=== PATIENT | male | born 1950 | race Caucasian/White ===

== ENCOUNTER → 2021-12-16 08:34 | Outpatient (BNVA) | payer MEDICARE, SELFPAY | PROVIDERS: PCP Internal Medicine; Visit Provider Nurse Practitioner Family | DX: G20 Parkinson's disease (principal); G47.33 Obstructive sleep apnea (adult) (pediatric); G25.81 Restless legs syndrome; F39 Unspecified mood [affective] disorder | CPT/HCPCS: 99212 ==

== ENCOUNTER → 2022-03-20 13:09 | Outpatient (BNVA) | payer MEDICARE, SELFPAY | PROVIDERS: PCP Internal Medicine; Visit Provider Nurse Practitioner Family | DX: G20 Parkinson's disease (principal); G25.81 Restless legs syndrome; G47.33 Obstructive sleep apnea (adult) (pediatric); F39 Unspecified mood [affective] disorder; S62.521A Displaced fracture of distal phalanx of right thumb, initial encounter for closed fracture; S63.104A Unspecified dislocation of right thumb, initial encounter; S06.0X9A Concussion with loss of consciousness of unspecified duration, initial encounter | CPT/HCPCS: 99212 ==

== ENCOUNTER → 2022-06-21 11:22 | Outpatient (BNVA) | payer MEDICARE, SELFPAY | PROVIDERS: PCP Internal Medicine; Visit Provider Nurse Practitioner Family | DX: G20 Parkinson's disease (principal); G25.81 Restless legs syndrome; G47.33 Obstructive sleep apnea (adult) (pediatric); Z79.899 Other long term (current) drug therapy | CPT/HCPCS: 99212 ==

== ENCOUNTER → 2023-01-31 15:42 | Outpatient (BNVA) | payer MEDICARE, SELFPAY | PROVIDERS: PCP Internal Medicine; Visit Provider Nurse Practitioner Family | DX: G20 Parkinson's disease (principal); G25.81 Restless legs syndrome; F39 Unspecified mood [affective] disorder; G47.33 Obstructive sleep apnea (adult) (pediatric); F03.90 Unspecified dementia, unspecified severity, without behavioral disturbance, psychotic disturbance, mood disturbance, and anxiety; G47.52 REM sleep behavior disorder; Z86.73 Personal history of transient ischemic attack (TIA), and cerebral infarction without residual deficits; Z79.899 Other long term (current) drug therapy | CPT/HCPCS: 99212 ==

== ENCOUNTER → 2023-04-27 08:40 | Outpatient (BNVA) | payer MEDICARE, SELFPAY | PROVIDERS: PCP Internal Medicine; Visit Provider Nurse Practitioner Family | DX: G20 Parkinson's disease (principal); M54.50 Low back pain, unspecified; G47.33 Obstructive sleep apnea (adult) (pediatric); I63.81 Other cerebral infarction due to occlusion or stenosis of small artery | CPT/HCPCS: 99212 ==

== ENCOUNTER 2023-08-28 09:28 | Outpatient (AMB) | payer MEDICARE, SELFPAY ==
--- NOTE | 2023-08-28 09:38 | A.OFFVIS_ITS ---
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: No Allergies No Known Allergies Allergy (Verified 08/28/23 09:39) Medication List - Last Reconciled 08/28/23 by ARIN Ghotra aspirin 81 mg PO DAILY 30 days atenolol 50 mg PO DAILY atorvastatin 10 mg PO DAILY baclofen 5 - 10 mg (1 - 2 x 5 mg) PO BEDTIME 30 days bupropion HCl 100 mg PO TID carbidopa-levodopa 25-100 mg 2 tabs bid and 2-3 tabs qhs orally bedtime; 30 days clonazepam 0.5 mg PO BEDTIME 30 days dorzolamide-timolol 22.3-6.8 mg/mL ophthalmic (eye) dulaglutide (Trulicity) 1.5 mg subcut QWEEK furosemide mg PO gabapentin 600 mg PO TID glimepiride 4 mg PO DAILY isosorbide dinitrate 30 mg PO DAILY memantine 10 mg PO BID 30 days metformin ER 1,000 mg PO BID multivitamin (Daily Multi-Vitamin tablet) 1 tab PO DAILY paroxetine HCl 60 mg PO DAILY pramipexole 0.25 mg (2 x 0.125 mg) PO BEDTIME 30 days quetiapine 50 mg PO BEDTIME HPI HPI Comments History of Present Illness Details 73-yr-old male presents for f/u visit. Pt denies any significant interval medical history changes. Pt reports he has been intentionally losing weight using Go-[employer]. His low back pain is a better but he is still sore. He e feels it will get better if he loses some more weight, his back will feel better. Pt's current PD medication regimen: CD-LD 2-3 tabs bid- pt is not 100% sure. Pramipexole 0.25mg qhs. Quetiapine 50mg qhs. Do medication effects last between doses: Unsure ADL's: Overall Ind- slow. Now has a walk-in shower and a shower seat- tries not to take a shower if his is not home. 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 Constipation: Occasionally Freezing: Happens at times- so using his walker. Stiffness: he is often slow and sore. Tremor: Stable. Twice over the summer- he had full body shaking Falls: He feels his balance is worse. He fell twice over the summer. 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 Hallucinations: He is noticing more shadows and people around him. Memory: States STM not good- for instance, he states he will not remember what we've talked about today. His LTM is good. Sleep: He is sleeping better- now about 5 hrs straight a night Exercise: Not much- Other: [] PFS Medical History Diabetes mellitus HTN (hypertension) Hyperlipidemia Open dislocation of right thumb Osteoporosis Status post placement of bone anchored hearing aid (BAHA) Surgical History No pertinent past surgical history Family History (Updated 04/27/23 @ 08:56 by Dedra Cannon CMA) Mother Diabetes Cancer Family/Other Thyroid cancer Social History (Updated 08/28/23 @ 09:41 by Andreina Oakes CMA) Household Members: Spouse Housing: House Alcohol intake: current Alcohol intake frequency: a few times a week Patient Tobacco Use Status: Current everyday Tobacco user Review of Systems Const All systems reviewed & are unremarkable except as noted in HPI and below Physical Exam Vital Signs: Last Vital Signs Pulse 64 08/28/23 09:41 BP 120/76 08/28/23 09:41 Pulse Ox 95 08/28/23 09:41 Oxygen Delivery Method Room Air 08/28/23 09:41 Const General: cooperative and no acute distress Resp Effort & Inspection: normal respiratory effort and able to speak in complete sentences Neuro Other: General: A&O. Responding appropriately. Mild STM lapses- for instance w/ medication timing Chronic left facial asymmetry Mild [place] LUE rest and postural tremor BUE bradkinesia- L > R BLE bradykinesia- L > R LUE tone Slow to stand, stooped, steady gait w/ walker. Assessment & Plan Assessment & Plan (1) Parkinson's disease: Code(s): G20 - Parkinson's disease (2) REM sleep behavior disorder: Code(s): G47.52 - REM sleep behavior disorder (3) Restless leg syndrome: Code(s): G25.81 - Restless legs syndrome (4) Dementia: Code(s): F03.90 - Unspecified dementia, unspecified severity, without behavioral disturbance, psychotic disturbance, mood disturbance, and anxiety Plan For low back pain: Offered PT and pain management referal- pt declines at this time. Continue Baclofen 5-10mg prn. Warm packs x's 20 min prn Consider trying ?Rytary to improve duration of effect and reduce risk for hallucinations- info gievn to pt- he will discuss with and let me know. In the meantime, try Sinemet 25-100mg to 2 tabs tid- maybe use an alarm or times med box. Continue Pramipexole 0.125 mg 2 tabs qhs Continue Memantine 10mg bid Continue Gabapentin up to 1200mg qhs. Clonazepam 0.5mg qhs- prn for REM sleep behaviors. Continue Wellbutrin, Paxil- now managed by PCP.? Increase walking. Previous trials: Neupro patch- d/t skin irritation. f/u in 3-4 months or sooner prn Coding Level of Care Code Est Pt Level 4 (38754) Diagnoses Parkinson's disease G20 REM sleep behavior disorder G47.52 Restless leg syndrome G25.81 Dementia F03.90
[2023-08-28 09:41] VITALS: BP 120/76; PULSE 64; O2SAT 95
== END 2023-08-28 10:16 | disposition home or self-care (01) ==
PROVIDERS: PCP Internal Medicine; Visit Provider Nurse Practitioner Family
DX: G20.A1 Parkinson's disease without dyskinesia, without mention of fluctuations (principal); F02.82 Dementia in other diseases classified elsewhere, unspecified severity, with psychotic disturbance; G47.52 REM sleep behavior disorder; G25.81 Restless legs syndrome
CPT/HCPCS: 99214

== ENCOUNTER → 2023-08-28 09:28 | Outpatient (BNVA) | payer MEDICARE, SELFPAY | PROVIDERS: PCP Internal Medicine; Visit Provider Nurse Practitioner Family | DX: G20.A1 Parkinson's disease without dyskinesia, without mention of fluctuations (principal); G25.81 Restless legs syndrome; G47.52 REM sleep behavior disorder | CPT/HCPCS: 99212 ==

== ENCOUNTER 2023-12-21 09:24 | Outpatient (AMB) | payer MEDICARE, SELFPAY ==
[2023-12-21 09:32] VITALS: BP 138/82; PULSE 63; O2SAT 95; BMI 37.7
--- NOTE | 2023-12-21 09:32 | MHC.OFFVIS ---
Intake Vital Signs 12/21/23 09:32 Height 5 ft 11 in Weight 270 lb BMI 37.7 BP 138/82 Blood Pressure Location Rt brachial Position Sitting Pulse 63 Pulse Source Pulse Oximeter Pulse Oximetry (%) 95 Oxygen Delivery Method Room Air Intake Visit Reasons: 4M follow up-LVM Intake Note: Patient presents for 4 month follow up. Im having balance issues,forgetting things and seeing things. I get dizzy more than I have been. Allergies No Known Allergies Allergy (Verified 12/21/23 09:35) Medication List - Last Reconciled 12/21/23 by ARIN Ghotra aspirin 81 mg PO DAILY 30 days atenolol 50 mg PO DAILY atorvastatin 10 mg PO DAILY baclofen 5 - 10 mg (1 - 2 x 5 mg) PO BEDTIME 90 days bupropion HCl 100 mg PO TID carbidopa-levodopa 25-100 mg 2 tabs bid and 2-3 tabs qhs orally bedtime; 30 days carbidopa-levodopa 48.75-195 mg ER (Rytary) 2 caps PO TID 30 days clonazepam 0.5 mg PO BEDTIME 30 days dorzolamide-timolol 22.3-6.8 mg/mL ophthalmic (eye) dulaglutide (Trulicity) 1.5 mg subcut QWEEK furosemide mg PO gabapentin 600 mg PO TID glimepiride 4 mg PO DAILY isosorbide dinitrate 30 mg PO DAILY memantine 10 mg PO BID 30 days metformin ER 1,000 mg PO BID multivitamin (Daily Multi-Vitamin tablet) 1 tab PO DAILY paroxetine HCl 60 mg PO DAILY pramipexole 0.25 mg (2 x 0.125 mg) PO BEDTIME 30 days quetiapine 50 mg PO BEDTIME HPI HPI Comments History of Present Illness Details 73-yr-old male presents for f/u visit, accompanied by his . Pt had a recent dx of scalp basal cell CA, and is awaiting biopsy results from 2 other crown of head biopsy sites. F/b [facility], and was referred to surgeon at [facility]. Pt's current PD medication regimen: Rytary 48.75-195mg ordered as 2 caps tid but taking 3 caps bid. Do medication effects last between doses: unsure His low back feels better. Still using Baclofen mg qhs. ADL's: Overall Ind- slow. Has a walk-in shower and a shower seat- tries not to take a shower if his is not home. 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 Can be lightheaded when just sitting. thinks that he might not eat enough during the day. Constipation: Occasionally Freezing: The right leg can get stuck/heavy. Stiffness: he is often slow and sore. Tremor: Better since starting Rytary, but still varies. Tremor is worse when he has not slept well. More noticeable on the left. Posture: Leaning more to the right- while sitting or walking. The toes- are prone to posturing, sticking up straight . right foot is turning out more. Falls: None Hallucinations: Yes- sometimes bothersome- yesterday kept seeing a cat or a dog coming out of the hallway. May think his is in the bathroom. May wake up seeing someone staring at him. Mood: Increased stress- son has been ill lately. Memory: STM- difficulties. He may think that he had a conversation with his , but did not. His LTM is good. Sleep: Not sleeping as well- now 4 hrs per night, can be interrupted and gets up and takes a smoke outside w/ his dog. He can still take naps during the day. Exercise: Not much. [facility] Medical History (Updated 12/23/23 @ 20:58 by ARIN Ghotra) Parkinson's disease Status post placement of bone anchored hearing aid (BAHA) Open dislocation of right thumb Diabetes mellitus Osteoporosis Hyperlipidemia HTN (hypertension) Surgical History No pertinent past surgical history Family History Mother Diabetes Cancer Family/Other Thyroid cancer Social History Household Members: Spouse Housing: House Alcohol intake: current Alcohol intake frequency: a few times a week Patient Tobacco Use Status: Current everyday Tobacco user Review of Systems Const All systems reviewed & are unremarkable except as noted in HPI and below Physical Exam Vital Signs: Last Vital Signs Pulse 63 12/21/23 09:32 BP 138/82 12/21/23 09:32 Pulse Ox 95 12/21/23 09:32 Oxygen Delivery Method Room Air 12/21/23 09:32 BMI result Body Mass Index 37.7 Const General: cooperative and no acute distress Resp Effort & Inspection: normal respiratory effort and able to speak in complete sentences Neuro Other: General: A&O. Responding appropriately. Mild STM lapses. Chronic left facial asymmetry Mild [place] LUE rest and postural tremor BUE bradkinesia- L > R BLE bradykinesia- L > R LUE tone Slow to stand, stooped, short steps w/ RLE slight outturn, steady gait w/ walker. Assessment & Plan Assessment & Plan (1) Parkinson's disease without dyskinesia: Code(s): G20.A1 - Parkinson's disease without dyskinesia, without mention of fluctuations (2) Dementia: Code(s): F03.90 - Unspecified dementia, unspecified severity, without behavioral disturbance, psychotic disturbance, mood disturbance, and anxiety (3) Low back pain: Code(s): M54.50 - Low back pain, unspecified Plan For low back pain: Improved Continue Baclofen 5-10mg prn. Rytary has been helpful, however discussed that pt likely would have better benefit/side effect balance, as taking Rytary 3 caps bid may be exacerbating hallucination burden. Thus, try to take Rytary 48.75-195mg 2 caps tid. Continue Pramipexole 0.125 mg 2 tabs qhs Continue Memantine 10mg bid Continue Gabapentin up to 1200mg qhs. Clonazepam 0.5mg qhs- prn for REM sleep behaviors. Continue Wellbutrin, Paxil- now managed by PCP.? Increase walking. Previous trials: Neupro patch- d/t skin irritation. f/u in 3-4 months or sooner prn Coding Level of Care Code Est Pt Level 4 (90349) Diagnoses Parkinson's disease without dyskinesia G20.A1 Dementia F03.90 Low back pain M54.50
== END 2023-12-21 10:30 | disposition home or self-care (01) ==
PROVIDERS: PCP Internal Medicine; Visit Provider Nurse Practitioner Family
DX: G20.A1 Parkinson's disease without dyskinesia, without mention of fluctuations (principal); F03.90 Unspecified dementia, unspecified severity, without behavioral disturbance, psychotic disturbance, mood disturbance, and anxiety; M54.50 Low back pain, unspecified
CPT/HCPCS: 99214

== ENCOUNTER → 2023-12-21 09:24 | Outpatient (BNVA) | payer MEDICARE, SELFPAY | PROVIDERS: PCP Internal Medicine; Visit Provider Nurse Practitioner Family | DX: G20.A1 Parkinson's disease without dyskinesia, without mention of fluctuations (principal); M54.50 Low back pain, unspecified; F03.90 Unspecified dementia, unspecified severity, without behavioral disturbance, psychotic disturbance, mood disturbance, and anxiety | CPT/HCPCS: 99212 ==

== ENCOUNTER 2024-04-14 10:49 | Outpatient (AMB) | payer MEDICARE, SELFPAY ==
--- NOTE | 2024-04-14 10:50 | MHC.OFFVIS ---
Intake Visit Reasons: 4 MONTH F/U-CONF Intake Note: Patient following up 4 month. Allergies No Known Allergies Allergy (Verified 04/14/24 10:51) Medication List - Last Reconciled 04/14/24 by ARIN Ghotra aspirin 81 mg PO DAILY 30 days atenolol 50 mg PO DAILY atorvastatin 10 mg PO DAILY baclofen 5 - 10 mg (1 - 2 x 5 mg) PO BEDTIME 90 days bupropion HCl 100 mg PO TID carbidopa-levodopa 25-100 mg 2 tabs bid and 2-3 tabs qhs orally bedtime; 30 days carbidopa-levodopa 48.75-195 mg ER (Rytary) 2 caps PO TID 30 days clonazepam 0.5 mg PO BEDTIME 30 days dorzolamide-timolol 22.3-6.8 mg/mL ophthalmic (eye) dulaglutide (Trulicity) 1.5 mg subcut QWEEK furosemide mg PO gabapentin 600 mg PO TID glimepiride 4 mg PO DAILY isosorbide dinitrate 30 mg PO DAILY memantine 10 mg PO BID 30 days metformin ER 1,000 mg PO BID multivitamin (Daily Multi-Vitamin tablet) 1 tab PO DAILY paroxetine HCl 60 mg PO DAILY pramipexole 0.25 mg (2 x 0.125 mg) PO BEDTIME 30 days quetiapine 50 mg PO BEDTIME HPI Comments Details: 73-yr-old male presents for f/u televideo visit, accompanied by his . Pt reports he did have an integral fall, he was leaving his ENT office after having an ear wax removal. He states he felt ok, was not dizzy. Was walking with his walker when he was about to go through the exam room doorway when he just fell. He is not sure if the RLE was stuck/frozen. He is noticing that his RLE is freezing more.? His memory is variable- somedays//weeks he is very good and other days and weeks he does not remember well at all. His feels when he is eating better, his memory is better.? His eating pattern does not affect his PD s/s as much. He is prone to not eating much- if not hungry, he will not eat.? He takes fluids in the am,, but less so in the afternoon when he is in bed watching TV. This is a hospital bed- so bed is elevated.? He is still not sleeping well at night. Seeing shadows or ghosts. He may be talking to someone while awake- he states he is not aware of this.? Is talking and fighting in his sleep. Has had a few times of orthostatic lightheadedness. A few days ago, he stood up from bed, and fell backwards onto the bed. He is taking: Rytary 3 caps bid- as he was not good at taking 2 caps tid consistently. Pramipexole- 0.125mg 2 tabs qhs.? [facility] Medical History (Updated 12/23/23 @ 20:58 by ARIN Ghotra) Parkinson's disease Status post placement of bone anchored hearing aid (BAHA) Open dislocation of right thumb Diabetes mellitus Osteoporosis Hyperlipidemia HTN (hypertension) Surgical History No pertinent past surgical history Family History Mother Diabetes Cancer Family/Other Thyroid cancer Social History Household Members: Spouse Housing: House Alcohol intake: current Alcohol intake frequency: a few times a week Patient Tobacco Use Status: Current everyday Tobacco user Physical Exam Neuro Other: A&O. Responding appropriately. Mild STM lapses. Chronic left facial asymmetry Mild [place] Telehealth Telehealth Telehealth Platform: [facility] Location of provider rendering services: practice address Location of patient: address on file Patient Identification confirmed using: Name, : Yes Telehealth method: voice only Patient verbally consented to treatment: Yes Patient verbally consented to billing insurance company: Yes Patient informed of any privacy concerns related to visit: Yes Minutes spent on Phone/Video with Pt.: 25 Assessment & Plan Assessment & Plan (1) Parkinson's disease without dyskinesia: Code(s): G20.A1 - Parkinson's disease without dyskinesia, without mention of fluctuations Category: Medical (2) REM sleep behavior disorder: Code(s): G47.52 - REM sleep behavior disorder Category: Medical (3) Restless leg syndrome: Code(s): G25.81 - Restless legs syndrome Category: Medical (4) Dementia: Code(s): F03.90 - Unspecified dementia, unspecified severity, without behavioral disturbance, psychotic disturbance, mood disturbance, and anxiety Category: Medical Plan Discussed that I am concerned that taking Rytary 3 caps bid- is likely resulting in noticeable off and on times- thus periods of increased freezing and other periods of hallucinations. It is possible that the fall at the ENT office was d/t an off/freezing episode as it occurred as ppt was trying to cross the threshhold of a doorway. Thus, reduce Rytary 48.75-196mg from 3 caps bid to 2 caps bid. And add Pramipexole ER 0.375mg qhs- in hopes this improves on time- and thus reduces freezing episodes. May hold Pramipexole 0.125mg 2 tabs qhs, while trying above. Monitor for tremor, freezing epsiodes, hallucinations. Continue Memantine 10mg bid Continue Gabapentin up to 1200mg qhs- for RLS/PLMS. Continue Baclofen 5-10mg prn- for low back pain. Clonazepam 0.5mg qhs- prn for REM sleep behaviors. Continue Wellbutrin, Paxil- now managed by PCP.? Increase walking. Discussed tips to improve dietary intake- small amounts of calorie, nutrient dense foods. Previous trials: Neupro patch- d/t skin irritation. ? f/u in 6 months or sooner prn. Medications: New pramipexole ER 0.375 mg PO BEDTIME 30 days 30 tabs 6RF Changed From carbidopa-levodopa 48.75-195 mg ER (Rytary) divide evenly over waking hours 2 caps PO TID 30 days 180 caps 6RF To carbidopa-levodopa 48.75-195 mg ER (Rytary) 2 caps orally BID; divide evenly over waking hours 30 days 120 caps 6RF Discontinued carbidopa-levodopa 25-100 mg Discontinued Reason: Patient no longer taking 2 tabs bid and 2-3 tabs qhs orally bedtime; 30 days 210 tabs 6RF Coding Level of Care Code Tele Est Pt Level 4 (51501) Diagnoses Parkinson's disease without dyskinesia G20.A1 REM sleep behavior disorder G47.52 Restless leg syndrome G25.81 Dementia F03.90
== END 2024-04-14 13:19 | disposition home or self-care (01) ==
LOC: HO.HSMS 10:49
PROVIDERS: PCP Internal Medicine; Visit Provider Nurse Practitioner Family
DX: G20.A2 Parkinson's disease without dyskinesia, with fluctuations (principal); F02.82 Dementia in other diseases classified elsewhere, unspecified severity, with psychotic disturbance; G47.52 REM sleep behavior disorder; G25.81 Restless legs syndrome
CPT/HCPCS: 99443

== ENCOUNTER → 2024-04-14 10:49 | Outpatient (BNVA) | payer MEDICARE, SELFPAY | PROVIDERS: PCP Internal Medicine; Visit Provider Nurse Practitioner Family ==

== ENCOUNTER 2024-10-31 13:27 | Outpatient (AMB) | payer MEDICARE, SELFPAY ==
--- OUTSIDE RECORDS SUMMARY | 2024-10-31 13:30 | XMS_ITS ---
Author Organization [facility] Address [address] [place] [address] Care Team Providers Care [employer] Name Role Phone Imelda SELLERS, Marcin Primary Care Provider UnavailJeremy Fraser Unavailable [phone] Allergies No Known Allergies REASON FOR VISIT pcp 07/2024, Skin problem(s), Painful nail(s) aggravated by shoes causing difficulty standing/walking Medications Medication SIG (Take, Route, Frequency, Duration) Notes Start Date End Date Status Atorvastatin Calcium 10 MG TAKE 1 TABLET BY MOUTH EVERY DAY Oral for 90 Days Active buPROPion HCl ER (SR) 200 MG TAKE 1 TABLET BY MOUTH EVERY DAY WITH BREAKFAST Oral for 90 Days Active buPROPion HCl ER (SR) 200 MG Oral for 90 Days Active metFORMIN HCl ER 500 MG TAKE 2 TABLETS B Y MOUTH TWICE A DAY WITH MEALS Oral for 90 Days Active metFORMIN HCl ER 500 MG Oral for 90 Days Active Baclofen 5 MG Oral for 30 Days Active Gabapentin 600 MG Oral for 90 Days Active Gabapentin 600 MG TAKE 1 TABLET BY SHONA TH THREE TIMES A DAY Oral for 90 Days Active Latanoprost 0.005 % INSTILL 1 DROP INTO BOTH EYES EVERY NIGHT DIRECTED Ophthalmic for 90 Days Active Baclofen 5 MG TAKE 1-2 TABS ORALLY BEDTIME FOR 30 DAYS Oral for 30 Days Active Ammonium Lactate 12 % 1 application Externally to affected areas of dry skin to feet except for between the toes Twice a day for 30 days Active Tobramycin-dexAMETHasone 0.3-0.1 % Ophthalmic for 14 Days Activ e Latanoprost 0.005 % Ophthalmic for 90 Days Active Dorzolamide HCl-Timolol Mal 2-0.5 % INSTILL 1 DROP INTO BOTH EYES TWICE A DAY DIRECTED Ophthalmic for 50 Days Active Tobramycin-dexAMETHasone 0.3-0.1 % APPLY 4 DROPS INTO THE AFFECTED EAR TWICE A DAY X 14 DAYS Ophthalmic for 14 Days Active Rytary 48.75-195 MG TAKE 2 CAPS ORALLY TWICE A DAY DIVIDE EVENLY OVER WAKING HOURS Oral for 30 Days Active PARoxetine HCl 30 MG Oral for 90 Days Active Rytary 48.75-195 MG Oral for 30 Days Active PARoxetine HCl 30 MG TAKE 2 TABLETS BY M OUTH EVERY MORNING FOR 180 DAYS. Oral for 90 Days Active Dorzolamide HCl-Timolol Mal 2-0.5 % Ophthalmic for 50 Days Activ e Furosemide 20 MG Oral for 90 Days Active Memantine HCl 10 MG TAKE 1 TABLET BY SHONA TH TWICE A DAY Oral for 90 Days Active Ketoconazole 2 % External for 30 Days Not-Taking Furosemide 20 MG TAKE 1 TABLET BY SHONA TH EVERY OTHER DAY Oral for 90 Days Active Memantine HCl 10 MG Oral for 90 Days Active Isosorbide Mononitrate ER 30 MG Oral for 90 Days Active Aspirin Low Dose 81 MG TAKE 1 TABLET BY MOUTH EVERY DAY Oral for 90 Days Active Isosorbide Mononitrate ER 30 MG TAKE 1 TABLET BY MOUTH EVERY DAY Oral for 90 Days Active Atenolol 50 MG Oral for 90 Days Active Atenolol 50 MG TAKE 1 TABLET BY SHONA TH EVERY DAY Oral for 90 Days Active Atorvastatin Calcium 10 MG Oral for 90 Days Active Social History Tobacco Use: Social History Observation Description Date Details (start date - stop date) Current Smoker NA - NA Tobacco Control (Standard) Question Answer Notes Tobacco use: Current every day smoker Additional Findings: Tobacco user Moderate cigar ette smoker (10-19 cigs/day) AUDIT-C (Standard) Question Answer Notes Did you have a drink contain ing alcohol in the past year? Yes How often did you have six o r more drinks on one occasion in the past year? Never (0 point) How many drinks did you have on a typical day when you were drinking in the past year? 5 or 6 drinks (2 points) How often did you have a dri nk containing alcohol in the past year? Daily or almost daily (4 points) Points 6 Interpretation Positive Vital Signs Height 6ft in 10/28/2024 Weight 270 lbs 10/28/2024 BMI 36.61 kg/m2 10/28/2024 Blood pressure systolic 134 mm Hg 10/28/20 24 Blood pressure diastolic 80 mm Hg 024 Procedures Procedure Date Ordered Date Performed Result Body Sit e 73417-LVYULRZ NAIL, 6 OR MORE 10/28/2024 N/A Encounters Encounter Location Date Provider Diagnosis [facility] [address] [address] 10/28/2024 Jeremy Perales Xerosis of skin L85. 3 ; Pain in right toe(s) M79.674 ; Onychomycosis B35.1 and Pain in left toe(s) M79.675 Assessments Encounter Date Diagnosis (ICD Code) Assessment Notes Treatment Notes Treatment Clinical Notes Section Notes 10/28/2024 Xerosis of skin (ICD-10 - L85.3) 10/28/2024 Pain in right toe(s) (ICD-10 - M79.674) 10/28/2024 Onychomycosis (ICD-10 - B35.1) 10/28/2024 Pain in left toe(s) (ICD-10 - M79.675) Plan Of Treatment Medication Medication Name Sig Start Date Stop Date Notes Ammonium Lactate 12 % 1 application Exte rnally to affected areas of dry skin to feet except for between the toes Twice a day for 30 days Pending Test Test Name Order Date [id number] NAIL, 6 OR MORE 10/28/2024 Next Appt Details Follow Up: 60, Reason: Provider Name:Jeremy Perales, 01/13/2025 10:15:00 AM, [address] [facility], [place], [address], Procedure Notes * Category Sub-Category Detail Notes Debride Nail 6-10 Nail debridement Due to the cl inical pathology outlined in the exam findings, performance of this nail treatment is medically necessary as its management by an unskilled/untrained nonprofessional would put this patients foot and overall health at risk. Therefore, debridement to affected nail(s), as described in exam 1-5 digits B/L was performed exclusively by the physician of record to reduce/remove overall nail length, girth, thickness, subungual debris, and necrotic tissue, by manual and/or electrical means through the use of a nail nipper and/or dremel-type broach grinder, to a more viable healthy nail plate or bed tissue 6-10 nails in total. Silver nitrate was used for any petechial bleeding as necessary. Definitive antifungal treatment options, both pharmaceutical and surgical, have been reviewed and discussed with the patient. The patient solely prefers the use of intermittent/as needed professional debridement services for their nail condition and understands the need for additional periodic treatments to maintain effectiveness in symptomatic relief - 90082 Progress Notes * Ahmet ASHLEYOB:1950 (74 yo M)Acc No.[id number]:10/28/2024 Progress Notes Patient:?Jose ASHLEY Provider:?Jeremy Perales D.P.M. :1950???Age:74 Y???Sex:Male Rufino e:10/28/2024 Address:[address] [place], [place] [address] Pcp:Marcin Segura MD Subjective: * Chief Complaints: * ???Pcp 07/2024Skin problem(s )Painful nail(s) aggravated by shoes causing difficulty standing/walking * HPI: ???Skin problems:?Nature:?dryness , scaling.?Location:?Top, Bottom, Inside, Outside, Back, B/L.?Duration:?several months.?Onset/Cause:?unknown.?Course:?worse.? * ROS:?General/Constitutional:?Nausea?denies.?Vomiting?denies.?Hunger Thirst?denies.?Loss appetite?denies.?Chills?denies.?Fatigue?denies.?Fever?denies.?Night Sweats?denies.?Unexplained weight loss?denies.?Unexplained weight gain?denies.?HEENTM:?Dentures?denies.?Dizziness?denies.?Glasses/contacts?admits.?Retinopathy?den ies.?Blurred/double vision?denies.?TMJ?denies.?Discharge/drainage?denies.?Implants?denies.?Sore throat?denies.?Dental implants?denies.?Hard of hearing ?admits.?Difficulty chewing/swallowing/speaking?denies.?Nose bleeds?denies.?Sore mouth?denies.?Respiratory:?On O xygen?denies.?Pneumonia/pleurisy?denies.?Bronchitis?denies.?Emphysema?denies.?Co ughing?admits.?Cough blood?denies.?Shortness of breath?admits.?Wheezing?admits.?Cardiovascular:?Pacemaker?denies.?MVP?denies.?WPW?denies.?CHF?denies.?Heart attack?denies.?Septal defect?denies.?Rapid beat?denies.?Chest pain ?admits.?Atrial Fib.?denies.?Murmur/Palpitations?denies.?Gastrointestinal:?Hemorrhoids?denies.?Stomach/Abdominal pain?denies.?Dark blood stool?denies.?Irritable bowel ?denies.?Constipation?admits.?Diarrhea?denies.?Hematology:?Swelling?admits.?Clots?denies.?Varicose Veins?denies.?Bruising?denies.?Bleeding problem?denies.?Genitourinary:?Blood urine?denies.?Frequent/Painfu/urination/bladder control?denies.?Kidney stones?denies.?Infection (UTI)?denies.?Nephropathy?denies.?sex trans dis (STD)?denies.?Prostate?denies.?Musculoskeletal:?Hammertoes?denies.?Bunions?denies.?Back Pain?admits.?Muscle Cramps/ Resting?admits.?Muscle cramps / walking?denies.?Generalized aches and pains?admits.?Weakness?denies.?Integ.:?Sorto?denies.?Scars?denies.?Corns/calluses?denies.?Ingrown nails?denies.?Painful nails?admits.?Open Sores?denies.?Rashes?denies.?Neurologic:?Difficulty sleeping?admits.?Brain disorder?denies.?Numbness?admits.?Balance t rouble?admits.?Confusion?admits.?Fainting/blackouts?denies.?Tingling?admits.?Cade mors?admits.? * Medical History:? * Surgical History:?cochlear i mplant 2012Carpel Tunnel Revision 2012knee, meniscus 2009left knee replacement 2019varicose vein stripping 2017mastoidectomy 1977 * Hospitalization/Major Diagno stic Procedure:?Denies Past Hospitalization * Family History:?Mother: dece ased, type II diabetes, cancer.?Father: , stroke.? * Social History:?Tobacco Use:?Tobacco Control (Standard)?Tobacco use:?Current every day smoker ?Additional Findings: Tobacco user?Moderate cigarette smoker (10-19 cigs/day) ???Drugs/Alcohol:?Drugs?Have you used drugs other than those for medical reasons in the past 12 months??No ???Miscellaneous:?Caffeine: yes, frequency:, 2-3 cups per day. ?Children: yes, 4. ?Exercise: no. ?Marital status: . ?Occupation: weeks/months/years, Retired. ???Drug/Alcohol:?AUDIT-C (Standard)?Did you have a drink containing alcohol in the past year??Yes ?How often did you have six or more drinks on one occasion in the past year??Never (0 point) ?How many drinks did you have on a typical day when you were drinking in the past year??5 or 6 drinks (2 points) ?How often did you have a drink containing alcohol in the past year??Daily or almost daily (4 points) ?Points?6 ?Interpretation?Positive * Medications:?TakingFurosemid e 20 MG Tablet Oral Rytary 48.75-195 MG Capsule Extended Release Oral Rytary 48.75-195 MG Capsule Extended Release TAKE 2 CAPS ORALLY TWICE A DAY DIVIDE EVENLY OVER WAKING HOURS Oral PARoxetine HCl 30 MG Tablet Oral PARoxetine HCl 30 MG Tablet TAKE 2 TABLETS BY MOUTH EVERY MORNING FOR 180 DAYS. Oral Dorzolamide HCl-Timolol Mal 2-0.5 % Solution Ophthalmic Dorzolamide HCl-Timolol Mal 2-0.5 % Solution INSTILL 1 DROP INTO BOTH EYES TWICE A DAY DIRECTED Ophthalmic Tobramycin-dexAMETHasone 0.3-0.1 % Suspension APPLY 4 DROPS INTO THE AFFECTED EAR TWICE A DAY X 14 DAYS Ophthalmic Tobramycin-dexAMETHasone 0.3-0.1 % Suspension Ophthalmic Latanoprost 0.005 % Solution Ophthalmic Latanoprost 0.005 % Solution INSTILL 1 DROP INTO BOTH EYES EVERY NIGHT DIRECTED Ophthalmic Baclofen 5 MG Tablet TAKE 1-2 TABS ORALLY BEDTIME FOR 30 DAYS Oral Gabapentin 600 MG Tablet Oral Gabapentin 600 MG Tablet TAKE 1 TABLET BY MOUTH THREE TIMES A DAY Oral Baclofen 5 MG Tablet Oral metFORMIN HCl ER 500 MG Tablet Extended Release 24 Hour TAKE 2 TABLETS BY MOUTH TWICE A DAY WITH MEALS Oral metFORMIN HCl ER 500 MG Tablet Extended Release 24 Hour Oral buPROPion HCl ER (SR) 200 MG Tablet Extended Release 12 Hour TAKE 1 TABLET BY MOUTH EVERY DAY WITH BREAKFAST Oral buPROPion HCl ER (SR) 200 MG Tablet Extended Release 12 Hour Oral Atorvastatin Calcium 10 MG Tablet TAKE 1 TABLET BY MOUTH EVERY DAY Oral Atorvastatin Calcium 10 MG Tablet Oral Atenolol 50 MG Tablet Oral Atenolol 50 MG Tablet TAKE 1 TABLET BY MOUTH EVERY DAY Oral Isosorbide Mononitrate ER 30 MG Tablet Extended Release 24 Hour TAKE 1 TABLET BY MOUTH EVERY DAY Oral Isosorbide Mononitrate ER 30 MG Tablet Extended Release 24 Hour Oral Aspirin Low Dose 81 MG Tablet Delayed Release TAKE 1 TABLET BY MOUTH EVERY DAY Oral Furosemide 20 MG Tablet TAKE 1 TABLET BY MOUTH EVERY OTHER DAY Oral Memantine HCl 10 MG Tablet Oral Memantine HCl 10 MG Tablet TAKE 1 TABLET BY MOUTH TWICE A DAY Oral Taking Furosemide 20 MG Tablet Oral Taking Rytary 48.75-195 MG Capsule Extended Release Oral Taking Rytary 48.75-195 MG Capsule Extended Release TAKE 2 CAPS ORALLY TWICE A DAY DIVIDE EVENLY OVER WAKING HOURS Oral Taking PARoxetine HCl 30 MG Tablet Oral Taking PARoxetine HCl 30 MG Tablet TAKE 2 TABLETS BY MOUTH EVERY MORNING FOR 180 DAYS. Oral Taking Dorzolamide HCl-Timolol Mal 2-0.5 % Solution Ophthalmic Taking Dorzolamide HCl-Timolol Mal 2-0.5 % Solution INSTILL 1 DROP INTO BOTH EYES TWICE A DAY DIRECTED Ophthalmic Taking Tobramycin-dexAMETHasone 0.3-0.1 % Suspension APPLY 4 DROPS INTO THE AFFECTED EAR TWICE A DAY X 14 DAYS Ophthalmic Taking Tobramycin-dexAMETHasone 0.3-0.1 % Suspension Ophthalmic Taking Latanoprost 0.005 % Solution Ophthalmic Taking Latanoprost 0.005 % Solution INSTILL 1 DROP INTO BOTH EYES EVERY NIGHT DIRECTED Ophthalmic Taking Baclofen 5 MG Tablet TAKE 1-2 TABS ORALLY BEDTIME FOR 30 DAYS Oral Taking Gabapentin 600 MG Tablet Oral Taking Gabapentin 600 MG Tablet TAKE 1 TABLET BY MOUTH THREE TIMES A DAY Oral Taking Baclofen 5 MG Tablet Oral Taking metFORMIN HCl ER 500 MG Tablet Extended Release 24 Hour TAKE 2 TABLETS BY MOUTH TWICE A DAY WITH MEALS Oral Taking metFORMIN HCl ER 500 MG Tablet Extended Release 24 Hour Oral Taking buPROPion HCl ER (SR) 200 MG Tablet Extended Release 12 Hour TAKE 1 TABLET BY MOUTH EVERY DAY WITH BREAKFAST Oral Taking buPROPion HCl ER (SR) 200 MG Tablet Extended Release 12 Hour Oral Taking Atorvastatin Calcium 10 MG Tablet TAKE 1 TABLET BY MOUTH EVERY DAY Oral Taking Atorvastatin Calcium 10 MG Tablet Oral Taking Atenolol 50 MG Tablet Oral Taking Atenolol 50 MG Tablet TAKE 1 TABLET BY MOUTH EVERY DAY Oral Taking Isosorbide Mononitrate ER 30 MG Tablet Extended Release 24 Hour TAKE 1 TABLET BY MOUTH EVERY DAY Oral Taking Isosorbide Mononitrate ER 30 MG Tablet Extended Release 24 Hour Oral Taking Aspirin Low Dose 81 MG Tablet Delayed Release TAKE 1 TABLET BY MOUTH EVERY DAY Oral Taking Furosemide 20 MG Tablet TAKE 1 TABLET BY MOUTH EVERY OTHER DAY Oral Taking Memantine HCl 10 MG Tablet Oral Taking Memantine HCl 10 MG Tablet TAKE 1 TABLET BY MOUTH TWICE A DAY Oral Not-Taking/PRNKetoconazole 2 % Cream External Medication List reviewed and reconciled with the patientNot-Taking/PRN Ketoconazole 2 % Cream External Medication List reviewed and reconciled with the patient * Allergies:?N.K.D.A.yes[Aller gies Verified] Objective: * Vitals:?Ht: 6ft, Wt:270, BMI :36.61, Shoe size: 11.5 W, BP:134/80mm Hg, BS: 120, Ht-cm: 182.88 cm, Wt-k.47 kg. * ???Past Orders: ???Lab:HEMOGLOBIN A1C (GLYCO HEMOGLOBIN) (Order Date - 07/30/2024) (Collection Date & Time - 07/30/2024 10:43 AM) ? Value Reference Range ?TOTAL HEMOGLOBIN (HGBA1C) 6.5 * Examination: ???Ophthalmology Referral: ?DIABETES EYE EXAM?General Examination: ?GENERAL APPEARANCE:?Reveals a pleasant, alert, well-nourished, well- developed, well hydrated individual, who demonstrates proper attention to hygiene/body habitus, and is in no acute distress, Pt serves as own?historian for office visit today.?ORIENTED:?person, place, and time.?Neurological: ?SENSORY:?Neurological exam reveals intact sensorium, pain sensation normal, vibration sensation intact, pinprick sensation is normal in the lower extremities, Pt denies, anesthesia, burning, paresthesia, tingling, B/L.?DEEP TENDON REFLEXES:?Achilles, 2/4, B/L.?Vascular: ?DP PULSES(B):?2/4, B/L.?PT PULSES(B):?2/4, B/L.?CAPILLARY FILL TIME:?immediate, all digits, B/L.?TROPHIC CONDITION-TEXTURE/ELASTICITY/TURGOR/HAIR GROWTH(B):?normal, B/L.?TEMPERTURE GRADIENT(C):?warm to cool, proximal to distal, B/L.?PIGMENTATION:?normal, B/L.?EDEMA(C):?absent, B/L.?Dermatologic: ?SKIN FINDINGS:?Skin exam reveals normal texture, elasticity, and turgor. There are no masses. The interspaces are clear , Skin shows sign(s) of, dryness, scaling, in a stocking fashion, no fissure(s) present, B/L.?Orthopedic: ?MUSCLE STRENGTH:?5/5 all groups in a symmetrical fashion , B/L.?Nails: ?NAILS are:?Elongated, overgrown, dystrophic, lytic, greater than 3mm thick, discolored and friable with crumbly malodorous subungual debris, with pain on palpation 1-5 digits B/L.? Assessment: * Assessment: 1.?Xerosis of skin - L85.3?? ?Specify :Acute problem, Uncomplicated (3),Rx Management (4)???2.?Pain in right toe(s) - M79.674???3.?Onychomycosis - B35.1 (Primary)???4.?Pain in left toe(s) - M79.675??? Plan: * Treatment: 2.?Xerosis of skin? Start Ammonium Lactate Cream, 12 %, 1 application, Externally to affected areas of dry skin to feet except for between the toes, Twice a day, 30 days, 140, Refills 2.?? * Procedures:?Debride Nail 6-10:?Nail debridement?Due to the clinical pathology outlined in the exam findings, performance of this nail treatment is medically necessary as its management by an unskilled/untrained nonprofessional would put this patients foot and overall health at risk. Therefore, debridement to affected nail(s), as described in exam 1-5 digits B/L was performed exclusively by the physician of record to reduce/remove overall nail length, girth, thickness, subungual debris, and necrotic tissue, by manual and/or electrical means through the use of a nail nipper and/or dremel-type broach grinder, to a more viable healthy nail plate or bed tissue 6-10 nails in total. Silver nitrate was used for any petechial bleeding as necessary. Definitive antifungal treatment options, both pharmaceutical and surgical, have been reviewed and discussed with the patient. The patient solely prefers the use of intermittent/as needed professional debridement services for their nail condition and understands the need for additional periodic treatments to maintain effectiveness in symptomatic relief - 48913.? * Procedure Codes:?51969 DEBRI DE NAIL, 6 OR MORE * Preventive Medicine:? ??Counseling:?Discussion:?-13: Office or other outpatient visit for the evaluation and management of an established patient, which required a medically appropriate history and/or examination and LOW level of DECISION MAKING for: 1 STABLE ACUTE UNCOMPLICATED PROBLEM, 2 OR MORE MINOR PROBLEMS, OR 1 STABLE CHRONIC PROBLEM, THAT POSE(S) A LOW RISK FOR MORBIDITY/MORTALITY. The visit on the day of the encounter encompassed interpreting the data and educating the patient as to the nature of their condition, treatment options available according to their individual PMH, meds, allergies, and overall health/living conditions, as well as any potential risks or complications that may occur from a failure to adhere to, and participate in, the recommended course of therapy. The discussion included a complete verbal, and/or written explanation of the examination results, any x-rays taken, the proposed diagnosis, and outline of the treatment plan. A schedule for future care needs was also explained. The patient verbalized an understanding of the instructions at this time and agreed to be an active participant in their treatment. If the patient should think of any questions or concerns after the visit, I have encouraged the patient to call the office.?Xerosis:?The patient was counseled on the diagnosis, potential etiologies, and treatment options for their skin condition. We discussed the risks and benefits of each option from performing no treatment, to utilizing OTC topical skin creams/ointments, to utilizing prescription topical creams/ointments, to utilizing customized compounded topical medications and use of nocturnal occlusion with any/all previously detailed therapies. We discussed the advantages and disadvantages of each possible treatment and importance for adherence to all the recommended therapies for optimum success and avoid potential complications such as open sore/infection/possible hospitalization. We discussed the potential effectiveness of each topical preparation as well as each ones possible side effects and/or patient medication interactions. Patient questions re: use, dosage, successful outcomes, and application consistency were reviewed and the patient verbalized that all answers were clearly understood. The patient has decided to apply Rx skin creams to their feet save the interspaces while paying special attention to the heels. Such was sent to their pharmacy at the time of visit.? * Follow Up:?60 * Images: * Sign off status: Completed true * Provider:?Jeremy Perales D.P.M. Date:?10/12 Generated for Moira brian/Too/eTransmitting on:?10/31/2024 01:29 PM EST History and Physical Notes * HPI (History of Present Illness) Category Sub-Category Detail Notes Category Not es Skin problems Nature: dryness , scaling Location: Top, Bottom, Inside, Outside, Back, B/L Duration: several months Onset/Cause: unknown Course: worse Aggravated by: Examination Category Sub-Category Detail Notes Category Not es Neurological SENSORY: Neurological exa m reveals intact sensorium, pain sensation normal, vibration sensation intact, pinprick sensation is normal in the lower extremities, Pt denies, anesthesia, burning, paresthesia, tingling, B/L DEEP TENDON REFLEXES: Achilles, 2/4, B/L Dermatologic SKIN FINDINGS: Skin exam reveal s normal texture, elasticity, and turgor. There are no masses. The interspaces are clear , Skin shows sign(s) of, dryness, scaling, in a stocking fashion, no fissure(s) present, B/L Orthopedic MUSCLE STRENGTH: 5/5 all groups in a symm etrical fashion , B/L General Examination GENERAL APPEARANCE: Reveals a pleasant, alert, well- nourished, well-developed, well hydrated individual, who demonstrates proper attention to hygiene/body habitus, and is in no acute distress, Pt serves as own historian for office visit today ORIENTED: person, place, and t kelsey Ophthalmology Referral DIABETES EYE EXAM Procedure Perform ed:: Yes ?Date of Exam Performed: 07/30/2024 Diabetic Retinopathy Screening:: Yes Findings of Diabetic Eye Exam:: no retin opathy Vascular DP PULSES (B): 2/4, B/L PT PULSES (B): 2/4, B/L CAPILLARY FILL TIME: immediate, all digi ts, B/L TEMPERTURE GRADIENT (C): warm to cool, p roximal to distal, B/L TROPHIC CONDITION-TEXTURE/ELASTICITY/TURGOR/HAIR GROWTH (B): normal, B/L EDEMA (C): absent, B/L PIGMENTATION: normal, B/L Nails NAILS are: Elongated, overg rown, dystrophic, lytic, greater than 3mm thick, discolored and friable with crumbly malodorous subungual debris, with pain on palpation 1-5 digits B/L
--- OUTSIDE RECORDS SUMMARY | 2024-10-31 13:30 | XMS_ITS ---
Author Name [facility] Organization Unknown Results Test Name/Text Value Interpretation Date Range Source Potassium SerPl-sCnc 4.2mmol/L Normal [id number] 3.4 - 5.3 [facility] pH Ur Strip 6 Normal [id number] 5 - 8 [facility] Ketones Ur Strip-mCnc Normal [id number] - [facility] Sp Gr Ur Strip 1.004 Normal [id number] 1.003 - 1.03 [facility] Nitrite Ur Ql Strip Normal [id number] - [facility] Prot Ur Strip-mCnc Normal [id number] - [facility] Leukocyte esterase Ur Ql Strip Normal [id number] - [facility] Glucose Ur Strip-mCnc Normal [id number] - [facility] Hgb Ur Ql Strip Normal [id number] - [facility] Bilirub Ur Strip-mCnc Normal [id number] - [facility] Color Ur Normal [id number] [facility] Clarity Ur Normal [id number] [facility] Neutrophils num Bld Auto 6.36Thou/uL Normal [id number] 2 - 7.5 [facility] Monocytes num Bld Auto 0.68Thou/uL Normal [id number] 0. 2 - 1.5 [facility] Eosinophil num Bld Auto 0.11Thou/uL Normal [id number] 0 - 0.7 [facility] WBC num Bld Auto 9.6Thou/uL Normal [id number] 4 - 11 [facility] MCHC RBC Auto-mCnc 33.4g/dL Normal [id number] 30 - 36 [facility] Monocytes/leuk NFr Bld Auto 7.1% Normal [id number] [facility] Hct VFr Bld Auto 39.5% Normal [id number] 39 - 54 [facility] RBC num Bld Auto 4.09Mil/uL Below low normal [id number] 4. 5 - 6.2 [facility] RDW RBC Auto-Rto 14.3% Normal [id number] 11.5 - 14. 5 [facility] PMV Bld Auto 9.5fL Normal [id number] 7.5 - 12.[address] Eosinophil/leuk NFr Bld Auto 1.1% Normal [id number] [facility] MCH RBC Qn Auto 32.3pg Above high normal [id number] 27 - 31 [facility] Basophils/leuk NFr Bld Auto 0.5% Normal [id number] [facility] Basophils num Bld Auto 0.05Thou/uL Normal [id number] 0 - 0.2 [facility] Platelet num Bld Auto Normal [id number] 150 - 450 [facility] Neutrophils/leuk NFr Bld Auto 66.6% Normal [id number] [facility] Immature Platelet Fraction 4% Normal [id number] 1.2 - 8.6 [facility] MCV RBC Auto 97fL Normal [id number] 80 - 100 [facility] T Lymphocytes/leuk NFr Bld Auto 24.2% Normal [id number] [facility] Lymphocytes num Bld Auto 2.32Thou/uL Normal [id number] 1.5 - 4.5 [facility] Imm Granulocytes/leuk NFr Bld Auto 0.5% Normal [id number] [facility] Hgb Bld-mCnc 13.2g/dL Normal [id number] 13 - 17.7 [facility] T Imm Granulocytes num Bld Auto 0.05Thou/uL Normal [id number] 0 - 0.1 [facility] CK SerPl-cCnc 170U/L Normal [id number] 24 - [address] Lipase SerPl-cCnc 77U/L Above high normal [id number] 1 3 - 60 [facility] Magnesium SerPl-mCnc 1.7mg/dL Normal [id number] 1.6 - 2.7 [facility] AST SerPl-cCnc Normal [id number] 10 - 55 [facility] ALT SerPl-cCnc Normal [id number] 10 - 55 [facility] Creat SerPl-mCnc 0.9mg/dL Normal [id number] 0.5 - 1.3 [facility] Globulin Ser Calc-mCnc 3.3g/dL Normal [id number] 1.5 - 3.9 [facility] CO2 SerPl-sCnc 18mmol/L Below low normal [id number] 22 - 33 [facility] Albumin/Glob SerPl 1.3Ratio Normal [id number] [facility] Anion Gap Bld-sCnc 16 Normal [id number] 7 - 17 [facility] Potassium SerPl-sCnc Normal [id number] 3.4 - 5.3 [facility] Bilirub SerPl-mCnc 0.3mg/dL Normal [id number] 0.2 - 1 [facility] Calcium SerPl-mCnc 9.1mg/dL Normal [id number] 8.7 - 10 .5 [facility] BUN SerPl-mCnc 14mg/dL Normal [id number] 8 - 21 [facility] CCT ALP SerPl-cCnc 100U/L Normal [id number] 45 - 128 [facility] GFR/BSA.pred SerPlBld GWN-OTG-NaVIvh 90 Normal [id number] 59 - [facility] Chloride SerPl-sCnc 97mmol/L Below low normal [id number] 98 - 107 [facility] BUN/Creat SerPl 16Ratio Normal [id number] 10 - 25 [facility] Albumin SerPl-mCnc 4.2g/dL Normal [id number] 3.4 - 4. 8 [facility] Prot SerPl-mCnc 7.5g/dL Normal [id number] 6.3 - 8.3 [facility] Glucose SerPl-mCnc 86mg/dL Normal [id number] 65 - 99 [facility] Sodium SerPl-sCnc 131mmol/L Below low normal [id number] 13 6 - 145 [facility]
--- OUTSIDE RECORDS SUMMARY | 2024-10-31 13:30 | XMS_ITS | Patient Health Record ---
[facility] Organization [facility] Address [address] [place] [address] Care Team Providers Care Pier Hand Helper Name Role Phone Imelda SELLERS, Marcin Primary Care Provider UnavailJeremy Fraser Unavailable [phone] Allergies No Known Allergies Results Component Value Reference Range Notes HEMOGLOBIN A1C (GLYCOHEMOGLO BIN) Reviewed date:10/28/2024 10:44:32 AM Interpretation: Performing Lab: Notes/Report: TOTAL HEMOGLOBIN (HGBA1C) 6.5 Reason For Referral No Information Medications Medication SIG (Take, Route, Frequency, Duration) Notes Start Date End Date Status Isosorbide Mononitrate ER 30 MG TAKE 1 TABLET BY MOUTH EVERY DAY Oral for 90 Days Active Ammonium Lactate 12 % 1 application Externally to affected areas of dry skin to feet except for between the toes Twice a day for 30 days Active Atenolol 50 MG Oral for 90 Days Active Atenolol 50 MG TAKE 1 TABLET BY SHONA TH EVERY DAY Oral for 90 Days Active Atorvastatin Calcium 10 MG TAKE 1 TABLET BY MOUTH EVERY DAY Oral for 90 Days Active Atorvastatin Calcium 10 MG Oral for 90 Days Active buPROPion HCl [...] 500 MG Oral for 90 Days Active Isosorbide Mononitrate ER 30 MG Oral for 90 Days Active Aspirin Low Dose 81 MG TAKE 1 TABLET BY MOUTH EVERY DAY Oral for 90 Days Active Gabapentin 600 MG Oral for 90 Days Active Gabapentin 600 MG TAKE 1 TABLET BY SHONA TH THREE TIMES A DAY Oral for 90 Days Active Latanoprost 0.005 % INSTILL 1 DROP INTO BOTH EYES EVERY NIGHT DIRECTED Ophthalmic for 90 Days Active Baclofen 5 MG TAKE 1-2 TABS ORALLY BEDTIME FOR 30 DAYS Oral for 30 Days Active Tobramycin-dexAMETHasone 0.3-0.1 % Ophthalmic for 14 Days Activ e Latanoprost 0.005 % Ophthalmic for 90 Days Active Dorzolamide HCl-Timolol Mal 2-0.5 % INSTILL 1 DROP INTO BOTH EYES TWICE A DAY DIRECTED Ophthalmic for 50 Days Active Memantine HCl 10 MG TAKE 1 TABLET BY SHONA TH TWICE A DAY Oral for 90 Days Active Tobramycin-dexAMETHasone 0.3-0.1 % APPLY 4 DROPS INTO THE AFFECTED EAR TWICE A DAY X 14 DAYS Ophthalmic for 14 Days Active Ketoconazole 2 % External for 30 Days Not-Taking PARoxetine HCl 30 MG TAKE 2 TABLETS BY M OUTH EVERY MORNING FOR 180 DAYS. Oral for 90 Days Active Furosemide 20 MG TAKE 1 TABLET BY SHONA TH EVERY OTHER DAY Oral for 90 Days Active Dorzolamide HCl-Timolol Mal 2-0.5 % Ophthalmic for 50 Days Activ e Memantine HCl 10 MG Oral for 90 Days Active Rytary 48.75-195 MG TAKE 2 CAPS ORALLY TWICE A DAY DIVIDE EVENLY OVER WAKING HOURS Oral for 30 Days Active PARoxetine HCl 30 MG Oral for 90 Days Active Baclofen 5 MG Oral for 30 Days Active Furosemide 20 MG Oral for 90 Days Active Rytary 48.75-195 MG Oral for 30 Days Active Social History Tobacco Use: Social [...] points) Points 6 Interpretation Positive Vital Signs Blood pressure diastolic 80 mm Hg 10/28/2024 Height 6ft in 10/28/2024 Blood pressure systolic 134 mm Hg 10/28/2024 Weight 270 lbs 10/28/2024 BMI 36.61 kg/m2 10/28/2024 Procedures Procedure Date Ordered Date Performed Result Body Sit e 29285-[id number] NAIL, 6 OR MORE 10/28/2024 N/A Encounters Encounter Location Date Provider Diagnosis [facility] [address] [place] [address] 10/28/2024 Jeremy Perales Xerosis of skin L85. [...] toe(s) (ICD-10 - M79.675) Plan Of Treatment Pending Test Test Name Order Date [id number] NAIL, 6 OR MORE 10/28/2024 Next Appt Details Provider Name:Jeremy Borden Diaz, 01/13/2025 10:15:00 AM, [address], [place], [address], Insurance Providers Payer Name Payer Address Payer Phone Subscriber Number Group Number Insured Name Patient Relationship to Insured Coverage Start Date Coverage End Date [facility] [address] [place] [address] [id number] Jose Aguilar Self - patient is the insured Medical (General) History Medical History History ICD Code Alzheimers disease Angina Anxiety Arthritis Back,Hip,and Knee pain Broken bones CAD (Cholesterol) skin cancer covid-19 Dementia Depression type II diabetes Gout Headaches/Migraines Heart disease Hiatal hernia High Blood Pressure Parkinsons disease Poor circulation Warts Stroke Measles Mumps Chicken pox Joint implants/screws Surgical History Surgery Date(Month/Year) cochlear implant 2012 Carpel Tunnel Revision 2012 knee, meniscus 2009 left knee replacement 2019 varicose vein stripping 2017 mastoidectomy 1978
[2024-10-31 13:40] VITALS: BMI 37.7
--- NOTE | 2024-10-31 13:40 | A.OFFVIS_ITS ---
Vital Signs 10/31/24 13:40 Height 5 ft 11 in Weight 270 lb BMI 37.7 Intake Visit Reasons: 6 month F/U Intake Note: Patient presents for 6 month follow up Allergies No Known Allergies Allergy (Verified 10/31/24 13:46) Medication List - Last Reconciled 10/31/24 by ARIN Ghotra aspirin 81 mg PO DAILY 30 days atenolol 50 mg PO DAILY atorvastatin 10 mg PO DAILY baclofen 5 - 10 mg (1 - 2 x 5 mg) PO BEDTIME 90 days bupropion HCl 100 mg PO TID carbidopa-levodopa 48.75-195 mg ER (Rytary) 2 caps orally BID; divide evenly over waking hours 30 days clonazepam 0.5 mg PO BEDTIME 30 days dorzolamide-timolol 22.3-6.8 mg/mL ophthalmic (eye) dulaglutide (Trulicity) 1.5 mg subcut QWEEK furosemide mg PO gabapentin 600 mg PO TID glimepiride 4 mg PO DAILY isosorbide dinitrate 30 mg PO DAILY memantine 10 mg PO BID 30 days metformin ER 1,000 mg PO BID multivitamin (Daily Multi-Vitamin tablet) 1 tab PO DAILY paroxetine HCl 60 mg PO DAILY pramipexole ER 0.375 mg PO BEDTIME 30 days quetiapine 50 mg PO BEDTIME HPI Comments Details: 74-yr-old male presents for f/u visit for Parkinson's. Patient's was unable to make it to today's appointment, however she did send a list of questions and concerns, including concerns regarding mood liability, cognitive functioning, gait difficulties. Pt reports he is feeling ok. ADL's: Needing help with getting dressed Swallowing: No issues Cough: Denies Drooling: Denies Orthostatic lightheadedness: Only if he stands up too quickly- but he is trying to get up slower. Or can feel spinning dizzines/off-balance if he turns quickly. Constipation: At times, self-resolves Urinary symptoms: Denies Tremor: His states he is shaking more Dyskinesia: Denies Stiffness: Generally stiff. Has lower back pain. Gait changes: Sometimes the foot drags, then he jsut stops until it passes- usually < 1 min. Freezing: The dragging foot Falls: He had a fall over the [place]- fell in the bathroom- between the wall and toilet and needed 3 people to help him out. Mood: Mood can be variable- can quickly go from being in a good mood to a bad mood. Hallucinations: Yes- more prominent. Sometimes he thinks he sees people in the house, or sees his dog who in April. Memory: Today it is not to bad. Other times, he forgets conversations. notes, he is spacing out. Sleep: Not sleeping as well. Sleeping 2-3 hrs at night. Takes a 1-2 hr nap at times, or may sleep the entire afternoon away. Not using his CPAP. Exercise: Not much He is taking: Rytary 3 caps bid- as he was not good at taking 2 caps tid consistently. Pramipexole- 0.125mg 2 tabs qhs.? PFSH Medical History Parkinson's disease Status post placement of bone anchored hearing aid (BAHA) Open dislocation of right thumb Diabetes mellitus Osteoporosis Hyperlipidemia HTN (hypertension) Surgical History No pertinent past surgical history Family History Mother Diabetes Cancer Family/Other Thyroid cancer Social History Household Members: Spouse Housing: House Alcohol intake: current Alcohol intake frequency: a few times a week Patient Tobacco Use Status: Current everyday Tobacco user Physical Exam Vital Signs: BMI result Body Mass Index 37.7 Const General: cooperative and no acute distress Resp Effort & Inspection: normal respiratory effort and able to speak in complete sentences Neuro Other: General: A&O. Responding appropriately. Mild STM lapses- more so with medications, healthcare specific information. Chronic left facial asymmetry Mild [place] LUE rest and postural tremor BUE bradkinesia- L > R BLE bradykinesia- L > R LUE tone Slow to stand, stooped, short steps w/ RLE slight outturn, steady gait w/ walker. Assessment & Plan Assessment & Plan (1) Parkinson's disease without dyskinesia: Code(s): G20.A1 - Parkinson's disease without dyskinesia, without mention of fluctuations Category: Medical (2) REM sleep behavior disorder: Code(s): G47.52 - REM sleep behavior disorder Category: Medical (3) Restless leg syndrome: Code(s): G25.81 - Restless legs syndrome Category: Medical (4) Dementia: Code(s): F03.90 - Unspecified dementia, unspecified severity, without behavioral disturbance, psychotic disturbance, mood disturbance, and anxiety Category: Medical Plan Try to increase Rytary 48.75-196mg from 2 caps bid to 2 caps t.i.d.. Continue Pramipexole ER 0.375mg qhs- in hopes this improves on time- and thus reduces freezing episodes. Monitor for tremor, freezing epsiodes, hallucinations. Continue Memantine 10mg bid Continue Gabapentin up to 1200mg qhs- for RLS/PLMS. Continue Baclofen 5-10mg prn- for low back pain. Resume Clonazepam 0.5mg qhs- prn for REM sleep behaviors. Continue Wellbutrin, Paxil- now managed by PCP.? Increase physical activity Will request psychiatry consult to help optimize mood and sleep symptoms. Patient is not interested in resuming CPAP therapy. Previous trials: Pramipexole IR, not fully effective. Future considerations: VYALEV (foscarbidopa/foslevodopa)- once it is available more widely, as this would provide 247 administration of levodopa which has historically been challenging for this patient to consistently take levodopa throughout the day. Previous trials: Neupro patch- d/t skin irritation. ? f/u in 6 months or sooner prn. Orders: Referrals Psychiatry Outpatient Consultation Service F03.90 - Unspecified dementia, unspecified severity, without behavioral disturbance, psychotic disturbance, mood disturbance, and anxiety, F39 - Unspecified mood [affective] disorder, G20.A1 - Parkinson's disease without dyskinesia, without mention of fluctuations Medications: Changed From carbidopa-levodopa 48.75-195 mg ER (Rytary) 2 caps orally BID; divide evenly over waking hours 30 days 120 caps 6RF To carbidopa-levodopa 48.75-195 mg ER (Rytary) 2 caps PO TID 30 days 180 caps 6RF Refilled baclofen 5 - 10 mg (1 - 2 x 5 mg) PO BEDTIME 90 days 180 tabs 1RF memantine 10 mg PO BID 30 days 60 tabs 6RF carbidopa-levodopa 48.75-195 mg ER (Rytary) 2 caps orally BID; divide evenly over waking hours 30 days 120 caps 6RF clonazepam administer 30 minutes before bedtime 0.5 mg PO BEDTIME 30 days 30 tabs 1RF pramipexole ER 0.375 mg PO BEDTIME 30 days 30 tabs 6RF Coding Level of Care Code Est Pt Level 4 (78755) Complex EM visit Add On G2211 Diagnoses Parkinson's disease without dyskinesia G20.A1 REM sleep behavior disorder G47.52 Restless leg syndrome G25.81 Dementia F03.90
== END 2024-10-31 14:43 | disposition home or self-care (01) ==
PROVIDERS: PCP Internal Medicine; Visit Provider Nurse Practitioner Family
DX: G20.A1 Parkinson's disease without dyskinesia, without mention of fluctuations (principal); G47.52 REM sleep behavior disorder; G25.81 Restless legs syndrome; F03.90 Unspecified dementia, unspecified severity, without behavioral disturbance, psychotic disturbance, mood disturbance, and anxiety
CPT/HCPCS: 99214; G2211

== ENCOUNTER → 2024-10-31 13:27 | Outpatient (BNVA) | payer MEDICARE, SELFPAY | PROVIDERS: PCP Internal Medicine; Visit Provider Nurse Practitioner Family | DX: G20.A1 Parkinson's disease without dyskinesia, without mention of fluctuations (principal); G47.52 REM sleep behavior disorder; G25.81 Restless legs syndrome; F03.90 Unspecified dementia, unspecified severity, without behavioral disturbance, psychotic disturbance, mood disturbance, and anxiety; F39 Unspecified mood [affective] disorder | CPT/HCPCS: 99212 ==

== ENCOUNTER 2025-05-04 10:51 | Outpatient (AMB) | payer MEDICARE, SELFPAY ==
[2025-05-04 11:06] VITALS: BP 138/74; PULSE 88; O2SAT 95; BMI 38.5
--- NOTE | 2025-05-04 11:06 | A.OFFVIS_ITS ---
Vital Signs 05/04/25 11:06 Height 5 ft 11 in Weight 276 lb BMI 38.5 BP 138/74 Blood Pressure Location Lt brachial Position Sitting Pulse 88 Pulse Source Pulse Oximeter Pulse Oximetry (%) 95 Oxygen Delivery Method Room Air Intake Visit Reasons: 6 month F/U Systems Technician Required: No Accompanied by: Self / Same As Patient Allergies No Known Allergies Allergy (Verified 05/04/25 11:07) Medication List - Last Reconciled 05/04/25 by ARIN Ghotra aspirin 81 mg PO DAILY 30 days atenolol 50 mg PO DAILY atorvastatin 10 mg PO DAILY baclofen 5 - 10 mg (1 - 2 x 5 mg) PO BEDTIME 90 days bupropion HCl 100 mg PO TID carbidopa-levodopa 48.75-195 mg ER (Rytary) 2 caps PO TID 30 days clonazepam 0.5 mg PO BEDTIME 30 days dorzolamide-timolol 22.3-6.8 mg/mL ophthalmic (eye) dulaglutide (Trulicity) 1.5 mg subcut QWEEK furosemide mg PO gabapentin 600 mg PO TID glimepiride 4 mg PO DAILY isosorbide dinitrate 30 mg PO DAILY memantine 10 mg PO BID 30 days metformin ER 1,000 mg PO BID multivitamin (Daily Multi-Vitamin tablet) 1 tab PO DAILY paroxetine HCl 60 mg PO DAILY pramipexole ER 0.375 mg PO BEDTIME 30 days quetiapine 50 mg PO BEDTIME HPI Comments Details: History of Present Illness The patient is a 75-year-old male presenting with Parkinson's disease, REM sleep behavior disorder, restless legs syndrome, and dementia. Patient presents by himself, as his was recently released from the hospital due to a severe GI illness. Parkinson's disease has been a longstanding condition, with symptoms including balance issues and foot dragging, now affecting both feet and occurring once or twice a day. The patient reports a slow progression of symptoms over time, with occasional exacerbations. Patient is not able to clearly recount his current medication regimen, however he states he did not adjust the Rytary from twice a day to 3 times a day-he states he believes his is giving him the total dose just broken up over a twice a day frequency. For REM sleep behavior disorder, the patient is on clonazepam 0.5 mg at bedtime, which has been effective in managing symptoms. The patient denies any recent sleep talking or walking episodes. Restless legs syndrome is managed with pramipexole ER 0.37 mg daily at bedtime. Dementia symptoms include memory issues, with the patient sometimes forgetting recent conversations or events. The patient is currently taking memantine 10 mg twice a day to manage cognitive symptoms. The patient experiences low back pain, which can be severe at times, almost leading to an emergency room visit. The pain is managed with gabapentin and baclofen 5 to 10 mg as needed. The patient reports constipation, likely due to the extensive medication regimen, but does not currently take any specific treatment for it. Hallucinations are present, with the patient seeing animals and people, but these are not distressing. Medications - Rytari (extended-release carbidopa-levodopa): For Parkinson's disease - Pramipexole ER 0.37 mg daily at bedtime: For restless legs syndrome - Memantine 10 mg twice a day: For dementia - Gabapentin: For low back pain - Baclofen 5 to 10 mg as needed: For low back pain - Clonazepam 0.5 mg daily at bedtime: For REM sleep behavior disorder Activities of daily living (ADL's): Independent Instrumental activities of daily living (IADL's): manage his medications. Patient no longer drives Swallowing difficulty: Denies Cough: Denies Drooling: Denies Orthostatic lightheadedness: Reports slight lightheadedness when standing up Constipation: Reports occasional constipation Urinary symptoms: Denies Tremor: Mild, not too bad today Dyskinesia: None Stiffness: Denies significant stiffness, reports age-related stiffness. Recently his low back was so sore, he could barely walk. He treated this with half of a ?got me?, which was very effective Musculoskeletal symptoms: Reports low back pain Gait difficulties or changes: Reports balance issues and foot dragging once or twice a day Freezing episodes of gait: Likely the foot dragging symptoms are bouts or freezing Falls: Denies Mood difficulties or changes: Denies Hallucinations: Reports seeing animals and people, not scary, better when camping Memory difficulties or changes: Reports increased forgetfulness Sleep difficulties: Reports broken sleep, averaging 6 hours. He is not interested in retrying CPAP Exercise routine: Limited, more active during summer at [employer] Socialization and cognitive activities: [place] good social support, increased socialization what camp during the summer. Social History - Family Status: The patient is supported by his family, including his and children, who assist with transportation and care. - Exercise: The patient reports limited exercise during the winter but engages in more physical activity during the summer at the [facility]. - Weight Management: The patient has lost almost 30 pounds, attributed to taking a non-prescription weight management pill called Golo. Review of Systems - Neurological: Reports balance issues and foot dragging; denies sleep talking or walking; reports hallucinations of animals and people; reports memory issues. - Musculoskeletal: Reports severe low back pain; denies stiffness except age- related stiffness. - Gastrointestinal: Reports constipation, likely due to medication regimen. - General: Reports weight loss of almost 30 pounds. [facility] Medical History Parkinson's disease Status post placement of bone anchored hearing aid (BAHA) Open dislocation of right thumb Diabetes mellitus Osteoporosis Hyperlipidemia HTN (hypertension) Surgical History No pertinent past surgical history Family History Mother Diabetes Cancer Family/Other Thyroid cancer Social History Household Members: Spouse Housing: House Alcohol intake: current Alcohol intake frequency: a few times a week Patient Tobacco Use Status: Current everyday Tobacco user Physical Exam Vital Signs: Last Vital Signs Pulse 88 05/04/25 11:06 BP 138/74 05/04/25 11:06 Pulse Ox 95 05/04/25 11:06 Oxygen Delivery Method Room Air 05/04/25 11:06 BMI result Body Mass Index 38.5 Const General: cooperative and no acute distress Resp Effort & Inspection: normal respiratory effort and able to speak in complete sentences Neuro Other: General: A&O. Responding appropriately. Mild STM lapses- more so with medications, healthcare specific information. Chronic left facial asymmetry Mild [place] LUE rest and postural tremor BUE bradkinesia- L > R BLE bradykinesia- L > R- no more difficulty lifting right leg compared to left LUE tone Slow to stand, stooped, short steps w/ RLE slight outturn, steady gait w/ walker. Deep tendon reflexes (DTR's): Right patellar reflex intensity grade: 1+ and Left patellar reflex intensity grade: 1+ Assessment & Plan Assessment & Plan (1) Parkinson's disease without dyskinesia: Code(s): G20.A1 - Parkinson's disease without dyskinesia, without mention of fluctuations Category: Medical (2) REM sleep behavior disorder: Code(s): G47.52 - REM sleep behavior disorder Category: Medical (3) Restless leg syndrome: Code(s): G25.81 - Restless legs syndrome Category: Medical (4) Dementia: Code(s): F03.90 - Unspecified dementia, unspecified severity, without behavioral disturba nce, psychotic disturbance, mood disturbance, and anxiety Category: Medical Qualifiers: Dementia type: unspecified type Plan Discussion Notes During the visit, we discussed the management of Parkinson's disease, including the potential use of new medications such as Vyalev and Onopago, which are infusion treatments that could provide a more consistent delivery of carbidopa- levodopa. He is open to reviewing and discussing Vyalev and Onopago was his family, information packet given to patient-he will update us if you would like to proceed with either these. We also talked about the importance of maintaining a regular medication schedule to manage symptoms effectively and the potential benefits of physical therapy or pain management for low back pain. The patient was advised to consider family support for medication management and to explore options for improving sleep quality, such as using a CPAP or considering surgical options like Inspire for sleep apnea. In regards to his memory, dsiscussed potential for Alzheimer's prevention medications in future visits, pending further testing and evaluation.However, patient would like to hold on any new referrals, as his is currently recovering from the GI illness. Patient was informed and verbally consented to the use of an ambient scribe for clinic note documentation during this visit. Continue Rytary 48.75-195mg- with goal of taking 2 caps t.i.d.. Continue Pramipexole ER 0.375mg daily at bedtime Monitor for tremor, freezing epsiodes, hallucinations. Continue Memantine 10mg bid Continue Gabapentin- for RLS/PLMS. Continue Baclofen 5-10mg prn- for low back pain. Continue Clonazepam 0.5mg qhs- prn for REM sleep behaviors. Continue Wellbutrin, Paxil- now managed by PCP.? Encouraged to increase physical activity Previously requested psychiatry consult to help optimize mood and sleep symptoms. Patient is not interested in resuming CPAP therapy. Previous trials: Pramipexole IR, not fully effective. Neupro patch- d/t skin irritation. Donepezil cause agitation. Future considerations: Discuss potential for Alzheimer's prevention medications in future visits, pending further testing and evaluation. ? f/u in 6 months or sooner prn. Medications: Changed From carbidopa-levodopa 48.75-195 mg ER (Rytary) 2 caps PO TID 30 days 180 caps 6RF To carbidopa-levodopa 48.75-195 mg ER (Rytary) 2 caps PO TID 540 caps 6RF 90 days From memantine 10 mg PO BID 30 days 60 tabs 6RF To memantine 10 mg PO BID 180 tabs 3RF 90 days From pramipexole ER 0.375 mg PO BEDTIME 30 days 30 tabs 6RF To pramipexole ER 0.375 mg PO BEDTIME 90 tabs 1RF 90 days Refilled clonazepam administer 30 minutes before bedtime 0.5 mg PO BEDTIME 30 tabs 3RF 30 days Coding Level of Care Code Est Pt Level 4 (37930) Complex EM visit Add On G2211 Diagnoses Parkinson's disease without dyskinesia G20.A1 REM sleep behavior disorder G47.52 Restless leg syndrome G25.81 Dementia F03.90 Dementia type: unspecified type
--- OUTSIDE RECORDS SUMMARY | 2025-05-04 12:17 | XMS_ITS | Clinical Summary ---
Author Organization [facility] [address] [facility] Address [address] [place] [address] Phone Care Team Providers Care Building Energy Consultant Name Role Phone Marcin Segura MD Primary Care Provider [phone] Allergies No known active allergies Medications FREESTYLE LANCETS MISC Upto three times a day 12/11/19 23 Active blood sugar diagnostic (FreeStyle Lite Strips) test strip USE 1 STRIP BY IN VITRO ROUTE 4 TIMES A DAY 07/02/20 23 Active blood-glucose meter kit Check up to three times a day 12/11/19 23 Active multivit-min/fe rrous fumarate (MULTI VITAMIN ORAL) one tablet daily Active aspirin 81 mg chewable tablet 1 TABLET DAILY Active atorvastatin (LIPITOR) 10 mg tablet Take 1 tablet (10 mg total) by mouth 1 (one) time each day. 04/23/20 24 Active latanoprost (XALATAN) 0.005 % ophthalmic solution 1 Drop at bedtime. Active memantine (NAMENDA XR) 28 mg extended release capsule Take by mouth daily (with breakfast). Active nystatin (MYCOSTATIN) cream Apply to area twice a day 02/18/20 22 Active pramipexole (MIRAPEX) 0.125 mg tablet Take 2 Tabs by mouth at bedtime. Active timolol (TIMOPTIC) 0.5 % ophthalmic solution 1 Drop every morning. Active tobramycin-dexA METHasone (TOBRADEX) ophthalmic suspension 4 Drops 2 times daily. 08/30/20 20 Active gabapentin (NEURONTIN) 600 mg tablet TAKE 1 TABLET BY MOUTH THREE TIMES A DAY 270 tablet 1 03/03/20 25 Active fluticasone propionate (FLONASE) 50 mcg/actuation nasal spray Administer 2 sprays into each nostril 1 (one) time each day. Shake gently. Before first use, prime pump. After use, clean tip and replace cap. 16 g 5 03/03/20 25 026 Active PARoxetine (PAXIL) 30 mg tabletIndicatio ns:Type 2 diabetes mellitus with other diabetic neurological complication (CMS/HCC V24, CMS/HCC V28) TAKE 2 TABLETS BY MOUTH EVERY MORNING FOR 180 DAYS. 180 tablet 1 03/20/20 25 Active buPROPion SR (WELLBUTRIN SR) 200 mg 12 hr tabletIndicatio ns:Adjustment disorder with mixed anxiety and depressed mood TAKE 1 TABLET BY MOUTH EVERY DAY WITH BREAKFAST 90 tablet 1 04/09/20 25 Active isosorbide mononitrate (IMDUR) 30 mg 24 hr tabletIndicatio ns:Essential (primary) hypertension,Hy perlipidemia, unspecified TAKE 1 TABLET BY MOUTH EVERY DAY 90 tablet 1 04/09/20 25 Active atenoloL (TENORMIN) 50 mg tablet TAKE 1 TABLET BY MOUTH EVERY DAY 90 tablet 1 04/09/20 25 Active furosemide (LASIX) 20 mg tablet TAKE 1 TABLET BY MOUTH EVERY OTHER DAY 45 tablet 1 04/20/20 25 Active metFORMIN XR (GLUCOPHAGE-XR) 500 mg 24 hr tablet Take 2 tablets (1,000 mg total) by mouth 2 (two) times a day with meals. 360 tablet 1 04/20/20 25 Active isosorbide mononitrate (IMDUR) 30 mg 24 hr tabletIndicatio ns:Essential (primary) hypertension,Hy perlipidemia, unspecified TAKE 1 TABLET BY MOUTH EVERY DAY 90 tablet 01/13/20 25 025 Discontinued buPROPion SR (WELLBUTRIN SR) 200 mg 12 hr tabletIndicatio ns:Adjustment disorder with mixed anxiety and depressed mood TAKE 1 TABLET BY MOUTH EVERY DAY WITH BREAKFAST 90 tablet 01/13/20 25 025 Discontinued atenoloL (TENORMIN) 50 mg tablet TAKE 1 TABLET BY MOUTH 1 TIME EACH DAY. 90 tablet 01/13/20 25 025 Discontinued furosemide (LASIX) 20 mg tablet TAKE 1 TABLET BY MOUTH EVERY OTHER DAY 45 tablet 01/17/20 25 025 Discontinued metFORMIN XR (GLUCOPHAGE-XR) 500 mg 24 hr tablet TAKE 2 TABLETS BY MOUTH TWICE A DAY WITH MEALS 360 tablet 01/20/20 025 Discontinued(R eorder) Active Problems Problem Noted Date Diagnosed Date Alzheimer's dementia ([facility] V24, [facility] V28) 10/14/2024 Overview (10/14/2024): Dr. Morotn, evaluation January 27 Parkinson's disease ([facility] V24, [facility] V28) 1 12/15/2023 Overview (10/14/2024): Dr. Morton, evaluation January 27 Lab test negative for COVID-19 virus 04/29/2021 Episode of recurrent major d epressive disorder ([facility] V24) 09/02/2019 Severe obesity (BMI 35.0-39. 9) with comorbidity ([facility] V24, [facility] V28) 07/29/2019 Osteoarthritis of left knee 08/21/2018 Primary osteoarthritis of right knee 08/21/2018 Adjustment disorder with mixed anxiety and depre ssed mood 07/10/2017 Parotid gland enlargement 08/10/2016 Vitamin B12 deficiency 10/05/2015 DM (diabetes mellitus), type 2 with peripheral vascular complications ([facility] V24, [facility] V28) 06/29/2015 Overview (10/14/2024): Erectile dysfunction 09/27/09 notes Cataract 06/29/2015 Overview (10/14/2024): Bilaterally, 05/06/2018 [facility] Type 2 diabetes mellitus wit h cataract ([facility] V24, [facility] V28) 06/29/2015 Diabetes mellitus type 2 wit h neurological manifestations ([facility] V24, [facility] V28) 02/03/2014 Cord compression ([facility] V24, [facility] V28) 07/2011 Spinal stenosis in cervical region 12/16/2010 Overview (10/14/2024): Cervical radiculitis Carpal tunnel syndrome 12/02/2010 Fatty liver 11/28/2010 ED (erectile dysfunction) 09/27/2009 Alcohol abuse 09/08/2009 Obesity 09/08/2009 Dyspnea 07/28/2009 KENDALL (obstructive sleep apnea) 05/20/2009 Known medical problems 05/28/2006 Overview (10/14/2024): stable as of 01/16; rpt CT 1 year Tobacco use disorder 05/28/2006 Hypertension 02/16/2006 Hyperlipidemia 02/16/2006 Encounters Date Type Department Care Team Description 03/03/2025 11:00 AM EDT Office Visit Internal Medicine - [address] [phone] Marcin Segura MD Diabetes mellitus type 2 with neurological manifestations ([facility] V24, [facility] V28) (Primary Dx); Urinary hesitancy; Encounter for screening for malignant neoplasm of prostate; Primary hypertension 02/27/2025 9:30 AM EDT Telemedicine Internal Medicine - [address] [address] Encounter for subsequent annual wellness visit (AWV) in Medicare patient (Primary Dx) 02/25/2025 Telephone Internal Medicine - [address] [address] Swathi Neely [place] Medicare Annual Wellness Visit Subsequent (AWV DUE 2024) 02/18/2025 Telephone Internal Medicine - [address] [phone] Marcin Segura MD Medication Problem (HNE) from Last 3 Months Immunizations Name Administration Dates Next Due Influenza Quadravalent, MDCK , 0.5ml, with preservative (Flucelvax) 6mo and older 09/10/2017 Influenza trivalent, 0.5mL ( Fluad) 65yo and older 08/29/2023,09/26/2022,10/28/2021,09/20,09/23/2019,09/23/2018,09/07/2014 ,07/28/2009 Influenza trivalent, with pr eservative (Fluzone; Afluria) 6mo and older 08/10/2016 Pneumococcal conjugate 13 va lent (Prevnar 13, PCV13) 2mo and older 09/20/2020 Pneumococcal polysaccharide 23 valent (Pneumovax 23) 2yo and older 01/09/2018 Tdap Tetanus diptheria acell ular pertussis (Boostrix; Adacel) 7yo and older 11/21/2016 Surgical History Surgery Date Site/Laterality Comments OTHER SURGICAL HISTORY 09/12/2006 PROCEDURE: PSA, TOTAL SCREENING; COMMENT: 0.5 COLONOSCOPY 11/12/2006 PROCEDURE: [place] COLONOSCOPY STOMA DX INCLUDING COLLJ SPEC SPX; COMMENT: Pleet; TA; rpt 4 yr COLONOSCOPY W/ BIOPSIES 04/28/2011 PROCEDURE: [place] COLONOSCOPY W/BIOPSY SINGLE/MULTIPLE; COMMENT: Pleet; one small polyp. repeat 5 yrs. OTHER SURGICAL HISTORY PROCEDURE: [place] ARTHRD ANT INTERBODY MIN DSC CRV BELOW C2 OTHER SURGICAL HISTORY PROCEDURE: [place] ARTH[facility] CARPO/METACARPAL JT THUMB W/WO INT FIXJ TOTAL KNEE ARTHROPLASTY PROCEDURE: [place] ARTHRP KNE CONDYLE&PLATU MEDIAL&LAT COMPARTMENTS Medical History Medical History Date Comments Swelling, mass, or lump in chest 05/28/2006 DX:Swelling, mass, or lump in chest Parkinson's disease ([facility] V24, [facility] V28) 2015 DX:Parkinson's disease (HCC) ; COMMENT: Dr. Morton, evaluation January 27 Alzheimer's dementia ([facility] V24, [facility] V28) 2015 DX:Alzheimer's dementia (HCC ); COMMENT: Dr. Morton, evaluation January 27 Hyperlipidemia 02/16/2006 DX:Hyperlipidemi a Diabetes mellitus type 2 wit h neurological manifestations ([facility] V24, [facility] V28) 02/03/2014 DX:Diabetes mellitus type 2 with neurological manifestations (HCC) KENDALL (obstructive sleep apnea) 05/20/2009 DX :KENDALL (obstructive sleep apnea) Type 2 diabetes mellitus wit h cataract ([facility] V24, [facility] V28) 06/29/2015 DX:Type 2 diabetes mellitus with cataract (HCC) DM (diabetes mellitus), type 2 with peripheral vascular complications ([facility] V24, [facility] V28) 06/29/2015 DX:DM (diabetes mellitus), type 2 with peripheral vascular complications (HCC); COMMENT: Erectile dysfunction 09/27/09 notes Cataract 06/29/2015 DX:Cataract; COM MENT: Bilaterally, 05/06/2018 [facility] Adjustment disorder with mix ed anxiety and depressed mood 07/10/2017 DX:Adjustment disorder with mixed anxiety and depressed mood Alcohol abuse 09/08/2009 DX:Alcohol abuse Carpal tunnel syndrome 12/02/2010 DX:Carpal tunnel syndrome Cord compression (CMS/HCC V2 4, CMS/HCC V28) 01/18/2011 DX:Cord compression (HCC) ED (erectile dysfunction) 09/27/2009 DX:ED (erectile dysfunction) Fatty liver 11/28/2010 DX:Fatty liver Essential hypertension, benign 02/16/2006 D X:Essential hypertension, benign Obesity 09/08/2009 DX:Obesity Parotid gland enlargement 08/10/2016 DX:Par otid gland enlargement Tobacco use disorder 05/28/2006 DX:Tobacco use disorder Vitamin B12 deficiency 10/05/2015 DX:Vitami n B12 deficiency Anxiety state DX:Anxiety state Glaucoma Family History Medical History Relation Name Comments Diabetes Brother Migraines Daughter asthma Cerebral aneurysm Father Coronary artery disease Maternal Grandfather Diabetes Mother Other: lymphnode Mother cancer Lymp hnode Leukemia Sister 1 brain cancer No Known Problems Sister 2 Migraines Son 2 Migraines Son 3 Relation Name Status Comments Brother Daughter Alive Father Maternal Grandfather Alive Mother Sister 1 Sister 2 Alive Son 1 Alive Son 2 Alive Son 3 Alive Social History Tobacco Use Types Packs/Day Years Used Date Smoking Tobacco: Every Day Cigarettes Smokeless Tobacco: Never Tobacco Cessation:Ready to Q uit: Not Asked; Counseling Given: Not Answered Alcohol Use Standard Drinks/Week Comments Yes 12 (1 standard drink = 0.6 oz pure alcohol) Pt states has 5-6 beers per day Housing Instability Answer Date Recorde d Are you worried that in the next 2 months you may not have stable housing? No 03/03/2025 Food Access & Nutrition Answer Date Rec orded Do you have access to a vari ety of food including fruits and vegetables? Yes 03/03/2025 Access to Healthcare Answer Date Record ed Within the last 3 months, ho w many times did you visit the emergency department for your medical care? 1 03/03/2025 Health Literacy Answer Date Recorded How often do you need to hav e someone help you when you read instructions, pamphlets, or other written material from your doctor or pharmacy? Never 03/03/2025 Caregiver: How often do you need to have someone help you when you read instructions, pamphlets, or other written material from your doctor or pharmacy? Not on file 03/03/2025 Financial Risk Answer Date Recorded How hard is it for you to pa y for the very basics like food, housing, medical care, and air conditioning / heating? Not very hard 03/03/2025 Transportation Answer Date Recorded Has the lack of transportati on kept you from meetings, work, or from getting things needed for daily living? No Has the lack of transportati on kept you from medical appointments or from getting medications? No 03/03/2025 Social Isolation Answer Date Recorded How often do you feel lonely or isolated from those around you? Sometimes 03/03/2025 Food Risk Answer Date Recorded Within the past 12 months we worried whether our food would run out before we got money to buy more. Never true 03/03/2025 Within the past 12 months th e food we bought just didn't last and we didn't have money to get more. Never true 03/03/2025 Dependent Care Answer Date Recorded Do you need help finding or paying for care for your loved ones. For example, children librarian or elderly care for an older adult? No 02/27/2025 Education Answer Date Recorded Do you think completing more education or training, like finishing a GED, going to college, or learning a trade, would be helpful for you? No 03/03/2025 Employment and Income Answer Date Recor ded During the last four weeks, have you been actively looking for work? No 03/03/2025 Living Situation Answer Date Recorded What is your living situation? 0 03/03/2025 Sex and Gender Information Value Date Recorded Sex Assigned at Male 12/14/2024 10:12 AM EST Legal Sex Male 4:20 AM EST Gender Identity Male 12/14/2024 10:12 AM EST Sexual Orientation Straight 12/14/2024 10 :12 AM EST Obstetrics History Last Filed Vital Signs Vital Sign Reading Time Taken Comments Blood Pressure 140/72 03/03/2025 11:16 AM EDT Pulse 76 03/03/2025 11:16 AM EDT Temperature - - Respiratory Rate - - Oxygen Saturation - - Inhaled Oxygen Concentration - - Weight 126 kg (278 lb 11.2 oz) 03/03/2025 11:16 AM EDT Height 180.3 cm (5' 11 ) 03/03/2025 11:16 AM EDT Body Mass Index 38.87 03/03/2025 11:16 AM EDT Plan of Treatment Upcoming Encounters Date Type Department Care Team (Late st Contact Info) Description 09/02/2025 11:00 AM EDT Office Visit Internal Medicine - [address] [phone] Marcin Segura MD [address] [place] [phone] Health Maintenance Due Date Last Done Comments Diabetes: Annual Foot Exam 1960 Hepatitis A Vaccines (1 of 2 - Risk 2-dose series) 1969 Zoster Vaccines (1 of 2) 2000 Diabetes: Annual Urine Albumin-Creatinine Ratio (uACR) 03/05/2024 03/05/2023 COVID-19 Vaccine ( season) 2024 01/30/2022, 03/29/2021, 02/28/2021 Diabetes: Blood Sugar Control Test (HGBA1C) 12/19/2024 06/18/2024, 06/18/2024 RSV Immunization Adult Patients (1 - 1-dose 75+ series) 2025 Diabetes: Annual GFR (Glomerular Filtration Rate) 06/18/2025 06/18/2024, 06/18/2024, 05/24/2024 Hypertension/CHF/CAD Annual BMP Blood Test 06/18/2025 06/18/2024, 06/18/2024, 05/24/2024 Influenza Vaccine (Season Ended) 2025 08/29/2023, 09/26/2022, 10/28/2021, Additional history exists Diabetes: Annual Retina Eye Exam 01/16/2026 01/16/2025 Medicare Annual Wellness Visit 02/27/2026 02/27/2025 Depression Screening 03/03/2026 03/03/2025 Falls Risk Assessment 03/03/2026 03/03/2025, 025 Social Influencers of Health Screening 03/03/2026 03/03/2025 DTaP,Tdap,and Td Vaccines (2 - Td or Tdap) 11/21/2026 11/21/2016 Colorectal Cancer Screening: Colonoscopy 02/13/2029 02/14/2024 Cholesterol Screening (Lipid Panel) 06/18/2029 06/18/2024, 06/18/2024 Hepatitis C Screening Completed 05/11/2008 Abdominal Aortic Aneurysm (AAA) Screen Completed 08/27/2009 Pneumococcal Vaccine: 50+ Years Completed 09/20/2020, 01/09/2018 HIB Vaccines Aged Out No longer eligi ble based on patient's age to complete this topic HPV Vaccines Aged Out No longer eligi ble based on patient's age to complete this topic Hepatitis B Vaccines Aged Out No long er eligible based on patient's age to complete this topic IPV Vaccines Aged Out No longer eligi ble based on patient's age to complete this topic MMR Vaccines Aged Out No longer eligi ble based on patient's age to complete this topic Meningococcal ACWY Vaccine Aged Out N o longer eligible based on patient's age to complete this topic Meningococcal B Vaccine Aged Out No l onger eligible based on patient's age to complete this topic RSV Immunization Patients Under 20 months Aged Out No longer eligible based on patient's age to complete this topic Varicella Vaccines Aged Out No longer eligible based on patient's age to complete this topic Procedures Procedure Name Priority Date/Time Associated Diagnosis Comments EXTERNAL DIABETIC RETINA EYE EXAM 01/16/2025 ANNUAL BMP BLOOD TEST Routine 06/18/2024 HEMOGLOBIN A1C Routine 06/18/2024 LIPID PANEL Routine 06/18/2024 COLONOSCOPY Routine 02/14/2024 URINE ALBUMIN CREATININE RATIO Routine 03/05/2023 ABDOMINAL AORTIC ANEURYSM SCRREN Routine 08/27/2009 HEPATITIS C SCREENING Routine 05/11/2008 from Last 3 Months or Most Recently Relevant to Health Maintenance Results * External Diabetic Retina Eye Exam Report (01/16/2025) Anatomical Region Laterality Modality Ultrasound Provider [place] [facility] US PROCEDURES Final Result * Annual BMP Blood Test (06/18/2024) Pathologist [facility] Annual BMP Blood Test abstracted Result [facility] Provider HEALTH MAINTENANCE Final Result * Hemoglobin A1c (06/18/2024) [facility] Hemoglobin A1C 6.5 <=6.5 % Blood Venous blood specimen / Unknown Result [facility] Provider LAB BLOOD ORDERABLES Charlette l Result * Lipid panel (06/18/2024) [facility] LDL/HDL Ratio 2 0 - 4 Triglycerides 142 0 - 150 mg/dL Cholesterol 165 0 - 200 mg/dL HDL 83 >=40 mg/dL LDL Cholesterol 54 0 - 100 mg/dL Blood Venous blood specimen / Unknown Result [facility] Provider LAB BLOOD ORDERABLES Charlette l Result * Colonoscopy (02/14/2024) [facility] Colonoscopy no interpretation , abstracted Anatomical Region Laterality Modality Other Result [facility] Provider HEALTH MAINTENANCE Final Result * Urine Albumin Creatinine Ratio (03/05/2023) [facility] Urine Albumin Creatinine Ratio abstracted Result [facility] Provider HEALTH MAINTENANCE Final Result * Abdominal Aortic Aneurysm Screen (08/27/2009) [facility] Abdominal Aortic Aneurysm (AAA) Screening abstracted Anatomical Region Laterality Modality Other Result [facility] Provider HEALTH MAINTENANCE Final Result * Hepatitis C Screening (05/11/2008) [facility] Hepatitis C Screening abstracted Result [facility] Provider HEALTH MAINTENANCE Final Result from Last 3 Months or Most Recently Relevant to Health Maintenance Insurance [employer] Care Teams Building Energy Consultant Relationship Specialty Start Date End Date Marcin Segura MD [address] [place] [id number] PCP - General 10/12/1992
== END 2025-05-04 12:23 | disposition home or self-care (01) ==
LOC: HO.HSMS 10:52
PROVIDERS: PCP Internal Medicine; Visit Provider Nurse Practitioner Family
DX: G20.A1 Parkinson's disease without dyskinesia, without mention of fluctuations (principal); G47.52 REM sleep behavior disorder; G25.81 Restless legs syndrome; F03.90 Unspecified dementia, unspecified severity, without behavioral disturbance, psychotic disturbance, mood disturbance, and anxiety
CPT/HCPCS: 99214; G2211

== ENCOUNTER → 2025-05-04 10:51 | Outpatient (BNVA) | payer MEDICARE, SELFPAY | PROVIDERS: PCP Internal Medicine; Visit Provider Nurse Practitioner Family | DX: G20.A1 Parkinson's disease without dyskinesia, without mention of fluctuations (principal); G47.52 REM sleep behavior disorder; G25.81 Restless legs syndrome; F03.90 Unspecified dementia, unspecified severity, without behavioral disturbance, psychotic disturbance, mood disturbance, and anxiety | CPT/HCPCS: 99212 ==

== ENCOUNTER 2025-11-02 10:21 | Outpatient (AMB) | payer MEDICARE, SELFPAY ==
--- NOTE | 2025-11-02 10:53 | A.OFFVIS_ITS ---
Vital Signs 11/02/25 10:54 Height 5 ft 11 in Weight 277 lb 4 oz BMI 38.7 BP 124/80 Blood Pressure Location Rt brachial Position Sitting Pulse 71 Pulse Source Pulse Oximeter Pulse Oximetry (%) 95 Oxygen Delivery Method Room Air Intake Visit Reasons: 6m follow up Intake Note: Follow up Parkinson's disease without dyskinesia Spike Machine Operator Required: No Accompanied by: Spouse Allergies No Known Allergies Allergy (Verified 11/02/25 10:54) HPI Comments Details: 75-year-old male presenting with Parkinson's disease, REM sleep behavior disorder, restless legs syndrome, and dementia. Patient is accompanied by his . Denies any recent fevers, serious infections. May occasionally have a self-limited cold. He may drink 6-8 beers a night- intake has increased- his states he will drink however many beers are in his mini-frideg. He has reduced the cigarette use to 5 cigarettes per day. Weight Management: He is again on a non-prescription weight management pill called Golo. Taking Rytary 3 caps every 12 hours- qam and QHS- he will not take them mid-day. Activities of daily living (ADL's): Independent Instrumental activities of daily living (IADL's): manage his medications. Patient no longer drives Swallowing difficulty: May cough with spicy food. He may cough, which is a/w runny nose- per his , but he does notice it. Cough: as above Drooling: Denies Orthostatic lightheadedness: Reports slight brief lightheadedness when standing up. * Can also have room-spinning dizziness, when sitting at the kitchen table- passes quickly. * This is worse when his ears are more blocked Constipation: States he used to have a BM daily, but now it is every 2-3 days and constipated. * He is not taking much fluids- a couple of cups of coffee in the am, but then not much else until the afternoon. Urinary symptoms: seeinga urologist for his prostate issues- better on his current tx Tremor: Mild, Dyskinesia: None Stiffness: Generalized stiffness Musculoskeletal symptoms: Reports ongoing chronic low back pain Gait difficulties or changes: Reports some dizziness and balance issues- improves the longer he walks. Using a walker. Has a scooter at home, and a more rugged scooter at camp. Freezing episodes of gait: Likely the foot dragging symptoms are bouts or freezing Falls: He has had 3 falls in the last 6 months * one slipped and almost fell getting out of the bed * 2 at camp * one he slid off of an air mattress he sat on * the other he fell going down the last stair Mood difficulties or changes: he states nasty . Hallucinations: Reports seeing he is seeing more people. Memory difficulties or changes: Reports increased forgetfulness Sleep difficulties: He is punching and yelling more at night during sleep. He is waking up with cuts and blood on his hands and feet. He is sleeping in a hospital bed in the main bedroom. His feels that he is kicking himself. He is not leaving the bed.He is not interested in retrying CPAP Exercise routine: Limited Socialization and cognitive activities: Has good social support, increased socialization what camp during the summer. [facility] Medical History Parkinson's disease Status post placement of bone anchored hearing aid (BAHA) Open dislocation of right thumb Diabetes mellitus Osteoporosis Hyperlipidemia HTN (hypertension) Surgical History No pertinent past surgical history Family History Mother Diabetes Cancer Family/Other Thyroid cancer Social History Household Members: Spouse Housing: House Alcohol intake: current Alcohol intake frequency: a few times a week Patient Tobacco Use Status: Current everyday Tobacco user Physical Exam Vital Signs: Last Vital Signs Pulse 71 11/02/25 10:54 BP 124/80 11/02/25 10:54 Pulse Ox 95 11/02/25 10:54 Oxygen Delivery Method Room Air 11/02/25 10:54 BMI result Body Mass Index 38.7 Const General: cooperative and no acute distress Resp Effort & Inspection: normal respiratory effort and able to speak in complete sentences Neuro Other: General: A&O. Responding appropriately. Mild STM lapses- more so with medications, healthcare specific information. Chronic left facial asymmetry Mild NISQUALLY Mild intermittent LUE rest No visible postural tremor today BUE bradkinesia- L > R BLE bradykinesia- L > R LUE tone Slow to stand, stooped, short steps w/ RLE slight outturn, steady gait w/ walker. Assessment & Plan Assessment & Plan (1) Parkinson's disease without dyskinesia: Code(s): G20.A1 - Parkinson's disease without dyskinesia, without mention of fluctuations Category: Medical Qualifiers: Fluctuating manifestations: with fluctuating manifestations Qualified Code(s): G20.A2 - Parkinson's disease without dyskinesia, with fluctuations (2) REM sleep behavior disorder: Code(s): G47.52 - REM sleep behavior disorder Category: Medical (3) Restless leg syndrome: Code(s): G25.81 - Restless legs syndrome Category: Medical (4) Dementia: Code(s): F03.90 - Unspecified dementia, unspecified severity, without behavioral disturbance, psychotic disturbance, mood disturbance, and anxiety Category: Medical Qualifiers: Dementia type: unspecified type Dementia severity: mild Plan Discussion Notes We discussed today that likely his increased symptoms of parasomnias and hallucinations are multifactorial. These maybe increase due to taking the Rytary as 3 caps twice a day rather than spreading out the doses throughout the day. Additionally, the patient and endorsed that he has increased beer intake up to 5-6 beers per night, which can exacerbate both parasomnias and hallucinations, as well as decreased sleep quality overall. He is advised to not take the clonazepam if he has been taking alcohol, as this can lead to altered mental status, respiratory suppression, and even . I discussed that there is an alternative to Rytary, such as subcutaneous infused carbidopa levodopa formulation, Vyalev. Information shared with patient in his to review, this may allow the patient to have continuous infusion of levodopa 2 low more consistent therapeutic effect, at lower doses, which would reduce risk for hallucinations and nocturnal parasomnias, and allow him to not need to take mid day doses of levodopa. They will consider and let us know. In the meantime: Advised to take Rytary 48.75-195mg, 2 caps t.i.d.. Continue Pramipexole ER 0.375mg daily at bedtime Continue Memantine 10mg bid Continue Gabapentin- for RLS/PLMS. Continue Baclofen 5-10mg prn- for low back pain. Continue Clonazepam 0.5mg qhs- prn for REM sleep behaviors. Continue Wellbutrin, Paxil- now managed by PCP.? Encouraged to increase physical activity Previously requested psychiatry consult to help optimize mood and sleep symptoms. Patient is still not interested in resuming CPAP therapy. Previous trials: Pramipexole IR, not fully effective. Neupro patch- d/t skin i rritation. Donepezil cause agitation. Future considerations: Discuss potential for Alzheimer's prevention medications in future visits, pending further testing and evaluation- however I would hold o n this due to patient's current alcohol intake, as all current anti amyloid targeted therapy does increase risk for intracerebral microhemorrhages. ? f/u in 6 months or sooner prn. Coding Level of Care Code Est Pt Level 4 (23126) Add On Problem Visit Only Diagnoses Parkinson's disease without dyskinesia, with fluctuating manifestations G20.A2 Fluctuating manifestations: with fluctuating manifestations REM sleep behavior disorder G47.52 Restless leg syndrome G25.81 Dementia F03.90 Dementia type: unspecified type Dementia severity: mild
[2025-11-02 10:54] VITALS: BP 124/80; PULSE 71; O2SAT 95; BMI 38.7
--- OUTSIDE RECORDS SUMMARY | 2025-11-02 12:34 | XMS_ITS | Encounter Summary ---
Author Organization [facility] Prior to 09/12/2024 Address [address] [place] [address] Care Team Providers Care Actuarial Mathematician Name Role Phone Marcin Segura MD Primary Care Provider [phone] Sal Padilla MD Unavailable Unavailable Kamlesh Webb Unavailable Unavailable Chris Donaldson Unavailable Unavailable Hannah Beckwith PA-C Unavailable [phone] Mallika Soares MD Unavailable Reason for Visit * Reason Onset Date Comments Medication 01/31/2024 Encounter Details Date Type Department Care Team Description 01/31/2024 Refill Gastroenterology [facility] [address] [place] [phone] Jeremy Diaz MD [address] [place] [address] Medication Social History Tobacco Use Types Packs/Day Years Used Date Smoking Tobacco: Every Day Cigarettes 0.5 Smokeless Tobacco: Never Comments:5 ciggerates a day Alcohol Use Standard Drinks/Week Comments Yes 12 (1 standard drink = 0.6 oz pu re alcohol) 12-24 beers per week Alcohol Habits Answer Date Recorded How often do you have a drin k containing alcohol? 4 or more times a week 08/28/2022 How many drinks containing a lcohol do you have on a typical day when you are drinking? Patient does not drink 08/28/2022 How often do you have six or more drinks on one occasion? Never 08/28/2022 Social Isolation Answer Date Recorded In a typical week, how many times do you talk on the phone with family, friends, or neighbors? Once a week 08/28/2022 How often do you get together with friends or re latives? Once a week 08/28/2022 How often do you attend episcopal or episcopal serv ices? Never 08/28/2022 Do you belong to any clubs o r organizations such as episcopal groups, unions, fraGateshop or athletic groups, or school groups? Yes 08/28/2022 How often do you attend meet ings of the clubs or organizations you belong to? Never 08/28/2022 Are you now , , , , never or living with a partner? 08/28/2022 Physical Activity Answer Date Recorded On average, how many days pe r week do you engage in moderate to strenuous exercise (like walking fast, running, jogging, dancing, swimming, biking, or other activities that cause a light or heavy sweat)? 0 days 08/28/2022 On average, how many minutes do you engage in exercise at this level? 0 min 08/28/2022 Stress Answer Date Recorded Do you feel stress - tense, restless, nervous, or anxious, or unable to sleep at night because your mind is troubled all the time - these days? To some extent 08/28/2022 Financial Resource Strain Answer Date R ecorded How hard is it for you to pa y for the very basics like food, housing, medical care, and heating? Not hard at all 08/28/2022 Intimate Partner Violence Answer Date R ecorded Within the last year, have y ou been afraid of your partner or ex-partner? No 08/28/2022 Within the last year, have y ou been humiliated or emotionally abused in other ways by your partner or ex-partner? No Within the last year, have y ou been kicked, hit, slapped, or otherwise physically hurt by your partner or ex-partner? No 08/28/2022 Within the last year, have y ou been raped or forced to have any kind of sexual activity by your partner or ex-partner? No 08/28/2022 Food Insecurity Answer Date Recorded Within the past 12 months, y ou worried that your food would run out before you got money to buy more. Never true 08/28/2022 Within the past 12 months, t he food you bought just didn't last and you didn't have money to get more. Never true 08/28/2022 Transportation Needs Answer Date Record ed In the past 12 months, has l ack of transportation kept you from medical appointments or from getting medications? No 08/12 In the past 12 months, has l ack of transportation kept you from meetings, work, or getting things needed for daily living? No 08/28/2022 Housing Stability Answer Date Recorded In the last 12 months, was t here a time when you were not able to pay the mortgage or rent on time? No 08/28/2022 In the last 12 months, how many places have you lived? 1 08/28/2022 In the last 12 months, was t here a time when you did not have a steady place to sleep or slept in a intermediate (including now)? No 08/28/2022 Sex Assigned at Date Recorded Not on file Job Start Date Occupation Industry Not on file Not on file Not on file documented as of this encounter Plan of Treatment Not on file documented as of this encounter Visit Diagnoses Not on filedocumented in this encounter Additional Health Concerns Infection Onset Date Last Indicated Resolved Time COVID-19 Comment:VNA advised Positive Covid on 02/10/22 02/10/2022 02/16/2022 documented as of this encounter Care Teams Actuarial Mathematician Relationship Specialty Start Date End Date Marcin Segura MD [address] [place] [address] PCP - General 10/12/1992 Sal Padilla MD [address] [place] [address] Nephrology 08/28/22 Kamlesh Webb [address] [place] [address] Ophthalmology 08/28/22 Chris Donaldson [address] [place] [address] Otolaryngology 08/28/22 Hannah Beckwith PA-C [address] [facility] [address] [place] [phone] Vascular Surgery 08/28/22 Mallika Soares MD [address] [place] [address] Specialist Pulmonology 08/28/22 documented as of this encounter
--- OUTSIDE RECORDS SUMMARY | 2025-11-02 12:34 | XMS_ITS | Encounter Summary ---
Author Organization [facility] Prior to 09/12/2024 Address [address] [place] [address] Care Team Providers Care Tube Heater Name Role Phone Marcin Segura MD Primary Care Provider [phone] Sal Padilla MD Unavailable Unavailable Kamlesh Webb Unavailable Unavailable Chris Donaldson Unavailable Unavailable Hannah Beckwith PA-C Unavailable [phone] Mallika Soares MD Unavailable Encounter Details Date Type Department Care Team Description 12/13/2023 Orders Only [facility] Lung Screening Program [place] [address] [facility] [address] [place] [phone] Jj Nunez MD [address] [facility] [place] [address] [place] [id number] History of tobacco abuse Social History Tobacco Use Types Packs/Day Years [...] week 08/28/2022 How often do you attend episcopalian or presybeterian serv ices? Never 08/28/2022 Do you belong to any clubs o r organizations such as episcopalian groups, unions, fraExajoule or athletic groups, or school groups? Yes [...] place to sleep or slept in a penitentiary (including now)? No 08/28/2022 Sex Assigned at Date Recorded Not on file Job Start Date Occupation Industry Not on file Not on file Not on file documented as of this encounter Plan of Treatment Not on file documented as of this encounter Procedures Procedure Name Priority Date/Time Associated Diagnosis Comments CT LOW DOSE LUNG SCREEN ANNUAL Routine 12/13/2023 History of tobacco abuse documented in this encounter Results * CT LOW DOSE LUNG SCREEN ANNUAL (12/13/2023) Jj Nunez MD CT SCANS documented in this encounter Visit Diagnoses Diagnosis History of tobacco abuse Personal history of tobacco use, presenting hazards to health documented in this encounter Additional Health Concerns Infection Onset Date Last Indicated Resolved Time COVID-19 Comment:VNA advised Positive Covid on 02/10/22 02/10/2022 02/16/2022 documented as of this encounter Care Teams Tube Heater Relationship Specialty Start Date End Date Marcin Segura MD [address] [place] [address] PCP - General 10/12/1992 Sal Padilla MD [address] [place] [address] [place] [address] Nephrology 08/28/22 Kamlesh Webb [address] [place] [address] Ophthalmology 08/28/22 Chris Donaldson [address] [place] [address] Otolaryngology 08/28/22 Hannah Beckwith PA-C [address] [facility] [address] [place] [phone] Vascular Surgery 08/28/22 Mallika Soares MD [address] [place] [phone] Specialist Pulmonology 08/28/22 documented as of this encounter
--- OUTSIDE RECORDS SUMMARY | 2025-11-02 12:34 | XMS_ITS | Encounter Summary ---
Author Organization [facility] Prior to 09/12/2024 Address [address] [place] [address] Care Team Providers Care Per Assessment Nurse Name Role Phone Marcin Segura MD Primary Care Provider [phone] Sal Padilla MD Unavailable Unavailable Kamlesh Webb Unavailable Unavailable Chris Donaldson Unavailable Unavailable Hannah Beckwith PA-C Unavailable [phone] Mallika Soares MD Unavailable Reason for Visit * Reason Comments E-prescribe Rx Request Encounter Details Date Type Department Care Team Description 04/17/2024 Refill Adult [facility] [address] [place] [address] Carolyn Sandoval NP [address] [place], [place] E-prescribe Rx Request Social History Tobacco Use Types Packs/Day Years [...] How often do you attend episcopal or hoahaoism serv ices? Never 08/28/2022 Do you belong to any clubs o r organizations such as episcopal groups, unions, fraDownstream or athletic groups, or school groups? Yes [...] place to sleep or slept in a long-term (including now)? No 08/28/2022 Sex Assigned at Date Recorded Not on file Job Start Date Occupation Industry Not on file Not on file Not on file documented as of this encounter Miscellaneous Notes * Telephone Encounter - Mirta Corona CMA - 04/17/2024 12:03 PM EDT Appt made for 06/18 * Telephone Encounter - Rebecca Ramos M.A. - 04/17/2024 9:58 AM EDT Date of last office visit was 01/28/24 Lab Results Component Value Date HGBA1C 7.0 01/28/2024 MALBUR 8.4 03/05/2023 MALBCR < 8.5 03/05/2023 CHOL 156 01/28/2024 LDL 64 01/28/2024 HDL 72 01/28/2024 TRIG 102 01/28/2024 GLU 156 01/28/2024 CREAT 1.15 01/28/2024 documented in this encounter Plan of Treatment Not on file documented as of this encounter Visit Diagnoses Not on filedocumented in this encounter Additional Health Concerns Infection Onset Date Last Indicated Resolved Time COVID-19 Comment:VNA advised Positive Covid on 02/10/22 02/10/2022 02/16/2022 documented as of this encounter Care Teams Per Assessment Nurse Relationship Specialty Start Date End Date Marcin Segura MD [address] [place] [address] PCP - General 10/12/1992 Sal Padilla MD [address] [place] [address] Nephrology 08/28/22 Kamlesh Webb [address] [place] [address] Ophthalmology 08/28/22 Chris Donaldson [address] [place] [address] Otolaryngology 08/28/22 Hannah Beckwith PA-C [address] [facility] [address] [place] [phone] Vascular Surgery 08/28/22 Mallika Soares MD [address] [place] [phone] Specialist Pulmonology 08/28/22 documented as of this encounter
--- OUTSIDE RECORDS SUMMARY | 2025-11-02 12:34 | XMS_ITS | Encounter Summary ---
Author Organization [employer] [facility] Prior to 09/12/2024 Address [address] [place] [address] Care Team Providers Care Speech Professor Name Role Phone Marcin Segura MD Primary Care Provider Sal Padilla MD Unavailable Unavailable Kamlesh Webb Unavailable Unavailable Chris Donaldson Unavailable Unavailable Hannah Beckwith PA-C Unavailable [phone] Mallika Soares MD Unavailable Encounter Details Date Type Department Care Team Description 04/15/2018 Education Professional Reports Medical Records [address] [place] [address] Angelique Delvalle Social History Tobacco Use Types Packs/Day Years Used Date Smoking Tobacco: Every Day Cigarettes 0.5 40 Last attempted to quit: 08/31/2013 Smokeless Tobacco: Current Comments:started at 16 years old - stopped smoking 05/24/2006- started smoking again in OCT 2006-(03/21/07) quit again 5 weeks ago-STARTED AGAIN 09/12/01/ PK PER DAY Alcohol Use Standard Drinks/Week Comments No 0 (1 standard drink = 0.6 oz pur e alcohol) 12-24 beers per week Alcohol Habits [...] week 08/28/2022 How often do you attend hoahaoism or oriental orthodox serv ices? Never 08/28/2022 Do you belong to any clubs o r organizations such as hoahaoism groups, unions, fraternal or athletic groups, or school groups? Yes [...] place to sleep or slept in a prison (including now)? No 08/28/2022 Sex Assigned at [...] documented as of this encounter Care Teams Speech Professor Relationship Specialty Start Date End Date Marcin Segura MD [address] [place] [address] PCP - General 10/12/1992 Sal Padilla MD [address] [place] [address] Nephrology 08/28/22 Kamlesh Webb [address] [place] [address] Ophthalmology 08/28/22 Chris Donaldson [address] [place] [address] Otolaryngology 08/28/22 Hannah Beckwith PA-C [address] [facility] [address] [place] [phone] Vascular Surgery 08/28/22 Mallika Soares MD [address] [place] [phone] Specialist Pulmonology 08/28/22 documented as of this encounter
--- OUTSIDE RECORDS SUMMARY | 2025-11-02 12:34 | XMS_ITS | Encounter Summary ---
Author Organization [facility] Prior to 09/12/2024 Address [address] [place] [address] Care Team Providers Care District Court Bailiff Name Role Phone Marcin Segura MD Primary Care Provider [phone] Sal Padilla MD Unavailable Unavailable Kamlesh Webb Unavailable Unavailable Chris Donaldson Unavailable Unavailable Hannah Beckwith PA-C Unavailable [phone] Mallika Soares MD Unavailable Reason for Visit * Reason Onset Date Comments Financial Market Dealer Feedback 10/22/2018 pacs Encounter Details Date Type Department Care Team Description 10/22/2018 Telephone Adult Medicine [address] [address] Marcin Segura MD [address] [place] [address] Financial Market Dealer Feedback (pacs) Social History Tobacco Use Types Packs/Day Years Used Date Smoking Tobacco: Every Day Cigarettes 0.5 40 Smokeless Tobacco: Never Comments:started at 16 years old - stopped [...] week 08/28/2022 How often do you attend yazidi or yazidi serv ices? Never 08/28/2022 Do you belong to any clubs o r organizations such as yazidi groups, unions, fraternal or athletic groups, or [...] place to sleep or slept in a custodial (including now)? No 08/28/2022 Sex Assigned at Date Recorded Not on file Job Start Date Occupation Industry Not on file Not on file Not on file documented as of this encounter Miscellaneous Notes * Telephone Encounter - Yoli Page - 10/22/2018 2:28 PM EST Please upload patient's knee xray from 06/01/17 to ortho pacs at [facility] Thank you, Yoli Referrals Coordinator [facility] Referrals Department documented in this encounter Plan of Treatment Not on file documented as of this encounter Visit Diagnoses Not on filedocumented in this encounter Additional Health Concerns Infection Onset Date Last Indicated Resolved Time COVID-19 Comment:VNA advised Positive Covid on 02/10/22 02/10/2022 02/16/2022 documented as of this encounter Care Teams District Court Bailiff Relationship Specialty Start Date End Date Marcin Segura MD [address] [place] [address] PCP - General 10/12/1992 Sal Padilla MD [address] [place] [address] Nephrology 08/28/22 Kamlesh Webb [address] [place] [address] Ophthalmology 08/28/22 Chris Donaldson [address] [place] [address] Otolaryngology 08/28/22 Hannah Beckwith PA-C [address] [facility] [address] [place] [phone] Vascular Surgery 08/28/22 Mallika Soares MD [address] [place] [phone] Specialist Pulmonology 08/28/22 documented as of this encounter
--- OUTSIDE RECORDS SUMMARY | 2025-11-02 12:34 | XMS_ITS | Encounter Summary ---
Author Organization [employer] [facility] Prior to 09/12/2024 Address [address] [place] [address] Care Team Providers Care Plastic Battery Assembler Name Role Phone Marcin Segura MD Primary Care Provider [phone] Sal Padilla MD Unavailable Unavailable Kamlesh Webb Unavailable Unavailable Chris Donaldson Unavailable Unavailable Hannah Beckwith PA-C Unavailable [phone] Mallika Soares MD Unavailable Encounter Details Date Type Department Care Team Description 12/26/2012 Energy Efficiency Specialist Report Medical Records [address] [place] [address] Chris Donaldson Social History Tobacco Use Types Packs/Day Years Used Date Smoking Tobacco: Former Cigarettes 0.5 40 Q uit: 01/04/2011 Smokeless Tobacco: Never Comments:started at 16 years old - stopped smoking 05/24/2006- started smoking again in OCT 2006-(03/21/07) quit again 5 weeks ago-STARTED AGAIN 09/12/01/ PK PER DAY Alcohol Use Standard Drinks/Week Comments Yes 0 (1 standard drink = 0.6 oz [...] week 08/28/2022 How often do you attend anabaptism or scientologist serv ices? Never 08/28/2022 Do you belong to any clubs o r organizations such as anabaptism groups, unions, fraternal or athletic groups, or [...] documented as of this encounter Care Teams Plastic Battery Assembler Relationship Specialty Start Date End Date Marcin Segura MD [address] [place] [address] PCP - General 10/12/1992 Sal Padilla MD [address] [place] [address] Nephrology 08/28/22 Kamlesh Webb [address] [place] [address] Ophthalmology 08/28/22 Chris Donaldson [address] [place] [address] Otolaryngology 08/28/22 Hannah Beckwith PA-C 300 [facility] [address] [place] [phone] Vascular Surgery 08/28/22 Mallika Soares MD [address] [place] [phone] Specialist Pulmonology 08/28/22 documented as of this encounter
--- OUTSIDE RECORDS SUMMARY | 2025-11-02 12:34 | XMS_ITS | Encounter Summary ---
Author Organization [facility] Prior to 09/12/2024 Address [address] [place] [address] Care Team Providers Care Records Specialist Name Role Phone Marcin Segura MD Primary Care Provider [phone] Sal Padilla MD Unavailable Unavailable Kamlesh Webb Unavailable Unavailable Chris Donaldson Unavailable Unavailable Hannah Beckwith PA-C Unavailable [phone] Mallika Soares MD Unavailable Encounter Details Date Type Department Care Team Description 06/13/2018 Hospital Medical Records [address] [place] [address] Tony Muñiz MD Social History Tobacco Use Types Packs/Day Years [...] week 08/28/2022 How often do you attend restoration or catholic serv ices? Never 08/28/2022 Do you belong to any clubs o r organizations such as restoration groups, unions, fraternal or athletic groups, or [...] place to sleep or slept in a fdc (including now)? No 08/28/2022 Sex Assigned at [...] documented as of this encounter Care Teams Records Specialist Relationship Specialty Start Date End Date Marcin Segura MD [address] [place] [address] PCP - General 10/12/1992 Sal Padilla MD [address] [place] [address] Nephrology 08/28/22 Kamlesh Webb [address] [place] [address] Ophthalmology 08/28/22 Chris Donaldson [address] [place] [address] Otolaryngology 08/28/22 Hannah Beckwith PA-C 300 [facility] [address] [place] [phone] Vascular Surgery 08/28/22 Mallika Soares MD [address] [place] [phone] Specialist Pulmonology 08/28/22 documented as of this encounter
--- OUTSIDE RECORDS SUMMARY | 2025-11-02 12:34 | XMS_ITS | Encounter Summary ---
Author Organization [employer] [facility] Prior to 09/12/2024 Address [address] [place] [address] Care Team Providers Care Construction Site Manager Name Role Phone Marcin Segura MD Primary Care Provider [phone] Sal Padilla MD Unavailable Unavailable Kamlesh Webb Unavailable Unavailable Chris Donaldson Unavailable Unavailable Hannah Beckwith PA-C Unavailable [phone] Mallika Soares MD Unavailable Encounter Details Date Type Department Care Team Description 05/20/2018 Security Assistant Report Medical Records [address] [place] [address] Re[facility] [place] Social History Tobacco Use Types Packs/Day Years [...] week 08/28/2022 How often do you attend confucianist or buddhist serv ices? Never 08/28/2022 Do you belong to any clubs o r organizations such as confucianist groups, unions, fraternal or athletic groups, or [...] documented as of this encounter Care Teams Construction Site Manager Relationship Specialty Start Date End Date Marcin Segura MD [address] [place] [address] PCP - General 10/12/1992 Sal Padilla MD [address] [place] [address] Nephrology 08/28/22 Kamlesh Webb [address] [place] [address] Ophthalmology 08/28/22 Chris Donaldson [address] [place] [address] Otolaryngology 08/28/22 Hannah Beckwith PA-C 300 [facility] [address] [place] [phone] Vascular Surgery 08/28/22 Mallika Soares MD [address] [place] [phone] Specialist Pulmonology 08/28/22 documented as of this encounter
--- OUTSIDE RECORDS SUMMARY | 2025-11-02 12:34 | XMS_ITS | Encounter Summary ---
Author Organization [facility] Prior to 09/12/2024 Address [address] [place] [address] Care Team Providers Care Packer And Carry Out Name Role Phone Marcin Segura MD Primary Care Provider [phone] Sal Padilla MD Unavailable Unavailable Kamlesh Webb Unavailable Unavailable Chris Donaldson Unavailable Unavailable Hannah Beckwith PA-C Unavailable [phone] Mallika Soares MD Unavailable Encounter Details Date Type Department Care Team Description 11/08/2017 Field Radio Technician Report Medical Records [address] [place] [address] Mindi Self MD Social History Tobacco Use Types Packs/Day [...] week 08/28/2022 How often do you attend mormonism or congregation serv ices? Never 08/28/2022 Do you belong to any clubs o r organizations such as mormonism groups, unions, fraternal or athletic groups, or [...] place to sleep or slept in a usp (including now)? No 08/28/2022 Sex Assigned at [...] documented as of this encounter Care Teams Packer And Carry Out Relationship Specialty Start Date End Date Marcin Segura MD [address] [place] [address] PCP - General 10/12/1992 Sal Padilla MD [address] [place] [address] Nephrology 08/28/22 Kamlesh Webb [address] [place] [address] Ophthalmology 08/28/22 Chris Donaldson [address] [place] [address] Otolaryngology 08/28/22 Hannah Beckwith PA-C 300 [facility] [address] [place] [phone] Vascular Surgery 08/28/22 Mallika Soares MD [address] [place] [phone] Specialist Pulmonology 08/28/22 documented as of this encounter
--- OUTSIDE RECORDS SUMMARY | 2025-11-02 12:34 | XMS_ITS | Encounter Summary ---
Author Organization [facility] Prior to 09/12/2024 Address [address] [place] [address] Care Team Providers Care Commodity Management Specialist Name Role Phone Marcin Segura MD Primary Care Provider [phone] Sal Padilla MD Unavailable Unavailable Kamlesh Webb Unavailable Unavailable Chris Donaldson Unavailable Unavailable Hannah Beckwith PA-C Unavailable [phone] Mallika Soares MD Unavailable Encounter Details Date Type Department Care Team Description 12/14/2023 Budget Record Clerk Report Medical Records [address] [place] [id number] [place] [address] Social History Tobacco Use Types Packs/Day Years [...] week 08/28/2022 How often do you attend gnosticist or orthodoxy serv ices? Never 08/28/2022 Do you belong to any clubs o r organizations such as gnosticist groups, unions, fraternal or athletic groups, or [...] place to sleep or slept in a snf (including now)? No 08/28/2022 Sex Assigned at [...] documented as of this encounter Care Teams Commodity Management Specialist Relationship Specialty Start Date End Date Marcin Segura MD [address] [place] [address] PCP - General 10/12/1992 Sal Padilla MD [address] [place] [address] Nephrology 08/28/22 Kamlesh Webb [address] [place] [address] Ophthalmology 08/28/22 Chris Donaldson [address] [place] [address] Otolaryngology 08/28/22 Hannah Beckwith PA-C 300 [facility] [address] [place] [phone] Vascular Surgery 08/28/22 Mallika Soares MD [address] [place] [phone] Specialist Pulmonology 08/28/22 documented as of this encounter
--- OUTSIDE RECORDS SUMMARY | 2025-11-02 12:34 | XMS_ITS | Clinical Summary ---
Author Organization [facility] Address [address] [place], [place] [id number] Care Team Providers Care Agency Trainer Name Role Phone Marcin Segura MD Primary Care Provider Unavail able Allergies No known active allergies Social History Tobacco Use Types Packs/Day Years Used Date Smoking Tobacco: Never Assessed Sex and Gender Information Value Date Recorded Sex Assigned at Male 05/23/2024 11:34 PM EDT Legal Sex Male 11:06 PM EDT Gender Identity Male 05/23/2024 11:34 PM EDT Sexual Orientation Heterosexual (straight) 05/23 11:34 PM EDT Last Filed Vital Signs Vital Sign Reading Time Taken Comments Blood Pressure 160/77 05/24/2024 3:29 AM EDT Pulse 71 05/24/2024 3:29 AM EDT Temperature 36.4 C (97.5 F) 05/24/2024 3:29 AM EDT Respiratory Rate 18 05/24/2024 3:29 AM EDT Oxygen Saturation 96% 05/24/2024 3:29 AM EDT Inhaled Oxygen Concentration - - Weight 118 kg (260 lb) 05/23/2024 11:22 PM EDT Height - - Body Mass Index - - Plan of Treatment Health Maintenance Due Date Last Done Comments Advance Care Planning 1950 Hepatitis C Virus Screening 1950 DTaP/Tdap/Td Vaccines (1 - Tdap) 1969 Pneumococcal Vaccines 50+ (1 of 2 - PCV) 1969 Colonoscopy 1995 Zoster (Shingles) Vaccine (1 of 2) 2000 RSV Vaccine 50 years and older and Patients (1 - 1-dose 75+ series) 2025 Influenza Vaccine 06/12/2025 09/07/2014, 07/28/2009 COVID-19 Vaccine (4 - 5-2 6 season) 2025 01/30/2022, 03/29/2021, 02/28/2021 Hepatitis B Vaccines Aged Out No long er eligible based on patient's age to complete this topic Insurance [employer] [place] [employer] MEDICARE Care Teams Agency Trainer Relationship Specialty Start Date End Date Marcin Segura MD PCP - General Internal Medicine 05/23/24
--- OUTSIDE RECORDS SUMMARY | 2025-11-02 12:34 | XMS_ITS | Encounter Summary ---
Author Organization [employer] [facility] Prior to 09/12/2024 Address [address] [place] [address] Care Team Providers Care Main Line Assembler Name Role Phone Marcin Segura MD Primary Care Provider [phone] Sal Padilla MD Unavailable Unavailable Kamlesh Webb Unavailable Unavailable Chris Donaldson Unavailable Unavailable Hannah Beckwith PA-C Unavailable [phone] Mallika Soares MD Unavailable Encounter Details Date Type Department Care Team Description 12/21/2023 Advertising Copywriter Report Medical Records [address] [place] [address] Sussy Tawanna Social History Tobacco Use Types Packs/Day Years [...] week 08/28/2022 How often do you attend zoroastrianism or protestant serv ices? Never 08/28/2022 Do you belong to any clubs o r organizations such as zoroastrianism groups, unions, fraternal or athletic groups, or [...] place to sleep or slept in a senior living (including now)? No 08/28/2022 Sex Assigned at [...] documented as of this encounter Care Teams Main Line Assembler Relationship Specialty Start Date End Date Marcin Segura MD [address] [place] [address] PCP - General 10/12/1992 Sal Padilla MD [address] [place] [address] Nephrology 08/28/22 Kamlesh Webb [address] [place] [address] Ophthalmology 08/28/22 Chris Donaldson [address] [place] [address] Otolaryngology 08/28/22 Hannah Beckwith PA-C 300 [facility] [address] [place] [phone] Vascular Surgery 08/28/22 Mallika Soares MD [address] [place] [phone] Specialist Pulmonology 08/28/22 documented as of this encounter
--- OUTSIDE RECORDS SUMMARY | 2025-11-02 12:34 | XMS_ITS | Encounter Summary ---
Author Organization [facility] [facility] Prior to 09/12/2024 Address [address] [place] [address] Care Team Providers Care Market Research Intern Name Role Phone Marcin Segura MD Primary Care Provider [phone] Sal Padilla MD Unavailable Unavailable Kamlesh Webb Unavailable Unavailable Chris Donaldson Unavailable Unavailable Hannah Beckwith PA-C Unavailable [phone] Mallika Soares MD Unavailable Encounter Details Date Type Department Care Team Description 08/28/2023 Religion Teacher Report Medical Records [address] [place] [address] Sussy Tawanna Social History Tobacco Use Types [...] week 08/28/2022 How often do you attend sabianist or restoration serv ices? Never 08/28/2022 Do you belong to any clubs o r organizations such as sabianist groups, unions, fraternal or athletic groups, or [...] place to sleep or slept in a detention (including now)? No 08/28/2022 Sex Assigned at Date Recorded Not on file Job Start Date Occupation Industry Not on file Not on file Not on file COVID-19 Exposure Response Date Recorded In the last 10 days, have yo u been in contact with someone who was confirmed or suspected to have Coronavirus/COVID-19? No / Unsure 08/29/2023 11:19 AM EDT documented as of this encounter Plan of Treatment Not on file documented as of this encounter Visit Diagnoses Not on filedocumented in this encounter Additional Health Concerns Infection Onset Date Last Indicated Resolved Time COVID-19 Comment:[facility] advised Positive Covid on 02/10/22 02/10/2022 02/16/2022 documented as of this encounter Care Teams Market Research Intern Relationship Specialty Start Date End Date Marcin Segura MD [address] [place] [address] PCP - General 10/12/1992 Sal Padilla MD [address] [place] [address] Nephrology 08/28/22 Kamlesh Webb [address] [place] [address] Ophthalmology 08/28/22 Chris Donaldson [address] [place] [address] Otolaryngology 08/28/22 Hannah Beckwith PA-C 300 [facility] [address] [place] [phone] Vascular Surgery 08/28/22 Mallika Soares MD [address] [place] [phone] Specialist Pulmonology 08/28/22 documented as of this encounter
--- OUTSIDE RECORDS SUMMARY | 2025-11-02 12:34 | XMS_ITS | Encounter Summary ---
Author Organization [facility] Prior to 09/12/2024 Address [address] [place] [address] Care Team Providers Care Forming Machine Adjuster Name Role Phone Marcin Segura MD Primary Care Provider [phone] Sal Padilla MD Unavailable Unavailable Kamlesh Webb Unavailable Unavailable Chris Donaldson Unavailable Unavailable Hannah Beckwith PA-C Unavailable [phone] Mallika Soares MD Unavailable Encounter Details Date Type Department Care Team Description 04/27/2023 Aviation Technician Report Medical Records [address] [place] [address] Sussy Tawanna Social History Tobacco Use Types [...] week 08/28/2022 How often do you attend anabaptist or baptism serv ices? Never 08/28/2022 Do you belong to any clubs o r organizations such as anabaptist groups, unions, fraternal or athletic groups, or [...] place to sleep or slept in a half-way (including now)? No 08/28/2022 Sex Assigned at [...] documented as of this encounter Care Teams Forming Machine Adjuster Relationship Specialty Start Date End Date Marcin Segura MD [address] [place] [address] PCP - General 10/12/1992 Sal Padilla MD [address] [place] [address] Nephrology 08/28/22 Kamlesh Webb [address] [place] [address] Ophthalmology 08/28/22 Chris Donaldson [address] [place] [address] Otolaryngology 08/28/22 Hannah Beckwith PA-C 300 [facility] [address] [place] [phone] Vascular Surgery 08/28/22 Mallika Soares MD [address] [place] [phone] Specialist Pulmonology 08/28/22 documented as of this encounter
--- OUTSIDE RECORDS SUMMARY | 2025-11-02 12:34 | XMS_ITS | Encounter Summary ---
Author Organization [facility] Prior to 09/12/2024 Address [address] [place] [address] Care Team Providers Care Supply Chain Coordinator Name Role Phone Marcin Segura MD Primary Care Provider [phone] Sal Padilla MD Unavailable Unavailable Kamlesh Webb Unavailable Unavailable Chris Donaldson Unavailable Unavailable Hannah Beckwith PA-C Unavailable [phone] Mallika Soares MD Unavailable Encounter Details Date Type Department Care Team Description 01/08/2018 Retail Sales Associate Seasonal Report Medical Records [address] [place] [address] HiTawanna hernandez Social History Tobacco Use Types Packs/Day Years [...] week 08/28/2022 How often do you attend christian or sikhism serv ices? Never 08/28/2022 Do you belong to any clubs o r organizations such as christian groups, unions, fraternal or athletic groups, or [...] documented as of this encounter Care Teams Supply Chain Coordinator Relationship Specialty Start Date End Date Marcin Segura MD [address] [place] [address] PCP - General 10/12/1992 Sal Padilla MD [address] [place] [address] Nephrology 08/28/22 Kamlesh Webb [address] [place] [address] Ophthalmology 08/28/22 Chris Donaldson [address] [place] [address] Otolaryngology 08/28/22 Hannah Beckwith PA-C 300 [facility] [address] [place] [phone] Vascular Surgery 08/28/22 Mallika Soares MD [address] [place] [phone] Specialist Pulmonology 08/28/22 documented as of this encounter
--- OUTSIDE RECORDS SUMMARY | 2025-11-02 12:34 | XMS_ITS | Encounter Summary ---
Author Organization [email or web address] [facility] Prior to 09/12/2024 Address [address] [place] [address] Care Team Providers Care Cylinder Batcher Name Role Phone Marcin Segura MD Primary Care Provider [phone] Sal Padilla MD Unavailable Unavailable Kalmesh Webb Unavailable Unavailable Chris Donaldson Unavailable Unavailable Hannah Beckwith PA-C Unavailable [phone] Mallika Soares MD Unavailable Encounter Details Date Type Department Care Team Description 04/15/2019 Shuttle Fitting Supervisor Report Medical Records [address] [place] [address] Froylan Bey I., PH.D Social History Tobacco Use Types Packs/Day Years [...] week 08/28/2022 How often do you attend samaritan or catholic serv ices? Never 08/28/2022 Do you belong to any clubs o r organizations such as samaritan groups, unions, fraternal or athletic groups, or [...] place to sleep or slept in a mcc (including now)? No 08/28/2022 Sex Assigned at [...] documented as of this encounter Care Teams Cylinder Batcher Relationship Specialty Start Date End Date Marcin Segura MD [address] [place] [address] PCP - General 10/12/1992 Sal Padilla MD [address] [place] [address] Nephrology 08/28/22 Kamlesh Webb [address] [place] [address] Ophthalmology 08/28/22 Chris Donaldson [address] [place] [address] Otolaryngology 08/28/22 Hannah Beckwith PA-C 300 [facility] [address] [place] [phone] Vascular Surgery 08/28/22 Mallika Soares MD [address] [place] [phone] Specialist Pulmonology 08/28/22 documented as of this encounter
--- OUTSIDE RECORDS SUMMARY | 2025-11-02 12:34 | XMS_ITS | Encounter Summary ---
Author Organization [facility] Prior to 09/12/2024 Address [address] [place] [address] Care Team Providers Care Extractor Operator Solvent Process Name Role Phone Marcin Segura MD Primary Care Provider [phone] Sal Padilla MD Unavailable Unavailable Kamlesh Webb Unavailable Unavailable Chris Donaldson Unavailable Unavailable Hannah Beckwith PA-C Unavailable [phone] Mallika Soares MD Unavailable Reason for Visit * Reason Comments E-prescribe Rx Request Encounter Details Date Type Department Care Team Description 06/19/2023 Refill Adult Medicine [facility] [address] [place] [address] Carolyn Sandoval NP [address] [place], [place] E-prescribe Rx Request Social History Tobacco [...] week 08/28/2022 How often do you attend taoist or spiritism serv ices? Never 08/28/2022 Do you belong to any clubs o r organizations such as taoist groups, unions, [email or web address] or athletic groups, or school groups? Yes [...] encounter Miscellaneous Notes * Telephone Encounter - Rebecca Ramos M.A. - 06/20/2023 10:14 AM EDT Date of last office visit was 01/24/23. 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) Type II or unspecified type diabetes mellitus with peripheral circulatory disorders, not stated as uncontrolled documented in this encounter Additional Health Concerns Infection Onset Date Last Indicated Resolved Time COVID-19 Comment:[facility] advised Positive Covid on 02/10/22 02/10/2022 02/16/2022 documented as of this encounter Care Teams Extractor Operator Solvent Process Relationship Specialty Start Date End Date Marcin Segura MD [address] [place] [address] PCP - General 10/12/1992 Sal Padilla MD [address] [place] [address] Nephrology 08/28/22 Kamlesh Webb [address] [place] [address] Ophthalmology 08/28/22 Chris Donaldson [address] [place] [address] Otolaryngology 08/28/22 Hannah Beckwith PA-C 300 [facility] [address] [place] [phone] Vascular Surgery 08/28/22 Mallika Soares MD [address] [place] [phone] Specialist Pulmonology 08/28/22 documented as of this encounter
--- OUTSIDE RECORDS SUMMARY | 2025-11-02 12:35 | XMS_ITS | Encounter Summary ---
Author Organization [employer] [facility] Prior to 09/12/2024 Address [address] [place] [address] Care Team Providers Care Respiratory Services Manager Name Role Phone Marcin Segura MD Primary Care Provider [phone] Sal Padilla MD Unavailable Unavailable Kamlesh Webb Unavailable Unavailable Chris Donaldson Unavailable Unavailable Hannah Beckwith PA-C Unavailable Mallika Soares MD Unavailable Encounter Details Date Type Department Care Team Description 02/02/2012 Transportation Associate Report Medical Records [address] [place] [address] oJsiah Silva PA-C Social History Tobacco Use Types Packs/Day Years [...] week 08/28/2022 How often do you attend caodaism or episcopalian serv ices? Never 08/28/2022 Do you belong to any clubs o r organizations such as caodaism groups, unions, fraternal or athletic groups, or [...] place to sleep or slept in a residential (including now)? No 08/28/2022 Sex Assigned at [...] documented as of this encounter Care Teams Respiratory Services Manager Relationship Specialty Start Date End Date Marcin Segura MD [address] [place] [address] PCP - General 10/12/1992 Sla Padilla MD [address] [place] [address] Nephrology 08/28/22 Kamlesh Webb [address] [place] [address] Ophthalmology 08/28/22 Chris Donaldson [address] [place] [address] Otolaryngology 08/28/22 Hannah Beckwith PA-C 300 [facility] [address] [place] [phone] Vascular Surgery 08/28/22 Mallika Soares MD [address] [place] [phone] Specialist Pulmonology 08/28/22 documented as of this encounter
--- OUTSIDE RECORDS SUMMARY | 2025-11-02 12:35 | XMS_ITS | Encounter Summary ---
Author Organization [facility] Prior to 09/12/2024 Address [address] [place] [address] Care Team Providers Care Day Porter Name Role Phone Marcin Segura MD Primary Care Provider [phone] Sal Padilla MD Unavailable Unavailable Kamlesh Webb Unavailable Unavailable Chris Donaldson Unavailable Unavailable Hannah Beckwith PA-C Unavailable [phone] Mallika Soares MD Unavailable Encounter Details Date Type Department Care Team Description 11/07/2018 Personnel Research Scientist Report Medical Records [address] [place] [id number] [place] [address] Orthopedic, Surgeons Social History Tobacco Use Types Packs/Day Years Used Date Smoking Tobacco: Every Day Cigarettes 0.5 40 Smokeless Tobacco: Never Comments:started at 16 years old - stopped smoking 05/24/2006- started smoking again in OCT 2006-(03/21/07) quit again 5 weeks ago-STARTED AGAIN 09/12/01 PK PER DAY Alcohol Use Standard Drinks/Week [...] How often do you attend anabaptism or adventist serv ices? Never 08/28/2022 Do you belong [...] to sleep or slept in a senior care (including now)? No 08/28/2022 Sex Assigned at [...] documented as of this encounter Care Teams Day Porter Relationship Specialty Start Date End Date Marcin Segura MD [address] [place] [address] PCP - General 10/12/1992 Sal Padilla MD [address] [place] [address] Nephrology 08/28/22 Kamlesh Webb [address] [place] [address] Ophthalmology 08/28/22 Chris Donaldson [address] [place] [address] Otolaryngology 08/28/22 Hannah Beckwith PA-C 300 [facility] [address] [place] [phone] Vascular Surgery 08/28/22 Mallika Soares MD [address] [place] [phone] Specialist Pulmonology 08/28/22 documented as of this encounter
--- OUTSIDE RECORDS SUMMARY | 2025-11-02 12:35 | XMS_ITS | Encounter Summary ---
Author Organization [facility] Prior to 09/12/2024 Address [address] [place] [address] Care Team Providers Care Solution Advisor Name Role Phone Marcin Segura MD Primary Care Provider [phone] Sal Padilla MD Unavailable Unavailable Kamlesh Webb Unavailable Unavailable Chris Donaldson Unavailable Unavailable Hannah Beckwith PA-C Unavailable [phone] Mallika Soares MD Unavailable Encounter Details Date Type Department Care Team Description 09/02/2015 [employer] Sheets Supervisor Report Medical Records [address] [place] [address] Mindi Self MD Social History Tobacco Use [...] week 08/28/2022 How often do you attend druze or sabianism serv ices? Never 08/28/2022 Do you belong to any clubs o r organizations such as druze groups, unions, fraternal or athletic groups, or [...] place to sleep or slept in a assisted (including now)? No 08/28/2022 Sex Assigned at [...] documented as of this encounter Care Teams Solution Advisor Relationship Specialty Start Date End Date Marcin Segura MD [address] [place] [address] PCP - General 10/12/1992 Sal Padlila MD [address] [place] [address] Nephrology 08/28/22 Kamlesh Webb [address] [place] [address] Ophthalmology 08/28/22 Chris Donaldson [address] [place] [address] Otolaryngology 08/28/22 Hannah Beckwith PA-C 300 [facility] [address] [place] [phone] Vascular Surgery 08/28/22 Mallika Soares MD [address] [place] [phone] Specialist Pulmonology 08/28/22 documented as of this encounter
--- OUTSIDE RECORDS SUMMARY | 2025-11-02 12:35 | XMS_ITS | Encounter Summary ---
Author Organization [facility] Prior to 09/12/2024 Address [address] [place] [address] Care Team Providers Care Web Marketing Intern Name Role Phone Marcin Segura MD Primary Care Provider Sal Padilla MD Unavailable Unavailable Kamlesh Webb Unavailable Unavailable Chris Donaldson Unavailable Unavailable Hannah Beckwith PA-C Unavailable [phone] Mallika Soares MD Unavailable Encounter Details Date Type Department Care Team Description 11/30/2011 News Librarian Report Medical Records [address] [place] [address] Oli Bruno MD Social History Tobacco Use Types Packs/Day [...] week 08/28/2022 How often do you attend taoism or episcopalian serv ices? Never 08/28/2022 Do you belong to any clubs o r organizations such as taoism groups, unions, fraternal or athletic groups, or [...] place to sleep or slept in a fci (including now)? No 08/28/2022 Sex Assigned at [...] documented as of this encounter Care Teams Web Marketing Intern Relationship Specialty Start Date End Date Marcin Segura MD [address] [place] [address] PCP - General 10/12/1992 Sal Padilla MD [address] [place] [address] Nephrology 08/28/22 Kamlesh Webb [address] [place] [address] Ophthalmology 08/28/22 Chris Donaldson [address] [place] [address] Otolaryngology 08/28/22 Hannah Beckwith PA-C 300 [facility] [address] [place] [phone] Vascular Surgery 08/28/22 Mallika Soares MD [address] [place] [phone] Specialist Pulmonology 08/28/22 documented as of this encounter
--- OUTSIDE RECORDS SUMMARY | 2025-11-02 12:35 | XMS_ITS | Encounter Summary ---
Author Organization [employer] [facility] Prior to 09/12/2024 Address [address] [place] [address] Care Team Providers Care Accounts Receivable Coordinator Name Role Phone Marcin Segura MD Primary Care Provider [phone] Sal Padilla MD Unavailable Unavailable Kamlesh Webb Unavailable Unavailable Chris Donaldson Unavailable Unavailable Hannah Beckwith PA-C Unavailable [phone] Mallika Soares MD Unavailable Encounter Details Date Type Department Care Team Description 02/20/2012 Client Coordinator Report Medical Records [address] [place] [address] Chris Donaldson Social History Tobacco Use Types [...] week 08/28/2022 How often do you attend mu-ism or anabaptist serv ices? Never 08/28/2022 Do you belong to any clubs o r organizations such as mu-ism groups, unions, fraternal or athletic groups, or [...] place to sleep or slept in a [place] [facility] (including now)? No 08/28/2022 Sex Assigned at [...] documented as of this encounter Care Teams Accounts Receivable Coordinator Relationship Specialty Start Date End Date Marcin Segura MD [address] [place] [address] PCP - General 10/12/1992 Sal Padilla MD [address] [place] [address] Nephrology 08/28/22 Kamlesh Webb [address] [place] [address] Ophthalmology 08/28/22 Chris Donaldson [address] [place] [address] Otolaryngology 08/28/22 Hannah Beckwith PA-C 300 [facility] [address] [place] [phone] Vascular Surgery 08/28/22 Mallika Soares MD [address] [place] [phone] Specialist Pulmonology 08/28/22 documented as of this encounter
--- OUTSIDE RECORDS SUMMARY | 2025-11-02 12:35 | XMS_ITS | Encounter Summary ---
Author Organization [employer] [facility] Prior to 09/12/2024 Address [address] [place] [address] Care Team Providers Care Supervisor Water Treatment Plant Name Role Phone Marcin Segura MD Primary Care Provider [phone] Sal Padilla MD Unavailable Unavailable Kamlesh Webb Unavailable Unavailable Chris Donaldson Unavailable Unavailable Hannah Beckwith PA-C Unavailable [phone] Mallika Soares MD Unavailable Encounter Details Date Type Department Care Team Description 03/08/2012 Bed Teacher Report Medical Records [address] [place] [address] Josiah Silva PA-C Social History Tobacco Use Types [...] week 08/28/2022 How often do you attend bahai or roman catholic serv ices? Never 08/28/2022 Do you belong to any clubs o r organizations such as bahai groups, unions, fraternal or athletic groups, or [...] place to sleep or slept in a chcf (including now)? No 08/28/2022 Sex Assigned at [...] documented as of this encounter Care Teams Supervisor Water Treatment Plant Relationship Specialty Start Date End Date Marcin Segura MD [address] [place] [address] PCP - General 10/12/1992 Sal Padilla MD [address] [place] [address] Nephrology 08/28/22 Kamlesh Webb [address] [place] [address] Ophthalmology 08/28/22 Chris Donaldsno [address] [place] [address] Otolaryngology 08/28/22 Hannah Beckwith PA-C 300 [facility] [address] [place] [phone] Vascular Surgery 08/28/22 Mallika Soares MD [address] [place] [phone] Specialist Pulmonology 08/28/22 documented as of this encounter
--- OUTSIDE RECORDS SUMMARY | 2025-11-02 12:35 | XMS_ITS | Encounter Summary ---
Author Organization [facility] Prior to 09/12/2024 Address [address] [place] [address] Care Team Providers Care Parking Supervisor Name Role Phone Marcin Segura MD Primary Care Provider [phone] Sal Padilla MD Unavailable Unavailable Kamlesh Webb Unavailable Unavailable Chris Donaldson Unavailable Unavailable Hannah Beckwith PA-C Unavailable [phone] Mallika Soares MD Unavailable Encounter Details Date Type Department Care Team Description 07/10/2019 Hospital Medical Records [address] [place] [address] Rossana Reyna Social History Tobacco Use Types Packs/Day Years [...] How often do you attend episcopalian or anabaptist serv ices? Never 08/28/2022 Do you belong to any clubs o r organizations such as episcopalian groups, unions, fraternal or athletic groups, or [...] place to sleep or slept in a fpc (including now)? No 08/28/2022 Sex Assigned at [...] documented as of this encounter Care Teams Parking Supervisor Relationship Specialty Start Date End Date Marcin Segura MD [address] [place] [address] PCP - General 10/12/1992 Sal Padilla MD [address] [place] [address] Nephrology 08/28/22 Kamlesh Webb [address] [place] [address] Ophthalmology 08/28/22 Chris Donaldson [address] [place] [address] Otolaryngology 08/28/22 Hannah Beckwith PA-C 300 [facility] [address] [place] [phone] Vascular Surgery 08/28/22 Mallika Soares MD [address] [place] [phone] Specialist Pulmonology 08/28/22 documented as of this encounter
--- OUTSIDE RECORDS SUMMARY | 2025-11-02 12:35 | XMS_ITS | Clinical Summary ---
Author Organization [facility] Address [address] [address] Phone Care Team Providers Care Professor Of Latin American Studies Name Role Phone Marcin Segura MD Primary Care Provider + Social History Tobacco Use Types Packs/Day Years Used Date Smoking Tobacco: Never Assessed Education Answer Date Recorded Are you interested in more education? Not on ritika e 03/09/2023 Are you concerned about learning? Not on file 03/09/2023 No 03/09/2023 No 03/09/2023 Digital Access Answer Date Recorded No 04/07/2023 No 04/07/2023 No 04/07/2023 Reliable internet access at home? Not on file 04/07/2023 Device with a working camera? Not on file Sex and Gender Information Value Date Recorded Sex Assigned at Not on file Legal Sex Male 12:41 PM EST Gender Identity Not on file Sexual Orientation Not on file Plan of Treatment Health Maintenance Due Date Last Done Comments DEPRESSION SCREENING 1962 SMOKING Hx and SMOKELESS TOBACCO SCREENING 1963 HEPATITIS C SCREENING 1968 COLOGUARD 1995 COLONOSCOPY 1995 COLORECTAL CANCER SCREENING 1995 FIT TEST 1995 FOBT 1995 SIGMOIDOSCOPY 1995 VIRTUAL COLONOSCOPY 1995 ZOSTER VACCINES (1 of 2) 2000 RSV VACCINE (1 - 1-dose 75+ series) 2025 INFLUENZA VACCINE (#1) 2025 0, 09/20/2020, 09/23/2019, Additional history exists COVID-19 VACCINE ( season) 2025 03/29/2021, 02/28/2021 LIPID PANEL 07/20/2025 07/20/2020 Adult Td,Tdap Booster 11/21/2026 11/21/2016 PNEUMOCOCCAL VACCINES (50+ years) Completed 09/20/2020, 01/09/2018 HEPATITIS A VACCINES Aged Out No long er eligible based on patient's age to complete this topic HIB VACCINES Aged Out No longer eligi ble based on patient's age to complete this topic MENINGOCOCCAL VACCINES (ACWY) Aged Out No longer eligible based on patient's age to complete this topic MENINGOCOCCAL VACCINES (B) Aged Out N o longer eligible based on patient's age to complete this topic Medical Devices Not on file Insurance [employer] [place] [employer] H[place] REPLACEMENT [employer] [place] [employer] HMO REPLACEMENT [facility] MEDICARE HMO REPLACEMENT [employer] [place] [employer] HMO REPLACEMENT [facility] [place] [employer] HMO REPLACEMENT [facility] MEDICARE HMO REPLACEMENT [facility] [place] [employer] HMO REPLACEMENT [employer] [place] [employer] HMO REPLACEMENT [facility] MEDICARE HMO REPLACEMENT Care Teams Professor Of Latin American Studies Relationship Specialty Start Date End Date Marcin Segura MD [address] [place] [address] PCP - General Internal Medicine 09/15/20 Additional Source Comments The information contained in this document represents components of the legal health record. It is not the complete legal health record.[facility]
--- OUTSIDE RECORDS SUMMARY | 2025-11-02 12:35 | XMS_ITS | Encounter Summary ---
Author Organization [facility] Prior to 09/12/2024 Address [address] [place] [address] Care Team Providers Care Dental Amalgam Processor Name Role Phone Marcin Segura MD Primary Care Provider [phone] Sal Padilla MD Unavailable Unavailable Kamlesh Webb Unavailable Unavailable Chris Donaldson Unavailable Unavailable Hannah Beckwith PA-C Unavailable [phone] Mallika Soares MD Unavailable Reason for Visit * Reason Onset Date Comments VNA Call 03/29/2022 Encounter Details Date Type Department Care Team Description 03/29/2022 Telephone Adult Medicine [address] [address] Marcin Segura MD [address] [place] [address] VNA Call Social History Tobacco Use Types Packs/Day Years Used Date Smoking Tobacco: Every Day Cigarettes Smokeless Tobacco: Never Comments:5 ciggerates a day Alcohol Use Standard Drinks/Week Comments No 0 [...] week 08/28/2022 How often do you attend shinto or shinto serv ices? Never 08/28/2022 Do you belong to any clubs o r organizations such as shinto groups, unions, fraRelinkLabs or athletic groups, or school groups? Yes [...] suspected to have Coronavirus/COVID-19? No / Unsure 03/20/2022 4:04 PM EDT documented as of this encounter Miscellaneous Notes * Telephone Encounter - Dawna Love RN - 03/29/2022 2:35 PM EDT FYI: Spoke to Brian physical therapist, states she saw pt today and noticed a retraction of skin to his left ankle. Pt denies injury. States the area is scabbed and dry. She told pt to keep the area clean. Denies any redness or swelling. States pt did not mention any abnormal BS levels. VSS. States she will monitor area. * Telephone Encounter - Abram Saxena - 03/29/2022 2:25 PM EDT VNA CALL Which [facility]NA office is calling? [place] Full name of caller: Cathyricky The caller is A Physical Therapist Is the caller at the patients home?: NO Reason for call: Therapist notice a spot on his left ankle, possible skin tear - the area is dry & scabbing over now. Patient doesn't know it happened. Does caller need an urgent call back? NO Was CONTACT Telephone # obtained above?: YES Fax #: N/A documented in this encounter Plan of Treatment Not on file documented as of this encounter Visit Diagnoses Not on filedocumented in this encounter Additional Health Concerns Infection Onset Date Last Indicated Resolved Time COVID-19 Comment:VNA advised Positive Covid on 02/10/22 02/10/2022 02/16/2022 documented as of this encounter Care Teams Dental Amalgam Processor Relationship Specialty Start Date End Date Marcin Segura MD [address] [place] [address] PCP - General 10/12/1992 Sal Padilla MD [address] [place] [address] Nephrology 08/28/22 Kamlesh Webb [address] [place] [address] Ophthalmology 08/28/22 Chris Donaldson [address] [place] [address] Otolaryngology 08/28/22 Hannah Beckwith PA-C 300 [facility] [address] [place] [phone] Vascular Surgery 08/28/22 Mallika Soares MD [address] [place] [phone] Specialist Pulmonology 08/28/22 documented as of this encounter
--- OUTSIDE RECORDS SUMMARY | 2025-11-02 12:35 | XMS_ITS | Encounter Summary ---
Author Organization [facility] Prior to 09/12/2024 Address [address] [place] [address] Care Team Providers Care Supervisor Metal Furniture Fabrication Name Role Phone Marcin Segura MD Primary Care Provider [phone] Sal Padilla MD Unavailable Unavailable Kamlesh Webb Unavailable Unavailable Chris Donaldson Unavailable Unavailable Hannah Beckwith PA-C Unavailable [phone] Mallika Soares MD Unavailable Encounter Details Date Type Department Care Team Description 10/28/2021 Orders Only [facility] Lung Screening Program [place] [address] [facility] [address] [place] [phone] Jj Nunez MD 299 [facility] [place] [address] [place] [address] Pulmonary nodule/lesion, solitary (Primary Dx) Social History Tobacco Use Types Packs/Day Years [...] week 08/28/2022 How often do you attend religion or holiness serv ices? Never 08/28/2022 Do you belong to any clubs o r organizations such as religion groups, unions, fraBrentwood Media Group or athletic groups, or school groups? Yes [...] place to sleep or slept in a nursing home (including now)? No 08/28/2022 Sex Assigned at Date Recorded Not on file Job Start Date Occupation Industry Not on file Not on file Not on file COVID-19 Exposure Response Date Recorded In the last month, have you been in contact with someone who was confirmed or suspected to have Coronavirus / COVID-19? No / Unsure 10/28/2021 12:48 PM EST documented as of this encounter Plan of Treatment Not on file documented as of this encounter Visit Diagnoses Diagnosis Pulmonary nodule/lesion, solitary- Primary Solitary pulmonary nodule documented in this encounter Additional Health Concerns Infection Onset Date Last Indicated Resolved Time COVID-19 Comment:VNA advised Positive Covid on 02/10/22 02/10/2022 02/16/2022 documented as of this encounter Care Teams Supervisor Metal Furniture Fabrication Relationship Specialty Start Date End Date Marcin Segura MD [address] [place] [address] PCP - General 10/12/1992 Sal Padilla MD [address] [place] [address] Nephrology 08/28/22 Kamlesh Webb [address] [place] [address] Ophthalmology 08/28/22 Chris Donaldson. [address] [place] [address] Otolaryngology 08/28/22 Hannah Beckwith PA-C 300 [facility] [address] [place] [phone] Vascular Surgery 08/28/22 Mallika Soares MD [address] [place] [phone] Specialist Pulmonology 08/28/22 documented as of this encounter
--- OUTSIDE RECORDS SUMMARY | 2025-11-02 12:35 | XMS_ITS | Encounter Summary ---
Author Organization [employer] [facility] Prior to 09/12/2024 Address [address] [place] [address] Care Team Providers Care Guidance Director Name Role Phone Marcin Segura MD Primary Care Provider [phone] Sal Padilla MD Unavailable Unavailable Kamlesh Webb Unavailable Unavailable Chris Donaldson Unavailable Unavailable Hannah Beckwith PA-C Unavailable [phone] Mallika Soares MD Unavailable Encounter Details Date Type Department Care Team Description 12/06/2021 Floor Assembler Report Medical Records [address] [place] [phone] [place] [address] Social History Tobacco Use Types Packs/Day Years [...] How often do you attend yazidi or restorationism serv ices? Never 08/28/2022 Do you belong [...] have Coronavirus / COVID-19? No / Unsure 11/24/2021 8:10 AM EST documented as of this encounter Plan of Treatment Not on file documented as of this encounter Visit Diagnoses Not on filedocumented in this encounter Additional Health Concerns Infection Onset Date Last Indicated Resolved Time COVID-19 Comment:VNA advised Positive Covid on 02/10/22 02/10/2022 02/16/2022 documented as of this encounter Care Teams Guidance Director Relationship Specialty Start Date End Date Marcin Segura MD [address] [place] [address] PCP - General 10/12/1992 Sal Padilla MD [address] [place] [address] Nephrology 08/28/22 Kamlesh Webb [address] [place] [address] Ophthalmology 08/28/22 Chris Donaldson [address] [place] [address] Otolaryngology 08/28/22 Hannah Beckwith PA-C 300 [facility] [address] [place] [phone] Vascular Surgery 08/28/22 Mallika Soares MD [address] [place] [phone] Specialist Pulmonology 08/28/22 documented as of this encounter
--- OUTSIDE RECORDS SUMMARY | 2025-11-02 12:35 | XMS_ITS | Encounter Summary ---
Author Organization [facility] Prior to 09/12/2024 Address [address] [place] [address] Care Team Providers Care Zipper Trimmer Hand Name Role Phone Marcin Segura MD Primary Care Provider Sal Padilla MD Unavailable Unavailable Kamlesh Webb Unavailable Unavailable Chris Donaldson Unavailable Unavailable Hannah Beckwith PA-C Unavailable [phone] Mallika Soares MD Unavailable Encounter Details Date Type Department Care Team Description 12/12/2022 Nurse Research Report Medical Records [address] [place] [address] [facility] [address] [place] [address] Social History Tobacco Use Types Packs/Day Years [...] week 08/28/2022 How often do you attend nondenominational or jew serv ices? Never 08/28/2022 Do you belong to any clubs o r organizations such as nondenominational groups, unions, fraternal or athletic groups, or [...] suspected to have Coronavirus/COVID-19? No / Unsure 12/11/2022 10:09 AM EST documented as of this encounter Plan of Treatment Not on file documented as of this encounter Visit Diagnoses Not on filedocumented in this encounter Additional Health Concerns Infection Onset Date Last Indicated Resolved Time COVID-19 Comment:VNA advised Positive Covid on 02/10/22 02/10/2022 02/16/2022 documented as of this encounter Care Teams Zipper Trimmer Hand Relationship Specialty Start Date End Date Marcin Segura MD [address] [place] [address] PCP - General 10/12/1992 Sal Padilla MD [address] [place] [address] Nephrology 08/28/22 Kamlesh Webb [address] [place] [address] Ophthalmology 08/28/22 Chris Donaldson [address] [place] [address] Otolaryngology 08/28/22 Hannah Beckwith PA-C 300 [facility] [address] [place] [phone] Vascular Surgery 08/28/22 Mallika Soares MD [address] [place] [phone] Specialist Pulmonology 08/28/22 documented as of this encounter
--- OUTSIDE RECORDS SUMMARY | 2025-11-02 12:35 | XMS_ITS | Encounter Summary ---
Author Organization [facility] Prior to 09/12/2024 Address [address] [place] [address] Care Team Providers Care Sports Medicine Trainer Name Role Phone Marcin Segura MD Primary Care Provider [phone] Sal Padilla MD Unavailable Unavailable Kamlesh Webb Unavailable Unavailable Chris Donaldson Unavailable Unavailable Hannah Beckwith PA-C Unavailable Mallika Soares MD Unavailable Encounter Details Date Type Department Care Team Description 02/23/2022 Release of Information Medical Records [address] [place] [id number] Abstract, Provider Social History Tobacco Use Types Packs/Day Years [...] week 08/28/2022 How often do you attend holiness or worship serv ices? Never 08/28/2022 Do you belong to any clubs o r organizations such as holiness groups, unions, fraternal or athletic groups, or [...] place to sleep or slept in a long term (including now)? No 08/28/2022 Sex Assigned at Date Recorded Not on file Job Start Date Occupation Industry Not on file Not on file Not on file COVID-19 Exposure Response Date Recorded In the last 10 days, have yo u been in contact with someone who was confirmed or suspected to have Coronavirus/COVID-19? No / Unsure 02/24/2022 1:09 PM EDT documented as of this encounter Plan of Treatment Not on file documented as of this encounter Visit Diagnoses Not on filedocumented in this encounter Additional Health Concerns Infection Onset Date Last Indicated Resolved Time COVID-19 Comment:[facility] advised Positive Covid on 02/10/22 02/10/2022 02/16/2022 documented as of this encounter Care Teams Sports Medicine Trainer Relationship Specialty Start Date End Date Marcin Segura MD [address] [place] [address] PCP - General 10/12/1992 Sal Padilla MD [address] [place] [address] Nephrology 08/28/22 Kamlesh Webb [address] [place] [address] Ophthalmology 08/28/22 Chris Donaldson [address] [place] [address] Otolaryngology 08/28/22 Hnanah Beckwith PA-C [address] [facility] [address] [place] [phone] Vascular Surgery 08/28/22 Mallika Soares MD [address] [place] [phone] Specialist Pulmonology 08/28/22 documented as of this encounter
--- OUTSIDE RECORDS SUMMARY | 2025-11-02 12:35 | XMS_ITS | Encounter Summary ---
Author Organization [employer] [facility] Prior to 09/12/2024 Address [address] [place] [address] Care Team Providers Care Erp Specialist Name Role Phone Marcin Segura MD Primary Care Provider [phone] Sal Padilla MD Unavailable Unavailable Kamlesh Webb Unavailable Unavailable Chris Donaldson Unavailable Unavailable Hannah Beckwith PA-C Unavailable [phone] Mallika Soares MD Unavailable Encounter Details Date Type Department Care Team Description 08/15/2012 Medical Scientific Liaison Report Medical Records [address] [place] [id number] Chris Donaldson Social History Tobacco Use Types [...] week 08/28/2022 How often do you attend tenriism or church serv ices? Never 08/28/2022 Do you belong to any clubs o r organizations such as tenriism groups, unions, fraternal or athletic groups, or [...] documented as of this encounter Care Teams Erp Specialist Relationship Specialty Start Date End Date Marcin Segura MD [address] [place] [address] PCP - General 10/12/1992 Sal Padilla MD [address] [place] [address] Nephrology 08/28/22 Kamlesh Webb [address] [place] [address] Ophthalmology 08/28/22 Chris Donaldson [address] [place] [address] Otolaryngology 08/28/22 Hannah Beckwith PA-C [address] [facility] [address] [place] [phone] Vascular Surgery 08/28/22 Mallika Soares MD [address] [place] [phone] Specialist Pulmonology 08/28/22 documented as of this encounter
--- OUTSIDE RECORDS SUMMARY | 2025-11-02 12:35 | XMS_ITS | Clinical Summary ---
Author Organization [facility] [address] [facility] Address [address] [place] [address] Phone Care Team Providers Care Bending Frame Operator Name Role Phone Marcin Segura MD Primary Care Provider [phone] Allergies No known active allergies Medications FREESTYLE LANCETS MISC Upto three times a day 12/11/19 23 Active blood sugar diagnostic (FreeStyle Lite Strips) test strip USE 1 STRIP BY IN VITRO ROUTE 4 TIMES A DAY 07/02/20 23 Active blood-glucose meter kit Check up to three times a day 12/11/19 23 Active multivit-min/gely kathy fumarate (MULTI VITAMIN ORAL) one tablet daily Active aspirin 81 mg chewable tablet 1 TABLET DAILY Active latanoprost (XALATAN) 0.005 % ophthalmic solution 1 Drop at bedtime. Active memantine (NAMENDA XR) 28 mg extended release capsule Take by mouth daily (with breakfast). Active nystatin (MYCOSTATIN) cream Apply to area twice a day 02/18/20 22 Active pramipexole (MIRAPEX) 0.125 mg tablet Take 2 Tabs by mouth at bedtime. Active timolol (TIMOPTIC) 0.5 % ophthalmic solution 1 Drop every morning. Active tobramycin-dexAM ETHasone (TOBRADEX) ophthalmic suspension 4 Drops 2 times daily. 08/30/20 20 Active gabapentin (NEURONTIN) 600 mg tablet TAKE 1 TABLET BY MOUTH THREE TIMES A DAY 270 tablet 1 08/26/20 25 Active fluticasone propionate (FLONASE) 50 mcg/actuation nasal spray SPRAY 2 SPRAYS INTO EACH NOSTRIL EVERY DAY SHAKE GENTLY. CLEAN TIP AND REPLACE CAP AFTER USE. 48 mL 1 08/26/20 25 Active isosorbide mononitrate (IMDUR) 30 mg 24 hr tabletIndication s:Essential (primary) hypertension,Hyp erlipidemia, unspecified Take 1 tablet (30 mg total) by mouth 1 (one) time each day. 90 tablet 1 09/02/20 25 Active PARoxetine (PAXIL) 30 mg tabletIndication s:Type 2 diabetes mellitus with other diabetic neurological complication (CMS/HCC V24, CMS/HCC V28) Take 2 tablets (60 mg total) by mouth 1 (one) time each day in the morning. 180 tablet 1 09/02/20 25 Active metFORMIN XR (GLUCOPHAGE-XR) 500 mg 24 hr tablet Take 2 tablets (1,000 mg total) by mouth 2 (two) times a day with meals. 360 tablet 1 09/02/20 25 Active buPROPion SR (WELLBUTRIN SR) 200 mg 12 hr tabletIndication s:Adjustment disorder with mixed anxiety and depressed mood Take 1 tablet (200 mg total) by mouth 1 (one) time each day with breakfast. 90 tablet 1 10/05/20 25 Active atenoloL (TENORMIN) 50 mg tablet Take 1 tablet (50 mg total) by mouth 1 (one) time each day. 90 tablet 1 10/05/20 25 Active atorvastatin (LIPITOR) 10 mg tablet Take 1 tablet (10 mg total) by mouth 1 (one) time each day. 90 tablet 1 10/05/20 25 Active furosemide (LASIX) 20 mg tablet TAKE 1 TABLET BY MOUTH EVERY OTHER DAY 45 tablet 1 10/12/20 25 Active atorvastatin (LIPITOR) 10 mg tablet Take 1 tablet (10 mg total) by mouth 1 (one) time each day. 04/23/20 24 025 Discontinued(Re order) atenoloL (TENORMIN) 50 mg tablet TAKE 1 TABLET BY MOUTH EVERY DAY 90 tablet 1 04/09/20 25 025 Discontinued(Re order) furosemide (LASIX) 20 mg tablet TAKE 1 TABLET BY MOUTH EVERY OTHER DAY 45 tablet 1 04/20/20 25 025 Discontinued buPROPion SR (WELLBUTRIN SR) 200 mg 12 hr tabletIndication s:Adjustment disorder with mixed anxiety and depressed mood Take 1 tablet (200 mg total) by mouth 1 (one) time each day with breakfast. 90 tablet 1 09/02/20 25 025 Discontinued(Re order) Active Problems Problem Noted Date Diagnosed Date Alzheimer's dementia 10/14/2024 Overview (10/14/2024): Dr. Morton, evaluation January 27 Parkinson's disease 10/14/2024 Overview (10/14/2024): Dr. Morton, evaluation January 27 Lab test negative for COVID-19 virus 04/29/2021 Episode of recurrent major depressive disorder 1 Severe obesity (BMI 35.0-39.9) with comorbidity 07/29/2019 Osteoarthritis of left knee 08/21/2018 Primary osteoarthritis of right knee 08/21/2018 Adjustment disorder with mixed anxiety and depre ssed mood 07/10/2017 Parotid gland enlargement 08/10/2016 Vitamin B12 deficiency 10/05/2015 DM (diabetes mellitus), type 2 with peripheral vascular complications 06/29/2015 Overview (10/14/2024): Erectile dysfunction 09/27/09 notes Cataract 06/29/2015 Overview (10/14/2024): Bilaterally, 05/06/2018 [facility] Type 2 diabetes mellitus with cataract 5 Diabetes mellitus type 2 with neurological manif estations 02/03/2014 Cord compression 01/18/2011 Spinal stenosis in cervical region 12/16/2010 Overview (10/14/2024): Cervical radiculitis Carpal tunnel syndrome 12/02/2010 Fatty liver 11/28/2010 ED (erectile dysfunction) 09/27/2009 Alcohol abuse 09/08/2009 Obesity 09/08/2009 Dyspnea 07/28/2009 KENDALL (obstructive sleep apnea) 05/20/2009 Known medical problems 05/28/2006 Overview (10/14/2024): stable as of 01/16; rpt CT 1 year Tobacco use disorder 05/28/2006 Hypertension 02/16/2006 Hyperlipidemia 02/16/2006 Encounters Date Type Department Care Team Description 09/18/2025 [facility] [phone] Marcin Segura MD 09/17/2025 1:30 PM EST Treatment [facility] [address] [phone] Amaury Valderrama, PT Parkinson's disease without dyskinesia, with fluctuating manifestations ([facility] V24, [facility] V28) (Primary Dx) 09/02/2025 11:00 AM EDT Office Visit Internal Medicine - [address] [place] [phone] Marcin Segura MD Type 2 diabetes mellitus with other diabetic neurological complication ([facility] V24, [facility] V28) (Primary Dx); Adjustment disorder with mixed anxiety and depressed mood; Essential (primary) hypertension; Hyperlipidemia, unspecified; Immunization due; Urinary hesitancy; Gait instability 08/25/2025 [facility] [phone] Marcin Segura MD 08/19/2025 Results Follow-Up Internal Medicine - [address] [phone] Angelique Hodge MA from Last 3 Months Immunizations Immunization Administration Dates Next Due Influenza Quadravalent, MDCK , 0.5ml, with preservative (Flucelvax) 6mo and older 09/10/2017 Influenza trivalent, 0.5mL ( Fluad) 65yo and older 09/02/2025,08/29/2023,09/26/2022,10/28,09/20/2020,09/23/2019,09/23/2018 ,09/07/2014,07/28/2009 Influenza trivalent, with pr eservative (Fluzone; Afluria) [...] TOTAL SCREENING; COMMENT: 0.5 COLONOSCOPY 11/12/2006 PROCEDURE: [place] COLONOSCOPY STOMA DX INCLUDING COLLJ SPEC SPX; COMMENT: Pleet; TA; rpt 4 yr COLONOSCOPY W/ BIOPSIES 04/28/2011 PROCEDURE: [place] COLONOSCOPY W/BIOPSY SINGLE/MULTIPLE; COMMENT: Pleet; one small polyp. repeat 5 yrs. OTHER SURGICAL HISTORY PROCEDURE: [place] ARTHRD ANT INTERBODY MIN DSC CRV BELOW C2 OTHER SURGICAL HISTORY PROCEDURE: [place] ARTHRD CARPO/METACARPAL JT THUMB W/WO INT FIXJ TOTAL KNEE ARTHROPLASTY PROCEDURE: [place] ARTHRP KNE CONDYLE&PLATU MEDIAL&LAT COMPARTMENTS Medical History Medical History Date Comments Swelling, mass, or lump in chest 05/28/2006 DX:Swelling, mass, or lump in chest Parkinson's disease ([facility] V24, [facility] V28) 2015 DX:Parkinson's disease (HCC) ; COMMENT: Dr. Morton, evaluation January 27 Alzheimer's dementia ([facility] V24, [facility] V28) 2015 DX:Alzheimer's dementia ([facility] ); COMMENT: Dr. Morton, evaluation January 27 Hyperlipidemia 02/16/2006 DX:Hyperlipidemi a Diabetes mellitus type 2 wit h neurological manifestations ([facility] V24, [facility] V28) 02/03/2014 DX:Diabetes mellitus type 2 with neurological manifestations (HCC) KENDALL (obstructive sleep apnea) 05/20/2009 DX :KENDALL (obstructive sleep apnea) Type 2 diabetes mellitus wit h cataract ([facility] V24, [facility] V28) 06/29/2015 DX:Type 2 diabetes mellitus with cataract (HCC) DM (diabetes mellitus), type 2 with peripheral vascular complications ([facility] V24, [facility] V28) 06/29/2015 DX:DM (diabetes mellitus), type 2 with peripheral vascular complications (HCC); COMMENT: Erectile dysfunction 09/27/09 notes Cataract 06/29/2015 DX:Cataract; COM MENT: Bilaterally, 05/06/2018 [facility] Care Adjustment disorder with mix ed [...] care for your loved ones. For example, housekeeper child care or elderly care for an older adult? [...] Date Recorded What is your living situation? Unrecognized valu e 03/03/2025 Sex and Gender Information Value Date Recorded Sex Assigned at Male 12/14/2024 10:12 AM EST Legal Sex Male 4:20 AM EST Gender Identity Male 12/14/2024 10:12 AM EST Sexual Orientation Straight 12/14/2024 10 :12 AM EST Last Filed Vital Signs Vital Sign Reading Time Taken Comments Blood Pressure 126/74 09/02/2025 11:13 AM EDT Pulse 74 09/02/2025 11:13 AM EDT Temperature - - Respiratory Rate - - Oxygen Saturation - - Inhaled Oxygen Concentration - - Weight 125 kg (275 lb) 09/02/2025 11:13 AM EDT Height 180.3 cm (5' 11 ) 09/02/2025 11:13 AM EDT Body Mass Index 38.35 09/02/2025 11:13 AM EDT Plan of Treatment Upcoming Encounters Date Type Department Care Team (Late st Contact Info) Description 12/15/2025 10:00 AM EST Consult Internal Medicine - [address] [phone] Marcin Segura MD [address] [place] [address] 03/03/2026 9:15 AM EDT Office Visit Internal Medicine - [address] [phone] Marcin Segura MD [address] [place] [phone] Health Maintenance Due Date Last Done Comments Diabetes: Annual Foot Exam 1960 Hepatitis A Vaccines (1 of 2 - Risk 2-dose series) 1969 Zoster Vaccines (1 of 2) 2000 RSV Immunization Adult Patients (1 - 1-dose 75+ series) 2025 COVID-19 Vaccine ( season) 2025 01/30/2022, 03/29/2021, 02/28/2021 Diabetes: Annual Retina Eye Exam 01/16/2026 01/16/2025 Diabetes: Blood Sugar Control Test (HGBA1C) 02/17/2026 08/19/2025, 06/18/2024, 06/18/2024 Medicare Annual Wellness Visit 02/27/2026 02/27/2025 Falls Risk Assessment 03/03/2026 03/03/2025, 025 Social Influencers of Health Screening 03/03/2026 03/03/2025 Diabetes: Annual Urine Albumin-Creatinine Ratio (uACR) 08/19/2026 08/19/2025, 03/05/2023 Diabetes: Annual GFR (Glomerular Filtration Rate) 08/19/2026 08/19/2025, 06/18/2024, 06/18/2024, Additional history exists Hypertension/CHF/CAD Annual BMP Blood Test 08/19/2026 08/19/2025, 06/18/2024, 06/18/2024, Additional history exists DTaP,Tdap,and Td Vaccines (2 - Td or Tdap) 11/21/2026 11/21/2016 Colorectal Cancer Screening: Colonoscopy 02/13/2029 02/14/2024 Cholesterol Screening (Lipid Panel) 08/19/2030 08/19/2025, 06/18/2024, 06/18/2024 Hepatitis C Screening Completed 05/11/2008 Abdominal Aortic Aneurysm (AAA) Screen Completed 08/27/2009 Pneumococcal Vaccine: 50+ Years Completed 09/20/2020, 01/09/2018 Depression Screening Completed 03/03/2025 Influenza Vaccine Completed 09/02/2025, , 08/29/2023, Additional history exists HIB Vaccines Aged Out No longer eligi [...] Procedure Name Priority Date/Time Associated Diagnosis Comments MICROALBUMIN CREATININE URINE RATIO Routine 08/19/2025 10:11 AM EDT Urinary hesitancy Encounter for screening for malignant neoplasm of prostate Diabetes mellitus type 2 with neurological manifestations (CMS/HCC V24, CMS/HCC V28) COMPREHENSIVE METABOLIC PANEL Routine 08/19/2025 9:27 AM EDT Diabetes mellitus type 2 with neurological manifestations (CMS/HCC V24, CMS/HCC V28) HEMOGLOBIN A1C Routine 08/19/2025 9:27 AM EDT Diabetes mellitus type 2 with neurological manifestations (CMS/HCC V24, CMS/HCC V28) LIPID PANEL WITH REFLEX TO DIRECT LDL Routine 08/19/2025 9:27 AM EDT Diabetes mellitus type 2 with neurological manifestations (CMS/HCC V24, CMS/HCC V28) PROSTATE SPECIFIC ANTIGEN SCREEN Routine 08/19/2025 9:27 AM EDT Urinary hesitancy Encounter for screening for malignant neoplasm of prostate EXTERNAL DIABETIC RETINA EYE EXAM 01/16/2025 COLONOSCOPY Routine 02/14/2024 ABDOMINAL AORTIC ANEURYSM SCRREN Routine 08/27/2009 HEPATITIS C SCREENING Routine 05/11/2008 from Last 3 Months or Most Recently Relevant to Health Maintenance Results * Microalbumin creatinine urine ratio (08/19/2025 10:11 AM EDT) Creatinine, Urine 74.0 mg/dL LAB CHEMISTRY METHOD 08/19/2025 12:[address] [facility] Microalb, Ur 13.2 0.0 - 29.0 mg/L LAB CHEMISTRY METHOD 08/19/2025 12:[address] [facility] Microalb/Creat Ratio 18 <30 mg/g creat LAB CHEMISTRY METHOD 08/19/2025 12:[address] [facility] Urine Urine specimen obtained by clean catch procedure / Unknown Non-blood Collection / Unknown 08/19/2025 10:11 AM EDT 08/19/2025 10:11 AM EDT us Marcin Segura MD LAB URINE ORDERABLES Final Res ult [facility] [address] [place] [address], * Prostate specific antigen screen (08/19/2025 9:27 AM EDT) PSA 0.34 0.00 - 4.00 ng/mL LAB CHEMISTRY METHOD 08/19/2025 12:[address] [facility] Blood Venous blood specimen / Unknown Venipuncture / Unknown 08/19/2025 9:27 AM EDT 08/19/2025 9:[address] [facility] - 08/19/2025 12:58 PM EDT The Siemens Advia Centaur Chemiluminescent Immunoassay is used. Results obtained with different assay methods or kits cannot be used interchangeably. Results cannot be interpreted as absolute evidence of the presence or absence of malignant disease. us Marcin Segura MD LAB BLOOD ORDERABLES Final Res ult [facility] [address] [place] [address], * (ABNORMAL) Lipid panel with reflex to direct LDL (08/19/2025 9:27 AM EDT) Pathologist [facility] Cholesterol 211(H) 0 - 200 mg/dL LAB CHEMISTRY METHOD 08/19/2025 11:[address] [facility] Triglycerides 130 0 - 150 mg/dL LAB CHEMISTRY METHOD 08/19/2025 11:[address] [facility] HDL 74 >=40 mg/dL LAB CHEMISTRY METHOD 08/19/2025 11:[address] [facility] LDL Calculated 111(H) 0 - 100 mg/dL LAB CHEMISTRY METHOD 08/19/2025 11:[address] [facility] Comment:Estimated LDL Calcul ated using equation: Total cholesterol - HDL cholesterol - (Triglycerides/5) VLDL Cholesterol Michael 26 mg/dL LAB CHEMISTRY METHOD 08/19/2025 11:[address] [facility] Non HDL Chol. (LDL+VLDL) 137 <145 mg/dL LAB CHEMISTRY METHOD 08/19/2025 11:[address] [facility] Chol/HDL Ratio 2.9 0.0 - 4.4 LAB CHEMISTRY METHOD 08/19/2025 11:[address] [facility] Blood Venous blood specimen / Unknown Venipuncture / Unknown 08/19/2025 9:27 AM EDT 08/19/2025 9:27 AM EDT us Marcin Segura MD LAB BLOOD ORDERABLES Final Res ult Performing Organization Address [facility] Co de Phone Number [facility] [address] [place] [address], [place] [phone] * (ABNORMAL) Hemoglobin A1c (08/19/2025 9:27 AM EDT) Hemoglobin A1C 6.8(H) <6.5 % LAB CHEMISTRY METHOD 08/19/2025 12:[address] [facility] Mean Bld Glu Estim. 148 mg/dL LAB CHEMISTRY METHOD 08/19/2025 12:[address] [facility] Blood Venous blood specimen / Unknown Venipuncture / Unknown 08/19/2025 9:27 AM EDT 08/19/2025 9:27 AM EDT us Marcin Segura MD LAB BLOOD ORDERABLES Final Res ult Performing Organization Address City/[facility]/ZIP Co de Phone Number [facility] [address] [place] [address], [place] [phone] * (ABNORMAL) Comprehensive metabolic panel (08/19/2025 9:27 AM EDT) Sodium 137 133 - 145 mmol/L LAB CHEMISTRY METHOD 08/19/2025 11:[address] [facility] Potassium 5.0 3.5 - 5.5 mmol/L LAB CHEMISTRY METHOD 08/19/2025 11:[address] [facility] Chloride 105 96 - 110 mmol/L LAB CHEMISTRY METHOD 08/19/2025 11:51 AM [facility] CO2 25 21 - 32 mmol/L LAB CHEMISTRY METHOD 08/19/2025 11:51 AM [facility] Anion Gap 7 3 - 11 LAB CHEMISTRY METHOD 08/19/2025 11:51 AM [facility] Glucose 153(H) 70 - 100 mg/dL LAB CHEMISTRY METHOD 08/19/2025 11:51 AM [facility] BUN 16 5 - 25 mg/dL LAB CHEMISTRY METHOD 08/19/2025 11:51 AM [facility] Creatinine 1.26 0.70 - 1.30 mg/dL LAB CHEMISTRY METHOD 08/19/2025 11:51 AM [facility] eGFR 59(L) >=60 mL/min/1. 73m2 LAB CHEMISTRY METHOD 08/19/2025 11:51 AM [facility] Comment:Calculation based on the Chronic Kidney Disease Epidemiology Collaboration (CKD-EPI) equation refit without adjustment for race. BUN/Creatinine Ratio 12.7 LAB CHEMISTRY METHOD 08/19/2025 11:51 AM [facility] Calcium 9.8 8.5 - 10.5 mg/dL LAB CHEMISTRY METHOD 08/19/2025 11:51 AM [facility] AST (SGOT) 21 10 - 42 unit/L LAB CHEMISTRY METHOD 08/19/2025 11:51 AM [facility] ALT (SGPT) 14 10 - 60 unit/L LAB CHEMISTRY METHOD 08/19/2025 11:51 AM [facility] Alkaline Phosphatase 113 42 - 121 unit/L LAB CHEMISTRY METHOD 08/19/2025 11:51 AM [facility] Total Protein 7.4 6.0 - 8.0 g/dL LAB CHEMISTRY METHOD 08/19/2025 11:[address] [facility] Albumin 3.9 3.2 - 5.0 g/dL LAB CHEMISTRY METHOD 08/19/2025 11:[address] [facility] Total Bilirubin 0.7 0.0 - 1.4 mg/dL LAB CHEMISTRY METHOD 08/19/2025 11:[address] [facility] Blood Venous blood specimen / Unknown Venipuncture / Unknown 08/19/2025 9:27 AM EDT 08/19/2025 9:27 AM EDT Marcin Segura MD LAB BLOOD ORDERABLES Final Res ult [facility] [address] [place] [address], [place] [phone] * External Diabetic Retina Eye Exam Report (01/16/2025) Anatomical Region Laterality Modality Ultrasound Provider [facility] US PROCEDURES Final Result * Colonoscopy (02/14/2024) Colonoscopy no interpretation , abstracted Anatomical Region Laterality Modality Other Historical Provider HEALTH MAINTENANCE Final Result * Abdominal Aortic Aneurysm Screen (08/27/2009) Abdominal Aortic Aneurysm (AAA) Screening abstracted Anatomical Region Laterality Modality Other Historical Provider HEALTH MAINTENANCE Final Result * Hepatitis C Screening (05/11/2008) Hepatitis C Screening abstracted Historical Provider HEALTH MAINTENANCE Final Result from Last 3 Months or Most Recently Relevant to Health Maintenance Insurance [employer] Care Teams Bending Frame Operator Relationship Specialty Start Date End Date Marcin Segura MD [address] [place] [id number] PCP - General 10/12/1992
--- OUTSIDE RECORDS SUMMARY | 2025-11-02 12:35 | XMS_ITS | Encounter Summary ---
Author Organization [facility] Prior to 09/12/2024 Address [address] [place] [address] Care Team Providers Care Personal Clothing Laundry Aide Name Role Phone Marcin Segura MD Primary Care Provider [phone] Sal Padilla MD Unavailable Unavailable Kamlesh Webb Unavailable Unavailable Chris Donaldson Unavailable Unavailable Hannah Beckwith PA-C Unavailable [phone] Mallika Soares MD Unavailable Encounter Details Date Type Department Care Team Description 04/24/2019 Hospital Medical Records [address] [place] [address] Gopal Figueroa Social History Tobacco Use Types Packs/Day Years [...] week 08/28/2022 How often do you attend jainism or yarsanism serv ices? Never 08/28/2022 Do you belong to any clubs o r organizations such as jainism groups, unions, fraternal or athletic groups, or [...] place to sleep or slept in a halfway (including now)? No 08/28/2022 Sex Assigned at [...] documented as of this encounter Care Teams Personal Clothing Laundry Aide Relationship Specialty Start Date End Date Marcin Segura MD [address] [place] [address] PCP - General 10/12/1992 Sal Padilla MD [address] [place] [address] Nephrology 08/28/22 Kamlesh Webb [address] [place] [address] Ophthalmology 08/28/22 Chris Donaldson [address] [place] [address] Otolaryngology 08/28/22 Hannah Beckwith PA-C [address] [facility] [address] [place] [phone] Vascular Surgery 08/28/22 Mallika Soares MD [address] [place] [phone] Specialist Pulmonology 08/28/22 documented as of this encounter
--- OUTSIDE RECORDS SUMMARY | 2025-11-02 12:35 | XMS_ITS | Encounter Summary ---
Author Organization [facility] Prior to 09/12/2024 Address [address] [place] [address] Care Team Providers Care Personal Care Assistant Name Role Phone Marcin Segura MD Primary Care Provider [phone] Sal Padilla MD Unavailable Unavailable Kamlesh Webb Unavailable Unavailable Chris Donaldson Unavailable Unavailable Hannah Beckwith PA-C Unavailable [phone] Mallika Soares MD Unavailable Encounter Details Date Type Department Care Team Description 12/11/2022 Orders Only [facility] Lung Screening Program [place] 299 [facility] [address] [place] [phone] Jj Nunez MD 299 [facility] [place] [address] [place] [address] History of tobacco abuse Social History Tobacco [...] week 08/28/2022 How often do you attend sikh or scientology serv ices? Never 08/28/2022 Do you belong to any clubs o r organizations such as sikh groups, unions, fraOomnitza or athletic groups, or school groups? Yes [...] CT LOW DOSE LUNG SCREEN ANNUAL Routine 12/10/2022 History of tobacco abuse documented in this encounter Results * CT LOW DOSE LUNG SCREEN ANNUAL (12/10/2022) Jj Nunez MD CT SCANS documented in this encounter Visit Diagnoses Diagnosis History of tobacco abuse Personal history of tobacco use, presenting hazards to health documented in this encounter Additional Health Concerns Infection Onset Date Last Indicated Resolved Time COVID-19 Comment:VNA advised Positive Covid on 02/10/22 02/10/2022 02/16/2022 documented as of this encounter Care Teams Personal Care Assistant Relationship Specialty Start Date End Date Marcin Segura MD [address] [place] [address] PCP - General 10/12/1992 Sal Padilla MD [address] [place] [address] Nephrology 08/28/22 Kamlesh Webb [address] [place] [address] Ophthalmology 08/28/22 Chris Donaldson [address] [place] [address] Otolaryngology 08/28/22 Hannah Beckwith PA-C [address] [facility] [address] [place] [phone] Vascular Surgery 08/28/22 Mallika Soares MD [address] [place] [phone] Specialist Pulmonology 08/28/22 documented as of this encounter
--- OUTSIDE RECORDS SUMMARY | 2025-11-02 12:35 | XMS_ITS | Encounter Summary ---
Author Organization [facility] Prior to 09/12/2024 Address [address] [place] [address] Care Team Providers Care Rn Private Duty Name Role Phone Marcin Segura MD Primary Care Provider [phone] Sal Padilla MD Unavailable Unavailable Kamlesh Webb Unavailable Unavailable Chris Donaldson Unavailable Unavailable Hannah Beckwith PA-C Unavailable [phone] Mallika Soares MD Unavailable Encounter Details Date Type Department Care Team Description 11/18/2021 Orders Only [facility] Thoracic Surgery [place] 299 [facility] [address] [place] [phone] Jj Nunez MD 299 [facility] [place] [address] [place] [phone] Pulmonary nodule/lesion, solitary (Primary Dx) Social History [...] week 08/28/2022 How often do you attend jew or evangelical serv ices? Never 08/28/2022 Do you belong to any clubs o r organizations such as jew groups, unions, fraCohealo or athletic groups, or school groups? Yes [...] place to sleep or slept in a group home (including now)? No 08/28/2022 Sex Assigned [...] documented as of this encounter Care Teams Rn Private Duty Relationship Specialty Start Date End Date Marcin Segura MD [address] [place] [address] PCP - General 10/12/1992 Sal Padilla MD [address] [place] [address] Nephrology 08/28/22 Kamlesh Webb [address] [place] [address] [place] [address] Ophthalmology 08/28/22 Chris Donaldson [address] [place] [address] Otolaryngology 08/28/22 Hannah Beckwith PA-C 300 [facility] [address] [place] [phone] Vascular Surgery 08/28/22 Mallika Soares MD [address] [place] [phone] Specialist Pulmonology 08/28/22 documented as of this encounter
--- OUTSIDE RECORDS SUMMARY | 2025-11-02 12:35 | XMS_ITS | Encounter Summary ---
Author Organization [facility] Prior to 09/12/2024 Address [address] [place] [address] Care Team Providers Care Drywall Metal Stud Worker Name Role Phone Marcin Segura MD Primary Care Provider [phone] Sal Padilla MD Unavailable Unavailable Kamlesh Webb Unavailable Unavailable Chris Donaldson Unavailable Unavailable Hannah Beckwith PA-C Unavailable [phone] Mallika Soares MD Unavailable Encounter Details Date Type Department Care Team Description 08/27/2014 Billet Sawyer Report Medical Records [address] [place] [address] Mindi Self MD Social History Tobacco Use Types Packs/Day Years Used Date Smoking Tobacco: Former Cigarettes 0.5 40 Q uit: 08/31/2013 Smokeless Tobacco: Never Comments:started at 16 years [...] week 08/28/2022 How often do you attend pentecostalism or temple serv ices? Never 08/28/2022 Do you belong to any clubs o r organizations such as pentecostalism groups, unions, fraternal or athletic groups, or [...] documented as of this encounter Care Teams Drywall Metal Stud Worker Relationship Specialty Start Date End Date Marcin Segura MD [address] [place] [address] PCP - General 10/12/1992 Sal Padilla MD [address] [place] [address] Nephrology 08/28/22 Kamlesh Webb [address] [place] [address] Ophthalmology 08/28/22 Chris Donaldson [address] [place] [address] Otolaryngology 08/28/22 Hannah Beckwith PA-C 300 [facility] [address] [place] [phone] Vascular Surgery 08/28/22 Mallika Soares MD [address] [place] [phone] Specialist Pulmonology 08/28/22 documented as of this encounter
--- OUTSIDE RECORDS SUMMARY | 2025-11-02 12:35 | XMS_ITS | Encounter Summary ---
Author Organization [facility] Prior to 09/12/2024 Address [address] [place] [address] Care Team Providers Care Lumber Salvager Name Role Phone Marcin Segura MD Primary Care Provider [phone] Sal Padilla MD Unavailable Unavailable Kamlesh Webb Unavailable Unavailable Chris Donaldson Unavailable Unavailable Hannah Beckwith PA-C Unavailable [phone] Mallika Soares MD Unavailable Encounter Details Date Type Department Care Team Description 07/24/2013 Automotive Service Advisor Report Medical Records [address] [place] [address] Mindi Self MD Social History Tobacco Use [...] week 08/28/2022 How often do you attend latter-day or nondenominational serv ices? Never 08/28/2022 Do you belong to any clubs o r organizations such as latter-day groups, unions, fraternal or athletic groups, or [...] documented as of this encounter Care Teams Lumber Salvager Relationship Specialty Start Date End Date Marcin Segura MD [address] [place] [address] PCP - General 10/12/1992 Sal Padilla MD [address] [place] [address] Nephrology 08/28/22 Kamlesh Webb [address] [place] [address] Ophthalmology 08/28/22 Chris Donaldson [address] [place] [address] Otolaryngology 08/28/22 Hannah Beckwith PA-C 300 [facility] [address] [place] [address] Vascular Surgery 08/28/22 Mallika Soares MD [address] [place] [phone] Specialist Pulmonology 08/28/22 documented as of this encounter
--- OUTSIDE RECORDS SUMMARY | 2025-11-02 12:35 | XMS_ITS | Encounter Summary ---
Author Organization [facility] Prior to 09/12/2024 Address [address] [place] [address] Care Team Providers Care Actionscript Developer Name Role Phone Marcin Segura MD Primary Care Provider [phone] Sal Padilla MD Unavailable Unavailable Kamlesh Webb Unavailable Unavailable Chris Donaldson Unavailable Unavailable Hannah Beckwith PA-C Unavailable [phone] Mallika Soares MD Unavailable Encounter Details Date Type Department Care Team Description 09/25/2011 Eye Director Of Optimization Report Medical Records [address] [place] [address] Amaury Echeverria Social History Tobacco Use Types Packs/Day Years [...] week 08/28/2022 How often do you attend mandaeism or quaker serv ices? Never 08/28/2022 Do you belong to any clubs o r organizations such as mandaeism groups, unions, fraternal or athletic groups, or [...] documented as of this encounter Care Teams Actionscript Developer Relationship Specialty Start Date End Date Marcin Segura MD [address] [place] [address] PCP - General 10/12/1992 Sal Padilla MD [address] [place] [address] Nephrology 08/28/22 Kamlesh Webb [address] [place] [address] Ophthalmology 08/28/22 Chris Donaldson [address] [place] [address] Otolaryngology 08/28/22 Hannah Beckwith PA-C 300 [facility] [address] [place] [phone] Vascular Surgery 08/28/22 Mallika Soares MD [address] [place] [phone] Specialist Pulmonology 08/28/22 documented as of this encounter
--- OUTSIDE RECORDS SUMMARY | 2025-11-02 12:35 | XMS_ITS | Encounter Summary ---
Author Organization [facility] Prior to 09/12/2024 Address [address] [place] [address] Care Team Providers Care Coal Screener Name Role Phone Marcin Segura MD Primary Care Provider [phone] Sal Padilla MD Unavailable Unavailable Kamlesh Webb Unavailable Unavailable Chris Donaldson Unavailable Unavailable Hannah Beckwith PA-C Unavailable [phone] Mallika Soares MD Unavailable Encounter Details Date Type Department Care Team Description 01/10/2016 Orders Only Physiatry - [address] [address] Elinor Cheema MD [address] [place] [address] [place] [address] Closed fracture of pelvic rim, initial encounter (Primary Dx) Social History Tobacco Use Types [...] week 08/28/2022 How often do you attend spiritism or jainism serv ices? Never 08/28/2022 Do you belong to any clubs o r organizations such as spiritism groups, unions, fraternal or athletic groups, or [...] on file documented as of this encounter Results * NUCLEAR SCAN OF SKELETON (BONE SCAN) (01/13/2016 12:44 PM EST) 01/13/2016 2:58 PM EST Narrative [place] OTHER EXTERNAL - 01/13/2016 3:07 PM EST Total body bone scan. History abnormality in the left iliac bone on CT of the lumbosacral spine. Examination was performed with administration of 25.3 mCi of technetium 90 9M MDP. Total body bone scan as well as some spot views of the pelvis were obtained. CT scan obtained on 01/10 16 was reviewed. There is no evidence of abnormal uptake in the left iliac bone to suggest an acute process. There are bilateral areas of increased uptake in the knees, wrists, SI joints, sternoclavicular joints and a.c. joints probably due to osteoarthritis. Conclusions: No evidence of abnormal uptake in the left iliac bone to suggest acute process. Multiple bilateral foci of abnormal uptake suggestive of degenerative arthritis. Procedure Note Donna Rendon MD - 01/13/2016 Total body bone scan. History abnormality in the left iliac bone on CT of the lumbosacralspine. Examination was performed with administration of 25.3 mCi of technetium 909M MDP. Total body bone scan as well as some spot views of the pelvis were obtained. CT scanobtained on 01/10 16 was reviewed. There is no evidence of abnormal uptake in the left iliac bone to suggestan acute process. There are bilateral areas of increased uptake in the knees, wrists, SIjoints, sternoclavicular joints and a.c. joints probably due to osteoarthritis. Conclusions: No evidence of abnormal uptake in the left iliac bone tosuggest acute process. Multiple bilateral foci of abnormal uptake suggestive of degenerativearthritis. Elinor Cheema MD NUCLEAR Performing Organization Address City/[facility] Co de Phone Number MELQUIADES RAMIREZ OTHER EXTERNAL * PTH INTACT (01/11/2016 9:04 AM EST) PTH INTACT 34 14 - 69 pg/mL 01/11/2016 3:01 PM EST [facility] 01/11/2016 9:04 AM EST 01/11/2016 9:05 AM EST Elinor Cheema MD LAB Performing Organization Address [facility] Co de Phone Number [place] [phone] [facility] * IONIZED CALCIUM IN BLOOD (01/11/2016 9:04 AM EST) CALCIUM, IONIZED 5.4 4.5 - 5.6 mg/dL 01/12/2016 6:07 PM EST [facility] Comment: Performed at: RN - [facility] [address] [id number] Poultice Machine Operator: Aurora Arreaga MD, Phone: [phone] 01/11/2016 9:04 AM EST 01/11/2016 9:05 AM EST Elinor Cheema MD LAB Performing Organization Address City/[facility]/ZIP Co de Phone Number [facility] * (ABNORMAL) 25 HYDROXY INCLUDES FRACTIONS IF PERFORMED (01/11/2016 9:04 AM EST) 25-HYDROXY VITAMIN D TOTAL 18(L) 30 - 80 ng/ml 01/12/2016 12:56 PM [facility] Comment: Vitamin D Reference Ranges Deficiency: <20 ng/mL Insufficiency: 20-29 ng/mL Optimal: 30-80 ng/mL High: >80 ng/mL 01/11/2016 9:04 AM EST 01/11/2016 9:05 AM EST Elinor Cheema MD LAB Performing Organization Address [facility] Co de Phone Number [place] [phone] [facility] * (ABNORMAL) BASIC METABOLIC PANEL (01/11/2016 9:04 AM EST) GLUCOSE 170(H) 70 - 100 mg/dL 01/11/2016 3:00 PM [facility] Comment: Reference range applicable to fasting specimens only Based on recommendations from the ADA and AACE, the fasting glucose reference range has been changed to 70-100 mg/dL. This change is effective March 28, 2010 BUN 18 5 - 25 mg/dL 01/11/2016 3:00 PM [facility] CREAT 1.1 0.7 - 1.5 mg/dL 01/11/2016 3:00 PM [facility] GFR > 60 >60 01/11/2016 3:00 PM [facility] Comment: If patient is -Pu[place], multiply result by 1.21 Chronic Kidney Disease: < 60 ml/min/1.73 square meters Kidney Failure: < 15 ml/min/1.73 square meters Sodium 142 133 - 145 mEq/L 01/11/2016 3:00 PM [facility] Potassium 4.7 3.5 - 5.5 mEq/L 01/11/2016 3:00 PM EST [facility] Chloride 103 96 - 108 mEq/L 01/11/2016 3:00 PM EST [facility] CO2 24.9 21.0 - 32.0 mEq/L 01/11/2016 3:00 PM EST [facility] CALCIUM 9.8 8.5 - 10.5 mg/dL 01/11/2016 3:00 PM EST [facility] 01/11/2016 9:04 AM EST 01/11/2016 9:05 AM EST Elinor Cheema MD LAB Performing Organization Address City/State/[facility] Co de Phone Number [facility] [address] [facility] documented in this encounter Visit Diagnoses Diagnosis Closed fracture of pelvic rim, initial encounter- Primary Closed fracture of pelvic rim, initial encounter documented in this encounter Additional Health Concerns Infection Onset Date Last Indicated Resolved Time COVID-19 Comment:[facility]NA advised Positive Covid on 02/10/22 02/10/2022 02/16/2022 documented as of this encounter Care Teams Coal Screener Relationship Specialty Start Date End Date Marcin Segura MD [address] [place] [address] PCP - General 10/12/1992 Sal Padilla MD [address] [place] [address] Nephrology 08/28/22 Kamlesh Webb [address] [place] [address] Ophthalmology 08/28/22 Chris Donaldson [address] [place] [address] Otolaryngology 08/28/22 Hannah Beckwith PA-C 300 [facility] [address] [place] [phone] Vascular Surgery 08/28/22 Mallika Soares MD [address] [place] [phone] Specialist Pulmonology 08/28/22 documented as of this encounter
--- OUTSIDE RECORDS SUMMARY | 2025-11-02 12:35 | XMS_ITS | Encounter Summary ---
Author Organization [facility] [employer] [facility] Prior to 09/12/2024 Address [address] [place] [address] Care Team Providers Care K9 Handler Name Role Phone Marcin Segura MD Primary Care Provider [phone] Sal Padilla MD Unavailable Unavailable Kamlesh Webb Unavailable Unavailable Chris Donaldson Unavailable Unavailable Hannah Beckwith PA-C Unavailable [phone] Mallika Soares MD Unavailable Encounter Details Date Type Department Care Team Description 07/09/2019 Hospital Medical Records [address] [place] [address] Amy Carlos MD Social History Tobacco Use Types Packs/Day [...] week 08/28/2022 How often do you attend buddhist or scientology serv ices? Never 08/28/2022 Do you belong to any clubs o r organizations such as buddhist groups, unions, fraternal or athletic groups, or [...] documented as of this encounter Care Teams K9 Handler Relationship Specialty Start Date End Date Marcin Segura MD [address] [place] [address] PCP - General 10/12/1992 Sal Padilla MD [address] [place] [address] Nephrology 08/28/22 Kamlesh Webb [address] [place] [address] Ophthalmology 08/28/22 Chris Donaldson [address] [place] [address] Otolaryngology 08/28/22 Hannah Beckwith PA-C 300 [facility] [address] [place] [phone] Vascular Surgery 08/28/22 Mallika Soares MD [address] [place] [phone] Specialist Pulmonology 08/28/22 documented as of this encounter
--- OUTSIDE RECORDS SUMMARY | 2025-11-02 12:36 | XMS_ITS | Encounter Summary ---
Author Organization [employer] [facility] Prior to 09/12/2024 Address [address] [place] [address] Care Team Providers Care Public Relations Counselor Name Role Phone Marcin Segura MD Primary Care Provider [phone] Sal Padilla MD Unavailable Unavailable Kamlesh Webb Unavailable Unavailable Chris Donaldson Unavailable Unavailable Hannah Beckwith PA-C Unavailable [phone] Mallika Soares MD Unavailable Encounter Details Date Type Department Care Team Description 12/30/2020 Sales Performance Analyst Report Medical Records [address] [place] [phone] [place] [address] Social History Tobacco Use Types Packs/Day Years Used Date Smoking Tobacco: Every Day Cigarettes Smokeless Tobacco: Never Comments:trying to quit Alcohol Use Standard Drinks/Week Comments No 0 [...] week 08/28/2022 How often do you attend moravian or anabaptist serv ices? Never 08/28/2022 Do you belong to any clubs o r organizations such as moravian groups, unions, fraternal or athletic groups, or [...] documented as of this encounter Care Teams Public Relations Counselor Relationship Specialty Start Date End Date Marcin Segura MD [address] [place] [address] PCP - General 10/12/1992 Sal Padilla MD [address] [place] [address] Nephrology 08/28/22 Kamlesh Webb [address] [place] [address] Ophthalmology 08/28/22 Chris Donaldson [address] [place] [address] Otolaryngology 08/28/22 Hannah Beckwith PA-C 300 [facility] [address] [place] [address] Vascular Surgery 08/28/22 Mallika Soares MD [address] [place] [phone] Specialist Pulmonology 08/28/22 documented as of this encounter
--- OUTSIDE RECORDS SUMMARY | 2025-11-02 12:36 | XMS_ITS | Encounter Summary ---
Author Organization [employer] [facility] Prior to 09/12/2024 Address [address] [place] [address] Care Team Providers Care Picker Operator Name Role Phone Marcin Segura MD Primary Care Provider [phone] Sal Padilla MD Unavailable Unavailable Kamlesh Webb Unavailable Unavailable Chris Donaldson Unavailable Unavailable Hannah Beckwith PA-C Unavailable [phone] Mallika Soares MD Unavailable Encounter Details Date Type Department Care Team Description 01/26/2017 Release of Information Medical Records [address] [place] [address] Abstract, Provider Social History Tobacco Use Types [...] week 08/28/2022 How often do you attend anglican or sikhism serv ices? Never 08/28/2022 Do you belong to any clubs o r organizations such as anglican groups, unions, fraternal or athletic groups, or [...] documented as of this encounter Care Teams Picker Operator Relationship Specialty Start Date End Date Marcin Segura MD [address] [place] [address] PCP - General 10/12/1992 Sal Padilla MD [address] [place] [address] Nephrology 08/28/22 Kamlesh Webb [address] [place] [address] Ophthalmology 08/28/22 Chris Donaldson [address] [place] [address] Otolaryngology 08/28/22 Hannah Beckwith PA-C 300 [facility] [address] [place] [phone] Vascular Surgery 08/28/22 Mallika Soares MD [address] [place] [phone] Specialist Pulmonology 08/28/22 documented as of this encounter
--- OUTSIDE RECORDS SUMMARY | 2025-11-02 12:36 | XMS_ITS ---
Author Name [facility] Organization Unknown Results Test Name/Text Value Interpretation Date Range Source Potassium SerPl-sCnc 4.2 mmol/L Normal 05/24/2024 3.4 - 5 .3 [facility] Clarity Ur Clear Normal 05/24/2024 [facility] Nitrite Ur Ql Strip Negative Normal 05/24/2024 - [facility] Prot Ur Strip-mCnc Negative Normal 05/24/2024 - [facility] Sp Gr Ur Strip 1.004 Normal 05/24/2024 1.003 - 1.03 H HCCT Glucose Ur Strip-mCnc Negative Normal 05/24/2024 - CCT Bilirub Ur Strip-mCnc Negative Normal 05/24/2024 - CCT Color Ur Straw Normal 05/24/2024 H[facility]CT Hgb Ur Ql Strip Negative Normal 05/24/2024 - HHC CT Ketones Ur Strip-mCnc Negative Normal 05/24/2024 - CCT pH Ur Strip 6.0 Normal 05/24/2024 5 - 8 [facility] Leukocyte esterase Ur Ql Strip Negative Normal 05/24/2024 - [facility]CT RDW RBC Auto-Rto 14.3 % Normal 05/24/2024 11.5 - 14.5 H[facility]CT Hct VFr Bld Auto 39.5 % Normal 05/24/2024 39 - 54 HH CCT Basophils/leuk NFr Bld Auto 0.5 % Normal 05/24/2024 [facility] Platelet num Bld Auto Platelets clumped, unable to provide accurate result. Normal 05/24/2024 150 - 450 H[facility]CT MCHC RBC Auto-mCnc 33.4 g/dL Normal 05/24/2024 30 - 36 H[facility] Imm Granulocytes num Bld Auto 0.05 Thou/uL Normal 05/24/2024 0 - 0.1 H[facility]CT PMV Bld Auto 9.5 fL Normal 05/24/2024 7.5 - 12.5 H[facility]CT Monocytes num Bld Auto 0.68 Thou/uL Normal 05/24/2024 0.2 - 1.5 H[facility]CT MCV RBC Auto 97.0 fL Normal 05/24/2024 80 - 100 H[facility] RBC num Bld Auto 4.09 Mil/uL Below low normal 05/24/2024 4.5 - 6.2 H[facility]CT Neutrophils/leuk NFr Bld Auto 66.6 % Normal 05/24/2024 H[facility]CT WBC num Bld Auto 9.6 Thou/uL Normal 05/24/2024 4 - 11 [facility] Immature Platelet Fraction 4.0 % Normal 05/24/2024 1.2 - 8.6 H[facility]CT Neutrophils num Bld Auto 6.36 Thou/uL Normal 05/24/2024 2 - 7.5 H[facility]CT Hgb Bld-mCnc 13.2 g/dL Normal 05/24/2024 13 - 17.7 H[facility]CT Basophils num Bld Auto 0.05 Thou/uL Normal 05/24/2024 0 - 0.2 HHCCT MCH RBC Qn Auto 32.3 pg Above high normal 05/24/2024 27 - 31 H[facility]CT Eosinophil num Bld Auto 0.11 Thou/uL Normal 05/24/2024 0 - 0.7 H[facility]CT Monocytes/leuk NFr Bld Auto 7.1 % Normal 05/24/2024 H[facility]CT Lymphocytes num Bld Auto 2.32 Thou/uL Normal 05/24/2024 1.5 - 4.5 H[facility]CT Eosinophil/leuk NFr Bld Auto 1.1 % Normal 05/24/2024 H[facility]CT Lymphocytes/leuk NFr Bld Auto 24.2 % Normal 05/24/2024 H[facility]CT Imm Granulocytes/leuk NFr Bld Auto 0.5 % Normal 05/24/2024 HHCCT ALP SerPl-cCnc 100.0 U/L Normal 05/24/2024 45 - 128 HHCC T Sodium SerPl-sCnc 131.0 mmol/L Below low normal 05/24/2024 1 36 - 145 H[facility]CT Anion Gap Bld-sCnc 16.0 Normal 05/24/2024 7 - 17 H[facility]CT Globulin Ser Calc-mCnc 3.3 g/dL Normal 05/24/2024 1.5 - 3.9 HHCCT GFR/BSA.pred SerPlBld ZAI-PJW-XzLXat 90.0 Normal 05/24/2024 59 - HHCCT Albumin/Glob SerPl 1.3 Ratio Normal 05/24/2024 HHCCT Calcium SerPl-mCnc 9.1 mg/dL Normal 05/24/2024 8.7 - 10.5 HHCCT Albumin SerPl-mCnc 4.2 g/dL Normal 05/24/2024 3.4 - 4.8 HHCCT Creat SerPl-mCnc 0.9 mg/dL Normal 05/24/2024 0.5 - 1.3 HH CCT BUN SerPl-mCnc 14.0 mg/dL Normal 05/24/2024 8 - [address] AST SerPl-cCnc Specimen hemolyzed. Test not performed. Normal 05/24/2024 10 - 55 HHCCT Bilirub SerPl-mCnc 0.3 mg/dL Normal 05/24/2024 0.2 - 1 HHCCT CO2 SerPl-sCnc 18.0 mmol/L Below low normal 05/24/2024 22 - 33 HHCCT Glucose SerPl-mCnc 86.0 mg/dL Normal 05/24/2024 65 - 99 HHCCT Prot SerPl-mCnc 7.5 g/dL Normal 05/24/2024 6.3 - 8.[address] Potassium SerPl-sCnc Specimen hemolyzed. Test not performed. Normal 05/24/2024 3.4 - 5.3 HHCCT Chloride SerPl-sCnc 97.0 mmol/L Below low normal 05/24/2024 98 - 107 HHCCT BUN/Creat SerPl 16.0 Ratio Normal 05/24/2024 10 - 25 HH CCT ALT SerPl-cCnc Specimen hemolyzed. Test not performed. Normal 05/24/2024 10 - 55 HHCCT Lipase SerPl-cCnc 77.0 U/L Above high normal 05/24/2024 13 - 60 HHCCT CK SerPl-cCnc 170.0 U/L Normal 05/24/2024 24 - 204 HHCCT Magnesium SerPl-mCnc 1.7 mg/dL Normal 05/24/2024 1.6 - 2. 7 HHCCT Encounters Encounter Type Encounter Reason Primary Diagnosis Location Date Emergency Unspecified fall, initial encounter Unspecified fall, initial encounter [facility] 05/23/2024 Care Team Organization Name Specialty Phone Email Start Date End Da te [facility] 05/24/2024 01/28/2025 [facility] 05/24/2024 [facility] 05/24/2024 [facility] Marcin Segura Primary Care 09/19/2022 06/30/20 24
--- OUTSIDE RECORDS SUMMARY | 2025-11-02 12:36 | XMS_ITS | Encounter Summary ---
Author Organization [facility] Prior to 09/12/2024 Address [address] [place] [address] Care Team Providers Care Oil Analyst Name Role Phone Marcin Segura MD Primary Care Provider [phone] Sal Padilla MD Unavailable Unavailable Kamlesh Webb Unavailable Unavailable Chris Donaldson Unavailable Unavailable Hannah Beckwith PA-C Unavailable [phone] Mallika Soares MD Unavailable Encounter Details Date Type Department Care Team Description 09/12/2010 [facility] Commercial Sales Manager Report Medical Records [address] [place] [address] Amaury Echeverria Social History Tobacco Use Types Packs/Day Years Used Date Smoking Tobacco: Every Day Cigarettes 0.5 40 Comments:started at 16 years old - stopped smoking 05/24/2006- started smoking again in OCT 2006-(03/21/07) quit again 5 weeks ago-STARTED AGAIN 09/12/01/ PK PER DAY Alcohol Use Standard Drinks/Week Comments Yes 0 (1 standard drink = 0.6 oz pur e alcohol) 2 beers/day Alcohol Habits Answer Date Recorded How often [...] How often do you attend christian or roman catholic serv ices? Never 08/28/2022 [...] place to sleep or slept in a retirement (including now)? No 08/28/2022 Sex Assigned at [...] documented as of this encounter Care Teams Oil Analyst Relationship Specialty Start Date End Date Marcin Segura MD [address] [place] [address] PCP - General 10/12/1992 Sal Padilla MD [address] [place] [address] Nephrology 08/28/22 Kamlesh Webb [address] [place] [address] Ophthalmology 08/28/22 Chris Donaldson [address] [place] [address] Otolaryngology 08/28/22 Hannah Beckwith PA-C [address] [facility] [address] [place] [address] Vascular Surgery 08/28/22 Mallika Soares MD [address] [place] [phone] Specialist Pulmonology 08/28/22 documented as of this encounter
--- OUTSIDE RECORDS SUMMARY | 2025-11-02 12:36 | XMS_ITS | Encounter Summary ---
Author Organization [facility] Prior to 09/12/2024 Address [address] [place] [address] Care Team Providers Care Money Order Clerk Name Role Phone Marcin Segura MD Primary Care Provider [phone] Sal Padilla MD Unavailable Unavailable Kamlesh Webb Unavailable Unavailable Chris Donaldson Unavailable Unavailable Hannah Beckwith PA-C Unavailable [phone] Mallika Soares MD Unavailable Encounter Details Date Type Department Care Team Description 02/13/2023 Refill Pulmonology [facility] [address] [facility] [address] [place] [phone] Mallika Soares MD [address] [place] [address] Social History Tobacco Use Types Packs/Day Years [...] How often do you attend tenriism or bahai serv ices? Never 08/28/2022 Do you belong [...] place to sleep or slept in a mcfp (including now)? No 08/28/2022 Sex Assigned at Date Recorded Not on file Job Start Date Occupation Industry Not on file Not on file Not on file COVID-19 Exposure Response Date Recorded In the last 10 days, have yo u been in contact with someone who was confirmed or suspected to have Coronavirus/COVID-19? No / Unsure 01/24/2023 9:49 AM EDT documented as of this encounter Plan of Treatment Not on file documented as of this encounter Visit Diagnoses Not on filedocumented in this encounter Additional Health Concerns Infection Onset Date Last Indicated Resolved Time COVID-19 Comment:VNA advised Positive Covid on 02/10/22 02/10/2022 02/16/2022 documented as of this encounter Care Teams Money Order Clerk Relationship Specialty Start Date End Date Marcin Segura MD [address] [place] [address] PCP - General 10/12/1992 Sal Padilla MD [address] [place] [address] Nephrology 08/28/22 Kamlesh Webb [address] [place] [address] Ophthalmology 08/28/22 Chris Donaldson [address] [place] [address] Otolaryngology 08/28/22 Hannah Beckwith PA-C 300 [facility] [address] [place] [address] Vascular Surgery 08/28/22 Mallika Soares MD [address] [place] [address] Specialist Pulmonology 08/28/22 documented as of this encounter
--- OUTSIDE RECORDS SUMMARY | 2025-11-02 12:36 | XMS_ITS | Encounter Summary ---
Author Organization [facility] Prior to 09/12/2024 Address [address] [place] [address] Care Team Providers Care B2B Sales Professional Name Role Phone Marcin Segura MD Primary Care Provider [phone] Sla Padilla MD Unavailable Unavailable Kamlesh Webb Unavailable Unavailable Chris Donaldson Unavailable Unavailable Hannah Beckwith PA-C Unavailable [phone] Mallika Soares MD Unavailable Encounter Details Date Type Department Care Team Description 01/04/2017 Electric Trucker Report Medical Records [address] [place] [address] Susana Padilla MD Social History Tobacco Use Types Packs/Day [...] How often do you attend anabaptism or jew serv ices? Never 08/28/2022 Do you belong to any clubs o r organizations such as anabaptism groups, unions, fraYeti Data or athletic groups, or school groups? Yes [...] documented as of this encounter Care Teams B2B Sales Professional Relationship Specialty Start Date End Date Marcin Segura MD [address] [place] [address] PCP - General 10/12/1992 Sal Padilla MD [address] [place] [address] Nephrology 08/28/22 Kamlesh Webb [address] [place] [address] Ophthalmology 08/28/22 Chris Donaldson [address] [place] [address] Otolaryngology 08/28/22 Hannah Beckwith PA-C 300 [facility] [address] [place] [phone] Vascular Surgery 08/28/22 Mallika Soares MD [address] [place] [address] Specialist Pulmonology 08/28/22 documented as of this encounter
--- OUTSIDE RECORDS SUMMARY | 2025-11-02 12:36 | XMS_ITS | Encounter Summary ---
Author Organization [facility] Prior to 09/12/2024 Address [address] [place] [address] Care Team Providers Care Healthcare Representative Name Role Phone Marcin Segura MD Primary Care Provider [phone] Sal Padilla MD Unavailable Unavailable Kamlesh Webb Unavailable Unavailable Chris Donaldson Unavailable Unavailable Hannah Beckwith PA-C Unavailable [phone] Mallika Soares MD Unavailable Reason for Visit * Reason Onset Date Comments VNA Call 02/28/2023 Alberto SCHMITZ Encounter Details Date Type Department Care Team Description 02/28/2023 Telephone Adult Medicine [address] [address] Marcin Segura MD [address] [place] [address] VNA Call (Alberto SCHMITZ) Social History Tobacco Use Types Packs/Day Years [...] week 08/28/2022 How often do you attend mormon or methodist serv ices? Never 08/28/2022 Do you belong to any clubs o r organizations such as mormon groups, unions, fraWananchi Group or athletic groups, or school groups? [...] encounter Miscellaneous Notes * Telephone Encounter - Cecy Sena L.P.N. - 03/01/2023 9:45 AM EDT JAGRUTI Spoke w/ Ambika, Physical Therapist. She reports that the patient c/o low back pain. Ambika thinks it is muscular and will be doing soft tissue massages. JAGRUTI to PCP. Thank you. * Telephone Encounter - Fernanda Simon R.N. - 02/28/2023 4:37 PM EDT I left a message for the Ambika PT to return my call, to triage. * Telephone Encounter - Caren Vazquez Koske - 02/28/2023 4:15 PM EDT [phone] * Telephone Encounter - Fernanda Simon R.N. - 02/28/2023 4:07 PM EDT Is phone number correct dialed x 2 number doesn't ring, it goes to a dialing noise? * Telephone Encounter - Caren George Doran - 02/28/2023 3:59 PM EDT [facility]NA CALL Which [facility] office is calling? [facility] Full name of caller: Ambika The caller is Physical therapist Is the caller at the patients home?: NO Reason for call: Physical therapist saw him yesterday and was doing well, complains today of new LBP consistent with soft tissue, physical therapist wants to do soft tissue massage to stretch out Does caller need an urgent call back? NO Was CONTACT Telephone # obtained above?: YES Fax #: documented in this encounter Plan of Treatment Not on file documented as of this encounter Visit Diagnoses Not on filedocumented in this encounter Additional Health Concerns Infection Onset Date Last Indicated Resolved Time COVID-19 Comment:VNA advised Positive Covid on 02/10/22 02/10/2022 02/16/2022 documented as of this encounter Care Teams Healthcare Representative Relationship Specialty Start Date End Date Marcin Segura MD [address] [place] [address] PCP - General 10/12/1992 Sal Padilla MD [address] [place] [address] Nephrology 08/28/22 Kamlesh Webb [address] [place] [address] Ophthalmology 08/28/22 Chris Donaldson [address] [place] [address] Otolaryngology 08/28/22 Hannah Beckwith PA-C [address] [facility] [address] [place] [address] Vascular Surgery 08/28/22 Mallika Soares MD [address] [place] [address] Specialist Pulmonology 08/28/22 documented as of this encounter
--- OUTSIDE RECORDS SUMMARY | 2025-11-02 12:36 | XMS_ITS | Encounter Summary ---
Author Organization [facility] Prior to 09/12/2024 Address [address] [place] [address] Care Team Providers Care Sanitary Landfill Operator Name Role Phone Marcin Segura MD Primary Care Provider [phone] Sal Padilla MD Unavailable Unavailable Kamlesh Webb Unavailable Unavailable Chris Donaldson Unavailable Unavailable Hannah Beckwith PA-C Unavailable [phone] Mallika Soares MD Unavailable Encounter Details Date Type Department Care Team Description 04/22/2020 Aerospace Project Engineer Report Medical Records [address] [place] [address] Froylan Bey I., PH.D Social History Tobacco [...] week 08/28/2022 How often do you attend synagogue or gnosticism serv ices? Never 08/28/2022 Do you belong to any clubs o r organizations such as synagogue groups, unions, fraternal or athletic groups, or [...] documented as of this encounter Care Teams Sanitary Landfill Operator Relationship Specialty Start Date End Date Marcin Segura MD [address] [place] [address] PCP - General 10/12/1992 Sal Padilla MD [address] [place] [address] Nephrology 08/28/22 Kamlesh Webb [address] [place] [address] Ophthalmology 08/28/22 Chris Donaldson [address] [place] [address] Otolaryngology 08/28/22 Hannah Beckwith PA-C [address] [facility] [address] [place] [phone] Vascular Surgery 08/28/22 Mallika Soares MD [address] [place] [phone] Specialist Pulmonology 08/28/22 documented as of this encounter
--- OUTSIDE RECORDS SUMMARY | 2025-11-02 12:36 | XMS_ITS | Encounter Summary ---
Author Organization [facility] [employer] [facility] Prior to 09/12/2024 Address [address] [place] [address] Care Team Providers Care Sales Engineer Name Role Phone Marcin Segura MD Primary Care Provider Sal Padilla MD Unavailable Unavailable Kamlesh Webb Unavailable Unavailable Chris Donaldson Unavailable Unavailable Hannah Beckwith PA-C Unavailable [phone] Mallika Soares MD Unavailable Encounter Details Date Type Department Care Team Description 01/26/2023 Home Health Certification Medical Records [address] [place] [address] Social History Tobacco Use Types Packs/Day Years [...] How often do you attend moravian or islam serv ices? Never 08/28/2022 Do you belong [...] place to sleep or slept in a longterm (including now)? No 08/28/2022 Sex Assigned at [...] documented as of this encounter Care Teams Sales Engineer Relationship Specialty Start Date End Date Marcin Segura MD [address] [place] [address] PCP - General 10/12/1992 Sal Padilla MD [address] [place] [address] Nephrology 08/28/22 Kamlesh Webb [address] [place] [address] Ophthalmology 08/28/22 Chris Donaldson [address] [place] [address] Otolaryngology 08/28/22 Hannah Beckwith PA-C [address] [facility] [address] [place] [phone] Vascular Surgery 08/28/22 Mallika Soares MD [address] [place] [phone] Specialist Pulmonology 08/28/22 documented as of this encounter
--- OUTSIDE RECORDS SUMMARY | 2025-11-02 12:36 | XMS_ITS | Encounter Summary ---
Author Organization [facility] Prior to 09/12/2024 Address [address] [place] [address] Care Team Providers Care Regional Guide Name Role Phone Marcin Segura MD Primary Care Provider [phone] Sal Padilla MD Unavailable Unavailable Kamlesh Webb Unavailable Unavailable Chris Donaldson Unavailable Unavailable Hannah Beckwith PA-C Unavailable [phone] Mallika Soares MD Unavailable Encounter Details Date Type Department Care Team Description 07/04/2016 Accounts Specialist Report Medical Records [address] [place] [address] Angelique Delvalle Social History Tobacco Use Types [...] week 08/28/2022 How often do you attend adventist or baptist serv ices? Never 08/28/2022 Do you belong to any clubs o r organizations such as adventist groups, unions, fraternal or athletic groups, or [...] documented as of this encounter Care Teams Regional Guide Relationship Specialty Start Date End Date Marcin Segura MD [address] [place] [address] PCP - General 10/12/1992 Sal Padilla MD [address] [place] [address] Nephrology 08/28/22 Kamlesh Webb [address] [place] [address] Ophthalmology 08/28/22 Chris Donaldson [address] [place] [address] Otolaryngology 08/28/22 Hannah Beckwith PA-C [address] [facility] [address] [place] [phone] Vascular Surgery 08/28/22 Mallika Soares MD [address] [place] [phone] Specialist Pulmonology 08/28/22 documented as of this encounter
--- OUTSIDE RECORDS SUMMARY | 2025-11-02 12:36 | XMS_ITS | Encounter Summary ---
Author Organization [facility] Prior to 09/12/2024 Address [address] [place] [address] Care Team Providers Care Fire Control Assistant Name Role Phone Marcin Segura MD Primary Care Provider [phone] Sal Padilla MD Unavailable Unavailable Kamlesh Webb Unavailable Unavailable Chris Donaldson Unavailable Unavailable Hannah Beckwith PA-C Unavailable [phone] Mallika Soares MD Unavailable Encounter Details Date Type Department Care Team Description 09/08/2016 Release of Information Medical Records [address] [place] [address] Abstract, Provider Social History Tobacco Use Types [...] week 08/28/2022 How often do you attend mandaen or adventist serv ices? Never 08/28/2022 Do you belong to any clubs o r organizations such as mandaen groups, unions, fraternal or athletic groups, or [...] documented as of this encounter Care Teams Fire Control Assistant Relationship Specialty Start Date End Date Marcin Segura MD [address] [place] [address] PCP - General 10/12/1992 Sal Padilla MD [address] [place] [address] Nephrology 08/28/22 Kamlesh Webb [address] [place] [address] Ophthalmology 08/28/22 Chris Donaldson [address] [place] [address] Otolaryngology 08/28/22 Hannah Beckwith PA-C 300 [facility] [address] [place] [phone] Vascular Surgery 08/28/22 Mallika Soares MD [address] [place] [phone] Specialist Pulmonology 08/28/22 documented as of this encounter
--- OUTSIDE RECORDS SUMMARY | 2025-11-02 12:36 | XMS_ITS | Encounter Summary ---
Author Organization [employer] [facility] Prior to 09/12/2024 Address [address] [place] [address] Care Team Providers Care Grocery Bagger Name Role Phone Marcin Segura MD Primary Care Provider [phone] Sal Padilla MD Unavailable Unavailable Kamlesh Webb Unavailable Unavailable Chris Donaldson Unavailable Unavailable Hannah Beckwith PA-C Unavailable [phone] Mallika Soares MD Unavailable Encounter Details Date Type Department Care Team Description 02/17/2011 Agricultural Service Worker Report Medical Records [address] [place] [address] Josiah Silva PA-C Social History Tobacco Use [...] drink = 0.6 oz pur e alcohol) 6 beers per week Alcohol Habits Answer Date [...] week 08/28/2022 How often do you attend denominational or scientology serv ices? Never 08/28/2022 Do you belong to any clubs o r organizations such as denominational groups, unions, fraternal or athletic groups, or [...] documented as of this encounter Care Teams Grocery Bagger Relationship Specialty Start Date End Date Marcin Segura MD [address] [place] [address] PCP - General 10/12/1992 Sal Padilla MD [address] [place] [address] Nephrology 08/28/22 Kamlesh Webb [address] [place] [address] Ophthalmology 08/28/22 Chris Donaldson [address] [place] [address] Otolaryngology 08/28/22 Hannah Beckwith PA-C [address] [facility] [address] [place] [phone] Vascular Surgery 08/28/22 Mlalika Soares MD [address] [place] [phone] Specialist Pulmonology 08/28/22 documented as of this encounter
--- OUTSIDE RECORDS SUMMARY | 2025-11-02 12:36 | XMS_ITS | Encounter Summary ---
Author Organization [facility] Prior to 09/12/2024 Address [address] [place] [address] Care Team Providers Care Ad Compositor Name Role Phone Marcin Segura MD Primary Care Provider [phone] Sal Padilla MD Unavailable Unavailable Kamlesh Webb Unavailable Unavailable Chris Donaldson Unavailable Unavailable Hannah Beckwith PA-C Unavailable [phone] Mallika Soares MD Unavailable Encounter Details Date Type Department Care Team Description 10/13/2016 Color Expert Report Medical Records [address] [place] [address] Yash Amaral MD Social History Tobacco Use Types Packs/Day [...] week 08/28/2022 How often do you attend rastafarian or buddhism serv ices? Never 08/28/2022 Do you belong to any clubs o r organizations such as rastafarian groups, unions, fraternal or athletic groups, or [...] documented as of this encounter Care Teams Ad Compositor Relationship Specialty Start Date End Date Marcin Segura MD [address] [place] [address] PCP - General 10/12/1992 Sal Padilla MD [address] [place] [address] Nephrology 08/28/22 Kamlesh Webb [address] [place] [address] Ophthalmology 08/28/22 Chris Donaldson [address] [place] [address] Otolaryngology 08/28/22 Hannah Beckwith PA-C 300 [facility] [address] [place] [phone] Vascular Surgery 08/28/22 Mallika Soares MD [address] [place] [phone] Specialist Pulmonology 08/28/22 documented as of this encounter
--- OUTSIDE RECORDS SUMMARY | 2025-11-02 12:36 | XMS_ITS | Encounter Summary ---
Author Organization [employer] [facility] Prior to 09/12/2024 Address [address] [place] [address] Care Team Providers Care Full Stack Net Developer Name Role Phone Marcin Segura MD Primary Care Provider [phone] Sal Padilla MD Unavailable Unavailable Kamlesh Webb Unavailable Unavailable Chris Donaldson Unavailable Unavailable Hannah Beckwith PA-C Unavailable [phone] Mallika Soares MD Unavailable Encounter Details Date Type Department Care Team Description 01/23/2011 Hospital Medical Records [address] [place] [address] Riley Garcia MD Social History Tobacco Use Types Packs/Day [...] week 08/28/2022 How often do you attend roman catholic or hindu serv ices? Never 08/28/2022 Do you belong to any clubs o r organizations such as roman catholic groups, unions, fraternal or athletic groups, or [...] documented as of this encounter Care Teams Full Stack Net Developer Relationship Specialty Start Date End Date Marcin Segura MD [address] [place] [address] PCP - General 10/12/1992 Sal Padilla MD [address] [place] [address] Nephrology 08/28/22 Kamlesh Webb [address] [place] [address] Ophthalmology 08/28/22 Chris Donaldson [address] [place] [address] Otolaryngology 08/28/22 Hannah Beckwith PA-C 300 [facility] [address] [place] [phone] Vascular Surgery 08/28/22 Mallika Soares MD [address] [place] [phone] Specialist Pulmonology 08/28/22 documented as of this encounter
--- OUTSIDE RECORDS SUMMARY | 2025-11-02 12:36 | XMS_ITS | Encounter Summary ---
Author Organization [employer] [facility] Prior to 09/12/2024 Address [address] [place] [address] Care Team Providers Care Cytotechnologist/Cytology Supervisor Name Role Phone Marcin Segura MD Primary Care Provider Sal Padilla MD Unavailable Unavailable Kamlesh Webb Unavailable Unavailable Chris Donaldson Unavailable Unavailable Hannah Beckwith PA-C Unavailable [phone] Mallika Soares MD Unavailable Encounter Details Date Type Department Care Team Description 05/18/2021 Attacher Report Medical Records [address] [place] [address] Froylan Bey I., PH.D Social History Tobacco [...] How often do you attend mandaeism or restoration serv ices? Never 08/28/2022 Do [...] have Coronavirus / COVID-19? No / Unsure 04/29/2021 10:44 AM EDT documented as of this encounter Plan of Treatment Not on file documented as of this encounter Visit Diagnoses Not on filedocumented in this encounter Additional Health Concerns Infection Onset Date Last Indicated Resolved Time COVID-19 Comment:VNA advised Positive Covid on 02/10/22 02/10/2022 02/16/2022 documented as of this encounter Care Teams Cytotechnologist/Cytology Supervisor Relationship Specialty Start Date End Date Marcin Segura MD [address] [place] [address] PCP - General 10/12/1992 Sal Padilla MD [address] [place] [address] Nephrology 08/28/22 Kamlesh Webb [address] [place] [address] Ophthalmology 08/28/22 Chris Donaldson [address] [place] [address] Otolaryngology 08/28/22 Hannah Beckwith PA-C 300 [facility] [address] [place] [phone] Vascular Surgery 08/28/22 Mallika Soares MD [address] [place] [phone] Specialist Pulmonology 08/28/22 documented as of this encounter
--- OUTSIDE RECORDS SUMMARY | 2025-11-02 12:36 | XMS_ITS | Encounter Summary ---
Author Organization [employer] [facility] Prior to 09/12/2024 Address [address] [place] [address] Care Team Providers Care Vp Of Digital Marketing Name Role Phone Marcin Segura MD Primary Care Provider [phone] Sla Padilla MD Unavailable Unavailable Kamlesh Webb Unavailable Unavailable Chris Donaldson Unavailable Unavailable Hannah Beckwith PA-C Unavailable [phone] Mallika Soares MD Unavailable Encounter Details Date Type Department Care Team Description 05/25/2016 [place] Report Medical Records [address] [place] [address] Abstract, Provider Social History Tobacco Use Types [...] week 08/28/2022 How often do you attend voodoo or uatsdin serv ices? Never 08/28/2022 Do you belong to any clubs o r organizations such as voodoo groups, unions, fraternal or athletic groups, or [...] documented as of this encounter Care Teams Vp Of Digital Marketing Relationship Specialty Start Date End Date Marcin Segura MD [address] [place] [address] PCP - General 10/12/1992 Sal Padilla MD [address] [place] [address] Nephrology 08/28/22 Kamlesh Webb [address] [place] [address] Ophthalmology 08/28/22 Chris Donaldson [address] [place] [address] Otolaryngology 08/28/22 Hannah Beckwith PA-C 300 [facility] [address] [place] [phone] Vascular Surgery 08/28/22 Mallika Soares MD [address] [place] [phone] Specialist Pulmonology 08/28/22 documented as of this encounter
--- OUTSIDE RECORDS SUMMARY | 2025-11-02 12:36 | XMS_ITS | Encounter Summary ---
Author Organization [employer] [facility] Prior to 09/12/2024 Address [address] [place] [address] Care Team Providers Care Beef Breaker Name Role Phone Marcin Segura MD Primary Care Provider [phone] Sal Padilla MD Unavailable Unavailable Kamlesh Webb Unavailable Unavailable Chris Donaldson Unavailable Unavailable Hannah Beckwith PA-C Unavailable [phone] Mallika Soares MD Unavailable Reason for Visit * Reason Onset Date Comments refill request 01/06/2020 Encounter Details Date Type Department Care Team Description 01/06/2020 Refill Adult Medicine [address] [address] Marcin Segura MD [address] [place] [address] refill request Social History Tobacco Use Types Packs/Day Years [...] week 08/28/2022 How often do you attend protestant or mormon serv ices? Never 08/28/2022 Do you belong to any clubs o r organizations such as protestant groups, unions, [employer], [employer] or athletic groups, or school groups? Yes [...] Telephone Encounter - Rebecca Ramos M.A. - 01/06/2020 4:35 PM EST Date of last office visit was 12/09/19. Pended appt for 01/11/20 Lab Results Component Value Date NA 140 07/29/2019 K 4.9 07/29/2019 CO2 26 07/29/2019 CL 104 07/29/2019 BUN 17 07/29/2019 CREAT 1.12 07/29/2019 GLU 197 07/29/2019 CA 8.9 07/29/2019 GFR > 60 07/29/2019 * Telephone Encounter - Juvenal Fields - 01/06/2020 3:41 PM EST Patient would like script to be: E-PRESCRIBED/FAXED TO PHARMACY ?? WHEN WAS THE PATIENT'S LAST APPOINTMENT IN ADULT MEDICINE? 12/09/19 ?? WHEN WAS THE LAST TIME THE PATIENT SAW THEIR PCP? Same as above ?? Does patient have an upcoming appointment? Yes 01/27/20 ?? (THE MEDICATION REQUESTED IS ON THE MED LIST ABOVE) All of the medications requested were on the CURRENT MEDS list ?? Did you check the Pharmacy information above?: YES ?? Patient wants: 90 -day supply ?? Is this a mail order prescription request ? NO ?? If the refill is from a FAXED refill request what is the RX # listed on the fax? N/A ?? Patients current insurance carrier is: Payor: [facility] FFS / Plan: HNE MEDICARE SECURE $10 [place] / Product Type: MEDICARE [id number] ?? documented in this encounter Plan of Treatment Not on file documented as of this encounter Visit Diagnoses Not on filedocumented in this encounter Additional Health Concerns Infection Onset Date Last Indicated Resolved Time COVID-19 Comment:VNA advised Positive Covid on 02/10/22 02/10/2022 02/16/2022 documented as of this encounter Care Teams Beef Breaker Relationship Specialty Start Date End Date Marcin Segura MD [address] [place] [address] PCP - General 10/12/1992 Sal Padilla MD [address] [place] [address] Nephrology 08/28/22 Kamlesh Webb [address] [place] [address] Ophthalmology 08/28/22 Chris Donaldson [address] [place] [address] Otolaryngology 08/28/22 Hannah Beckwith PA-C 300 [facility] [address] [place] [address] Vascular Surgery 08/28/22 Mallika Soares MD [address] [place] [address] Specialist Pulmonology 08/28/22 documented as of this encounter
--- OUTSIDE RECORDS SUMMARY | 2025-11-02 12:36 | XMS_ITS | Encounter Summary ---
Author Organization [employer] [facility] Prior to 09/12/2024 Address [address] [place] [address] Care Team Providers Care Formstone Fitter Name Role Phone Marcin Segura MD Primary Care Provider [phone] Sal Padilla MD Unavailable Unavailable Kamlesh Webb Unavailable Unavailable Chris Donaldson Unavailable Unavailable Hannah Beckwith PA-C Unavailable [phone] Mallika Soares MD Unavailable Encounter Details Date Type Department Care Team Description 03/05/2023 [facility] Report Medical Records [address] [place] [address] Abstract, Provider Social History Tobacco Use Types [...] How often do you attend tenriism or lutheran serv ices? Never 08/28/2022 Do you belong [...] suspected to have Coronavirus/COVID-19? No / Unsure 03/05/2023 11:17 AM EDT documented as of this encounter Plan of Treatment Not on file documented as of this encounter Visit Diagnoses Not on filedocumented in this encounter Additional Health Concerns Infection Onset Date Last Indicated Resolved Time COVID-19 Comment:VNA advised Positive Covid on 02/10/22 02/10/2022 02/16/2022 documented as of this encounter Care Teams Formstone Fitter Relationship Specialty Start Date End Date Marcin Segura MD [address] [place] [address] PCP - General 10/12/1992 Sal Padilla MD [address] [place] [address] Nephrology 08/28/22 Kamlesh Webb [address] [place] [address] Ophthalmology 08/28/22 Chris Donaldson [address] [place] [address] Otolaryngology 08/28/22 Hannah Beckwith PA-C 300 [facility] [address] [place] [phone] Vascular Surgery 08/28/22 Mallika Soares MD [address] [place] [phone] Specialist Pulmonology 08/28/22 documented as of this encounter
--- OUTSIDE RECORDS SUMMARY | 2025-11-02 12:36 | XMS_ITS | Encounter Summary ---
Author Organization [employer] [facility] Prior to 09/12/2024 Address [address] [place] [address] Care Team Providers Care Smoke And Flame Specialist Name Role Phone Marcin Segura MD Primary Care Provider [phone] Sal Padilla MD Unavailable Unavailable Kamlesh Webb Unavailable Unavailable Chris Donaldson Unavailable Unavailable Hannah Beckwith PA-C Unavailable [phone] Mallika Soares MD Unavailable Reason for Visit * Reason Comments E-prescribe Rx Request Encounter Details Date Type Department Care Team Description 05/29/2022 Refill Adult Medicine [address] [address] Trace Biggs MD [address] [place] [address] E-prescribe Rx Request Social History Tobacco Use [...] week 08/28/2022 How often do you attend oriental orthodox or samaritan serv ices? Never 08/28/2022 Do you belong to any clubs o r organizations such as oriental orthodox groups, unions, fraEdkimo or athletic groups, or school groups? Yes [...] encounter Miscellaneous Notes * Telephone Encounter - Erica Rivera C.M.A. - 05/30/2022 9:15 AM EDT Cindy 03/20/22 New 08/28/22 Lab Results Component Value Date NA 140 03/20/2022 K 5.4 03/20/2022 CO2 29 03/20/2022 CL 105 03/20/2022 BUN 11 03/20/2022 CREAT 1.16 03/20/2022 GLU 92 03/20/2022 CA 9.7 03/20/2022 GFR > 60 03/20/2022 Lab Results Component Value Date HGBA1C 7.6 03/20/2022 MALBUR 22.2 02/18/2021 MALBCR 16.4 02/18/2021 CHOL 136 03/20/2022 LDL 51 03/20/2022 HDL 58 03/20/2022 TRIG 135 03/20/2022 GLU 92 03/20/2022 CREAT 1.16 03/20/2022 * Telephone Encounter - Angela Jaramillo - 05/29/2022 11:17 AM EDT Patient would like script to be: E-PRESCRIBED/FAXED TO PHARMACY WHEN WAS THE PATIENT'S LAST APPOINTMENT IN ADULT MEDICINE? 03-20-22 WHEN WAS THE LAST TIME THE PATIENT SAW THEIR PCP? Same as above Does patient have an upcoming appointment? Yes 08-28-22 (THE MEDICATION REQUESTED IS ON THE MED LIST ABOVE) All of the medications requested were on the CURRENT MEDS list Did you check the Pharmacy information above?: YES Patient wants: 90 -day supply Is this a mail order prescription request ? NO If the refill is from a FAXED refill request what is the RX # listed on the fax? 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)- Primary Type II or unspecified type diabetes mellitus with peripheral circulatory disorders, not stated as uncontrolled documented in this encounter Additional Health Concerns Infection Onset Date Last Indicated Resolved Time COVID-19 Comment:VNA advised Positive Covid on 02/10/22 02/10/2022 02/16/2022 documented as of this encounter Care Teams Smoke And Flame Specialist Relationship Specialty Start Date End Date Marcin Segura MD [address] [place] [address] PCP - General 10/12/1992 Sal Padilla MD [address] [place] [address] Nephrology 08/28/22 Kamlesh Webb [address] [place] [address] Ophthalmology 08/28/22 Chris Donaldson [address] [place] [address] Otolaryngology 08/28/22 Hannah Beckwith PA-C 300 [facility] [address] [place] [phone] Vascular Surgery 08/28/22 Mallika Soares MD [address] [place] [phone] Specialist Pulmonology 08/28/22 documented as of this encounter
--- OUTSIDE RECORDS SUMMARY | 2025-11-02 12:36 | XMS_ITS | Encounter Summary ---
Author Organization [employer] [facility] Prior to 09/12/2024 Address [address] [place] [address] Care Team Providers Care Street Commissioner Name Role Phone Marcin Segura MD Primary Care Provider [phone] Sal Padilla MD Unavailable Unavailable Kamlesh Webb Unavailable Unavailable Chris Donaldson Unavailable Unavailable Hannah Beckwith PA-C Unavailable [phone] Mallika Soares MD Unavailable Reason for Visit * Reason Comments E-prescribe Rx Request Encounter Details Date Type Department Care Team Description 11/24/2019 Refill Adult Medicine [address] [address] Lucero Eckert PA-C [address] [place] [address] E-prescribe Rx Request Social History Tobacco Use [...] How often do you attend caodaism or jainism serv ices? Never 08/28/2022 Do you belong to any clubs o r organizations such as caodaism groups, unions, [employer]ision[employer] or athletic groups, or school groups? Yes [...] encounter Miscellaneous Notes * Telephone Encounter - Emely Rojo PA-C - 11/25/2019 4:59 PM EST Please re-route to endocrinology. * Telephone Encounter - Dianne Chance M.A. - 11/25/2019 11:51 AM EST Last office visit 09.12.19 Lab Results Component Value Date HGBA1C 7.4 09/12/2019 MALBUR 19.0 04/14/2019 MALBCR 10.6 04/14/2019 CHOL 130 07/29/2019 LDL 43 07/29/2019 HDL 43 07/29/2019 TRIG 223 07/29/2019 GLU 197 07/29/2019 CREAT 1.12 07/29/2019 * Telephone Encounter - Sil Haley - 11/25/2019 10:09 AM EST Patient would like script to be: E-PRESCRIBED/FAXED TO PHARMACY WHEN WAS THE PATIENT'S LAST APPOINTMENT IN ADULT MEDICINE? 09/12/19 WHEN WAS THE LAST TIME THE PATIENT SAW THEIR PCP? Same as above Does patient have an upcoming appointment? Yes 01/27/20 (THE MEDICATION REQUESTED IS ON THE MED LIST ABOVE) All of the medications requested were on the CURRENT MEDS list Did you check the Pharmacy information above?: YES Patient wants: 30 -day supply Is this a mail order prescription request ? NO If the refill is from a FAXED refill request what is the RX # listed on the fax? N/A Patients current insurance carrier is: Payor: [facility] FFS / Plan: H[place] MEDICARE SECURE $10 [place] / Product Type: MEDICARE [id number] documented in this encounter Plan of Treatment Not on file documented as of this encounter Visit Diagnoses Not on filedocumented in this encounter Additional Health Concerns Infection Onset Date Last Indicated Resolved Time COVID-19 Comment:VNA advised Positive Covid on 02/10/22 02/10/2022 02/16/2022 documented as of this encounter Care Teams Street Commissioner Relationship Specialty Start Date End Date Marcin Segura MD [address] [place] [address] PCP - General 10/12/1992 Sal Padilla MD [address] [place] [address] Nephrology 08/28/22 Kamlesh Webb [address] [place] [address] Ophthalmology 08/28/22 Chris Donaldson [address] [place] [address] Otolaryngology 08/28/22 Hannah Beckwith PA-C 300 [facility] [address] [place] [phone] Vascular Surgery 08/28/22 Mallika Soares MD [address] [place] [phone] Specialist Pulmonology 08/28/22 documented as of this encounter
--- OUTSIDE RECORDS SUMMARY | 2025-11-02 12:36 | XMS_ITS | Encounter Summary ---
Author Organization [employer] [facility] Prior to 09/12/2024 Address [address] [place] [address] Care Team Providers Care Account Analyst Name Role Phone Marcin Segura MD Primary Care Provider [phone] Sal Padilla MD Unavailable Unavailable Kamlesh Webb Unavailable Unavailable Chris Donaldson Unavailable Unavailable Hannah Beckwith PA-C Unavailable [phone] Mallika Soares MD Unavailable Reason for Visit * Reason Onset Date Comments All Terrain Vehicle Technician Feedback 11/29/2016 Neurosurgery/Dr. GREGORIO Encounter Details Date Type Department Care Team Description 11/29/2016 Telephone [facility] - [address] [address] Melissa Brunson MD All Terrain Vehicle Technician Feedback (Neurosurgery/Dr. GREGORIO) Social History Tobacco Use Types Packs/Day Years [...] How often do you attend anabaptism or moravian serv ices? Never 08/28/2022 Do you belong [...] encounter Miscellaneous Notes * Telephone Encounter - Melissa Brunson MD - 11/29/2016 3:36 PM EST Ordered MRI . Thank you , * Telephone Encounter - Manda Chua - 11/29/2016 2:[address] Brunson, You recently placed and order for this patient to see Dr. Gregorio in Neurosurgery but inorder for me to book an appointment the patient must have an MRI with in the last 6 months , Please order MRI and pend a new order when MRI has been completed. Thank you, Manda Referrals Coordinator [facility] documented in this encounter Plan of Treatment Not on file documented as of this encounter Visit Diagnoses Not on filedocumented in this encounter Additional Health Concerns Infection Onset Date Last Indicated Resolved Time COVID-19 Comment:VNA advised Positive Covid on 02/10/22 02/10/2022 02/16/2022 documented as of this encounter Care Teams Account Analyst Relationship Specialty Start Date End Date Marcin Segura MD [address] [place] [address] PCP - General 10/12/1992 Sal Padilla MD [address] [place] [address] Nephrology 08/28/22 Kamlesh Webb [address] [place] [address] Ophthalmology 08/28/22 Chris Donaldson [address] [place] [address] Otolaryngology 08/28/22 Hannah Beckwith PA-C 300 [facility] [address] [place] [phone] Vascular Surgery 08/28/22 Mallika Soares MD [address] [place] [phone] Specialist Pulmonology 08/28/22 documented as of this encounter
--- OUTSIDE RECORDS SUMMARY | 2025-11-02 12:36 | XMS_ITS | Encounter Summary ---
Author Organization [employer] [facility] Prior to 09/12/2024 Address [address] [place] [address] Care Team Providers Care Cash Management Clerk Name Role Phone Marcin Segura MD Primary Care Provider [phone] Sal Padilla MD Unavailable Unavailable Kamlesh Webb Unavailable Unavailable Chris Donaldson Unavailable Unavailable Hannah Beckwith PA-C Unavailable [phone] Mallika Soares MD Unavailable Encounter Details Date Type Department Care Team Description 09/19/2016 Can Top Setter Report Medical Records [address] [place] [address] Surendra Galaviz MD Social History Tobacco Use Types Packs/Day [...] How often do you attend jainism or yazdanism serv ices? Never 08/28/2022 Do you belong [...] documented as of this encounter Care Teams Cash Management Clerk Relationship Specialty Start Date End Date Marcin Segura MD [address] [place] [address] PCP - General 10/12/1992 Sal Padilla MD [address] [place] [address] Nephrology 08/28/22 Kamlesh Webb [address] [place] [address] Ophthalmology 08/28/22 Chris Donaldson [address] [place] [address] Otolaryngology 08/28/22 Hannah Beckwith PA-C 300 [facility] [address] [place] [phone] Vascular Surgery 08/28/22 Mallika Soares MD [address] [place] [phone] Specialist Pulmonology 08/28/22 documented as of this encounter
--- OUTSIDE RECORDS SUMMARY | 2025-11-02 12:36 | XMS_ITS | Encounter Summary ---
Author Organization [employer] [facility] Prior to 09/12/2024 Address [address] [place] [address] Care Team Providers Care Otr Company Driver Name Role Phone Marcin Segura MD Primary Care Provider [phone] Sal Padilla MD Unavailable Unavailable Kamlesh Webb Unavailable Unavailable Chris Donaldson Unavailable Unavailable Hannah Beckwith PA-C Unavailable [phone] Mallika Soares MD Unavailable Reason for Visit * Reason Onset Date Comments Faxed Order 02/02/2023 [facility] Ord er # [id number] Encounter Details Date Type Department Care Team Description 02/02/2023 Telephone Adult Medicine [address] [address] Marcin Segura MD [address] [place] [address] Faxed Order ([facility] Order # [id number]) Social History Tobacco Use Types Packs/Day Years [...] week 08/28/2022 How often do you attend gnosticism or restorationist serv ices? Never 08/28/2022 Do you belong to any clubs o r organizations such as gnosticism groups, unions, fraternal or athletic groups, or [...] AM EDT documented as of this encounter Miscellaneous Notes * Telephone Encounter - Caren Doran - 02/02/2023 11:17 AM EDT Faxed order received by Alberto SCHMITZ. Order placed in 's bin for signature. Please fax back to [phone] after completion. documented in this encounter Plan of Treatment Not on file documented as of this encounter Visit Diagnoses Not on filedocumented in this encounter Additional Health Concerns Infection Onset Date Last Indicated Resolved Time COVID-19 Comment:NADIR advised Positive Covid on 02/10/22 02/10/2022 02/16/2022 documented as of this encounter Care Teams Otr Company Driver Relationship Specialty Start Date End Date Marcin Segura MD [address] [place] [address] PCP - General 10/12/1992 Sal Padilla MD [address] [place] [address] Nephrology 08/28/22 Kamlesh Webb [address] [place] [address] Ophthalmology 08/28/22 Chris Donaldson [address] [place] [address] Otolaryngology 08/28/22 Hannah Beckwith PA-C 300 [facility] [address] [place] [phone] Vascular Surgery 08/28/22 Mallika Soares MD [address] [place] [phone] Specialist Pulmonology 08/28/22 documented as of this encounter
--- OUTSIDE RECORDS SUMMARY | 2025-11-02 12:36 | XMS_ITS | Encounter Summary ---
Author Organization [employer] [facility] Prior to 09/12/2024 Address [address] [place] [address] Care Team Providers Care Nremt Name Role Phone Marcin Segura MD Primary Care Provider [phone] Sal Padilla MD Unavailable Unavailable Kamlesh Webb Unavailable Unavailable Chris Donaldson Unavailable Unavailable Hannah Beckwith PA-C Unavailable [phone] Mallika Soares MD Unavailable Encounter Details Date Type Department Care Team Description 10/30/2019 Paper Sheeter Report Medical Records [address] [place] [address] Froylan Bey I., PH.D Social History Tobacco [...] How often do you attend latter-day or samaritan serv ices? Never 08/28/2022 Do [...] documented as of this encounter Care Teams Nremt Relationship Specialty Start Date End Date Marcin Segura MD [address] [place] [address] PCP - General 10/12/1992 Sal Padilla MD [address] [place] [address] Nephrology 08/28/22 Kamlesh Webb [address] [place] [address] Ophthalmology 08/28/22 Chris Donaldson [address] [place] [address] Otolaryngology 08/28/22 Hannah Beckwith PA-C 300 [facility] [address] [place] [phone] Vascular Surgery 08/28/22 Mallika Soares MD [address] [place] [phone] Specialist Pulmonology 08/28/22 documented as of this encounter
--- OUTSIDE RECORDS SUMMARY | 2025-11-02 12:36 | XMS_ITS | Encounter Summary ---
Author Organization [facility] Prior to 09/12/2024 Address [address] [place] [address] Care Team Providers Care Pharmacy Clinical Specialist Name Role Phone Marcin Segura MD Primary Care Provider [phone] Sal Padilla MD Unavailable Unavailable Kamlesh Webb Unavailable Unavailable Chris Donaldson Unavailable Unavailable Hannah Beckwith PA-C Unavailable [phone] Mallika Soares MD Unavailable Encounter Details Date Type Department Care Team Description 01/31/2017 Flight Dynamicist Report Medical Records [address] [place] [address] Froylan Bey I., PH.D Social History Tobacco [...] How often do you attend samaritan or synagogue serv ices? Never 08/28/2022 Do you belong to any clubs o r organizations such as samaritan groups, unions, [employer] or athletic groups, or school groups? Yes [...] documented as of this encounter Care Teams Pharmacy Clinical Specialist Relationship Specialty Start Date End Date Marcin Segura MD [address] [place] [address] PCP - General 10/12/1992 Sal Padilla MD [address] [place] [address] Nephrology 08/28/22 Kamlesh Webb [address] [place] [address] Ophthalmology 08/28/22 Chris Donaldson [address] [place] [address] Otolaryngology 08/28/22 Hannah Beckwith PA-C 300 [facility] [address] [place] [phone] Vascular Surgery 08/28/22 Mallika Soares MD [address] [place] [phone] Specialist Pulmonology 08/28/22 documented as of this encounter
--- OUTSIDE RECORDS SUMMARY | 2025-11-02 12:36 | XMS_ITS | Encounter Summary ---
Author Organization [facility] Prior to 09/12/2024 Address [address] [place] [address] Care Team Providers Care Transmission Inspector Name Role Phone Marcin Segura MD Primary Care Provider [phone] Sal Padilla MD Unavailable Unavailable Kamlesh Webb Unavailable Unavailable Chris Donaldson Unavailable Unavailable Hannah Beckwith PA-C Unavailable [phone] Mallika Soares MD Unavailable Reason for Visit * Reason Onset Date Comments VNA Call 01/26/2023 Encounter Details Date Type Department Care Team Description 01/26/2023 Telephone Adult Medicine [address] [address] Marcin Segura MD [address] [place] [address] VNA Call Social History Tobacco Use Types [...] week 08/28/2022 How often do you attend jehovah's witness or mandaen serv ices? Never 08/28/2022 Do you belong to any clubs o r organizations such as jehovah's witness groups, unions, [employer] or athletic groups, or school groups? Yes [...] encounter Miscellaneous Notes * Telephone Encounter - Karie HugginsP.NValerio - 01/26/2023 2:48 PM EDT JAGRUTI Segura Pt started nursing today and next week will start OT and PT * Telephone Encounter - Pamella Lockhart - 01/26/2023 2:44 PM EDT VNA CALL Which [facility] office is calling? [facility] Full name of caller: Delia The caller is A nurse Is the caller at the patients home?: NO Reason for call: Pt started nursing today and next week with start OT and PT just and FYI Does caller need an urgent call back? [...] documented as of this encounter Care Teams Transmission Inspector Relationship Specialty Start Date End Date Marcin Segura MD [address] [place] [address] PCP - General 10/12/1992 Sal Padilla MD [address] [place] [address] Nephrology 08/28/22 Kamlesh Webb [address] [place] [address] Ophthalmology 08/28/22 Chris Donaldson [address] [place] [address] Otolaryngology 08/28/22 Hannah Beckwith PA-C 300 [facility] [address] [place] [phone] Vascular Surgery 08/28/22 Mallika Soares MD [address] [place] [phone] Specialist Pulmonology 08/28/22 documented as of this encounter
--- OUTSIDE RECORDS SUMMARY | 2025-11-02 12:36 | XMS_ITS | Encounter Summary ---
Author Organization [facility] Prior to 09/12/2024 Address [address] [place] [address] Care Team Providers Care Securities Settlement Processor Name Role Phone Marcin Segura MD Primary Care Provider [phone] Sal Padilla MD Unavailable Unavailable Kamlesh Webb Unavailable Unavailable Chris Donaldson Unavailable Unavailable Hannah Beckwith PA-C Unavailable [phone] Mallika Soares MD Unavailable Encounter Details Date Type Department Care Team Description 09/27/2020 Academic Associate Report Medical Records [address] [place] [id number] [place] [address] Social History Tobacco Use Types Packs/Day [...] week 08/28/2022 How often do you attend jain or baptist serv ices? Never 08/28/2022 Do you belong to any clubs o r organizations such as jain groups, unions, fraternal or athletic groups, or [...] have Coronavirus / COVID-19? No / Unsure 09/20/2020 8:55 AM EST documented as of this encounter Plan of Treatment Not on file documented as of this encounter Visit Diagnoses Not on filedocumented in this encounter Additional Health Concerns Infection Onset Date Last Indicated Resolved Time COVID-19 Comment:VNA advised Positive Covid on 02/10/22 02/10/2022 02/16/2022 documented as of this encounter Care Teams Securities Settlement Processor Relationship Specialty Start Date End Date Marcin Segura MD [address] [place] [address] PCP - General 10/12/1992 Sal Padilla MD [address] [place] [address] Nephrology 08/28/22 Kamlesh Webb [address] [place] [address] Ophthalmology 08/28/22 Chris Donaldson [address] [place] [address] Otolaryngology 08/28/22 Hannah Beckwith PA-C [address] [place] [phone] Vascular Surgery 08/28/22 Mallika Soares MD [address] [place] [address] Specialist Pulmonology 08/28/22 documented as of this encounter
--- OUTSIDE RECORDS SUMMARY | 2025-11-02 12:36 | XMS_ITS | Encounter Summary ---
Author Organization [employer] [facility] Prior to 09/12/2024 Address [address] [place] [address] Care Team Providers Care Bulk Clerk Name Role Phone Marcin Segura MD Primary Care Provider [phone] Sal Padilla MD Unavailable Unavailable Kamlesh Webb Unavailable Unavailable Chris Donaldson Unavailable Unavailable Hannah Beckwith PA-C Unavailable [phone] Mallika Soares MD Unavailable Encounter Details Date Type Department Care Team Description 10/29/2016 Emt I/85 Report Medical Records [address] [place] [address] Simone Brown MD Social History Tobacco Use Types Packs/Day [...] week 08/28/2022 How often do you attend temple or pentecostalism serv ices? Never 08/28/2022 Do you belong to any clubs o r organizations such as temple groups, unions, fraternal or athletic groups, or [...] place to sleep or slept in a skilled nursing (including now)? No 08/28/2022 Sex Assigned at [...] documented as of this encounter Care Teams Bulk Clerk Relationship Specialty Start Date End Date Marcin Segura MD [address] [place] [address] PCP - General 10/12/1992 Sal Padilla MD [address] [place] [address] Nephrology 08/28/22 Kamlesh Webb [address] [place] [address] Ophthalmology 08/28/22 Chris Donaldson [address] [place] [address] Otolaryngology 08/28/22 Hannah Beckwith PA-C 300 [facility] [address] [place] [phone] Vascular Surgery 08/28/22 Mallika Soares MD [address] [place] [phone] Specialist Pulmonology 08/28/22 documented as of this encounter
--- OUTSIDE RECORDS SUMMARY | 2025-11-02 12:37 | XMS_ITS | Encounter Summary ---
Author Organization [employer] [facility] Prior to 09/12/2024 Address [address] [place] [address] Care Team Providers Care Membership Sales Advisor Name Role Phone Marcin Segura MD Primary Care Provider [phone] Sal Padilla MD Unavailable Unavailable Kamlesh Webb Unavailable Unavailable Chris Donaldson Unavailable Unavailable Hannah Beckwith PA-C Unavailable [phone] Mallika Soares MD Unavailable Encounter Details Date Type Department Care Team Description 08/23/2011 Dressage Judge Report Medical Records [address] [place] [address] Oli Bruno MD Social History Tobacco Use [...] How often do you attend restoration or moravian serv ices? Never 08/28/2022 Do [...] documented as of this encounter Care Teams Membership Sales Advisor Relationship Specialty Start Date End Date Marcin Segura MD [address] [place] [address] PCP - General 10/12/1992 Sal Padilla MD [address] [place] [address] Nephrology 08/28/22 Kamlesh Webb [address] [place] [address] Ophthalmology 08/28/22 Chris Donaldson [address] [place] [address] Otolaryngology 08/28/22 Hannah Beckwith PA-C 300 [facility] [address] [place] [phone] Vascular Surgery 08/28/22 Mallika Soares MD [address] [place] [phone] Specialist Pulmonology 08/28/22 documented as of this encounter
--- OUTSIDE RECORDS SUMMARY | 2025-11-02 12:37 | XMS_ITS | Encounter Summary ---
Author Organization [employer] [facility] Prior to 09/12/2024 Address [address] [place] [address] Care Team Providers Care Forensic Nurse Name Role Phone Marcin Segura MD Primary Care Provider [phone] Sal Padilla MD Unavailable Unavailable Kamlesh Webb Unavailable Unavailable Chris Donaldson Unavailable Unavailable Hannah Beckwith PA-C Unavailable [phone] Mallika Soares MD Unavailable Encounter Details Date Type Department Care Team Description 04/28/2011 Hospital Medical Records [address] [place] [address] Simone Brown MD Social History Tobacco Use [...] How often do you attend taoist or yarsanism serv ices? Never 08/28/2022 Do you belong to any clubs o r organizations such as taoist groups, unions, fraternal or athletic groups, or [...] documented as of this encounter Care Teams Forensic Nurse Relationship Specialty Start Date End Date Marcin Segura MD [address] [place] [address] PCP - General 10/12/1992 Sal Padilla MD [address] [place] [address] Nephrology 08/28/22 Kamlesh Webb [address] [place] [address] Ophthalmology 08/28/22 Chris Donaldson [address] [place] [address] Otolaryngology 08/28/22 Hannah Beckwith PA-C 300 [facility] [address] [place] [phone] Vascular Surgery 08/28/22 Mallika Soares MD [address] [place] [phone] Specialist Pulmonology 08/28/22 documented as of this encounter
--- OUTSIDE RECORDS SUMMARY | 2025-11-02 12:37 | XMS_ITS | Encounter Summary ---
Author Organization [facility] [facility] Prior to 09/12/2024 Address [address] [place] [address] Care Team Providers Care Application Support Consultant Name Role Phone Marcin Segura MD Primary Care Provider [phone] Sal Padilla MD Unavailable Unavailable Kamlesh Webb Unavailable Unavailable Chris Donaldson Unavailable Unavailable Hannah Beckwith PA-C Unavailable [phone] Mallika Soares MD Unavailable Encounter Details Date Type Department Care Team Description 03/16/2017 Palletizer Operator Report Medical Records [address] [place] [address] Surendra Galaviz MD Social History Tobacco Use [...] week 08/28/2022 How often do you attend hinduism or mu-ism serv ices? Never 08/28/2022 Do you belong to any clubs o r organizations such as hinduism groups, unions, fraternal or athletic groups, or [...] documented as of this encounter Care Teams Application Support Consultant Relationship Specialty Start Date End Date Marcin Segura MD [address] [place] [address] PCP - General 10/12/1992 Sal Padilla MD [address] [place] [address] Nephrology 08/28/22 Kamlesh Webb [address] [place] [address] Ophthalmology 08/28/22 Chris Donaldson [address] [place] [address] Otolaryngology 08/28/22 Hannah Beckwith PA-C 300 [facility] [address] [place] [phone] Vascular Surgery 08/28/22 Mallika Soares MD [address] [place] [phone] Specialist Pulmonology 08/28/22 documented as of this encounter
--- OUTSIDE RECORDS SUMMARY | 2025-11-02 12:37 | XMS_ITS | Encounter Summary ---
Author Organization [employer] [facility] Prior to 09/12/2024 Address [address] [place] [address] Care Team Providers Care Mft Name Role Phone Marcin Segura MD Primary Care Provider [phone] Sal Padilla MD Unavailable Unavailable Kamlesh Webb Unavailable Unavailable Chris Donaldson Unavailable Unavailable Hannah Beckwith PA-C Unavailable [phone] Mallika Soares MD Unavailable Encounter Details Date Type Department Care Team Description 09/21/2011 Building Supplies Salesperson Retail Report Medical Records [address] [place] [address] Oscar Gonzalez Social History Tobacco Use Types Packs/Day Years [...] week 08/28/2022 How often do you attend lutheran or islam serv ices? Never 08/28/2022 Do you belong to any clubs o r organizations such as lutheran groups, unions, fraternal or athletic groups, or [...] place to sleep or slept in a correction (including now)? No 08/28/2022 Sex Assigned at [...] documented as of this encounter Care Teams Mft Relationship Specialty Start Date End Date Marcin Segura MD [address] [place] [address] PCP - General 10/12/1992 Sal Padilla MD [address] [place] [address] Nephrology 08/28/22 Kamlesh Webb [address] [place] [address] Ophthalmology 08/28/22 Chris Donaldson [address] [place] [address] Otolaryngology 08/28/22 Hannah Beckwith PA-C 300 [facility] [address] [place] [phone] Vascular Surgery 08/28/22 Mallika Soares MD [address] [place] [phone] Specialist Pulmonology 08/28/22 documented as of this encounter
--- OUTSIDE RECORDS SUMMARY | 2025-11-02 12:37 | XMS_ITS | Encounter Summary ---
Author Organization [facility] Prior to 09/12/2024 Address [address] [place] [address] Care Team Providers Care Precipitator Name Role Phone Marcin Segura MD Primary Care Provider [phone] Sal Padilla MD Unavailable Unavailable Kamlesh Webb Unavailable Unavailable Chris Donaldson Unavailable Unavailable Hannah Beckwith PA-C Unavailable [phone] Mallika Soares MD Unavailable Encounter Details Date Type Department Care Team Description 08/23/2011 Cap Inspector Report Medical Records [address] [place] [address] Josiah Silva PA-C Social History Tobacco Use [...] How often do you attend synagogue or samaritan serv ices? Never 08/28/2022 Do [...] place to sleep or slept in a jail (including now)? No 08/28/2022 Sex Assigned at [...] documented as of this encounter Care Teams Precipitator Relationship Specialty Start Date End Date Marcin Segura MD [address] [place] [address] PCP - General 10/12/1992 Sal Padilla MD [address] [place] [address] Nephrology 08/28/22 Kamlesh Webb [address] [place] [address] Ophthalmology 08/28/22 Chris Donaldson [address] [place] [address] Otolaryngology 08/28/22 Hannah Beckwith PA-C 300 [facility] [address] [place] [phone] Vascular Surgery 08/28/22 Mallika Soares MD [address] [place] [phone] Specialist Pulmonology 08/28/22 documented as of this encounter
--- OUTSIDE RECORDS SUMMARY | 2025-11-02 12:37 | XMS_ITS | Encounter Summary ---
Author Organization [employer] [facility] Prior to 09/12/2024 Address [address] [place] [address] Care Team Providers Care Commercial Energy Auditor Name Role Phone Marcin Segura MD Primary Care Provider [phone] Sal Padilla MD Unavailable Unavailable Kamlesh Webb Unavailable Unavailable Chris Donaldson Unavailable Unavailable Hannah Beckwith PA-C Unavailable Mallika Soares MD Unavailable Encounter Details Date Type Department Care Team Description 08/31/2011 Supervisor Of Communications Report Medical Records [address] [place] [address] Oli Bruno MD Social History Tobacco Use [...] often do you attend oriental orthodox or latter-day serv ices? Never 08/28/2022 Do you belong to any clubs o r organizations such as oriental orthodox groups, unions, fraternal or athletic groups, or [...] documented as of this encounter Care Teams Commercial Energy Auditor Relationship Specialty Start Date End Date Marcin Segura MD [address] [place] [address] PCP - General 10/12/1992 Sal Padilla MD [address] [place] [address] Nephrology 08/28/22 Kamlesh Webb [address] [place] [address] Ophthalmology 08/28/22 Chris Donaldson [address] [place] [address] Otolaryngology 08/28/22 Hannah Beckwith PA-C 300 [facility] [address] [place] [phone] Vascular Surgery 08/28/22 Mallika Soares MD [address] [place] [phone] Specialist Pulmonology 08/28/22 documented as of this encounter
--- OUTSIDE RECORDS SUMMARY | 2025-11-02 12:37 | XMS_ITS | Encounter Summary ---
Author Organization [employer] [facility] Prior to 09/12/2024 Address [address] [place] [address] Care Team Providers Care Hedis Abstractor Name Role Phone Marcin Segura MD Primary Care Provider [phone] Sal Padilla MD Unavailable Unavailable Kamlesh Webb Unavailable Unavailable Chris Donaldson Unavailable Unavailable Hannah Beckwith PA-C Unavailable [phone] Mallika Soares MD Unavailable Encounter Details Date Type Department Care Team Description 09/14/2017 Fur Liner Report Medical Records [address] [place] [address] Angelique Delvalle Social History Tobacco Use Types [...] How often do you attend caodaism or quaker serv ices? Never 08/28/2022 Do [...] documented as of this encounter Care Teams Hedis Abstractor Relationship Specialty Start Date End Date Marcin Segura MD [address] [place] [address] PCP - General 10/12/1992 Sal Padilla MD [address] [place] [address] Nephrology 08/28/22 Kamlesh Webb [address] [place] [address] Ophthalmology 08/28/22 Chris Donaldson [address] [place] [address] Otolaryngology 08/28/22 Hannah Beckwith PA-C 300 [facility] [address] [place] [phone] Vascular Surgery 08/28/22 Mallika Soares MD [address] [place] [phone] Specialist Pulmonology 08/28/22 documented as of this encounter
--- OUTSIDE RECORDS SUMMARY | 2025-11-02 12:37 | XMS_ITS | Encounter Summary ---
Author Organization [facility] Prior to 09/12/2024 Address [address] [place] [address] Care Team Providers Care Butadiene Converter Utility Operator Name Role Phone Mracin Segura MD Primary Care Provider [phone] Sal Padilla MD Unavailable Unavailable Kamlesh Webb Unavailable Unavailable Chris Donaldson Unavailable Unavailable Hannah Beckwith PA-C Unavailable Mallika Soares MD Unavailable Encounter Details Date Type Department Care Team Description 04/03/2017 SCAN Medical Records [address] [place] [address] Abstract, Provider Social History Tobacco Use Types [...] often do you attend roman catholic or latter-day serv ices? Never 08/28/2022 Do [...] place to sleep or slept in a care home (including now)? No 08/28/2022 Sex Assigned at Date Recorded Not on file Job Start Date Occupation Industry Not on file Not on file Not on file documented as of this encounter Plan of Treatment Not on file documented as of this encounter Procedures Procedure Name Priority Date/Time Associated Diagnosis Comments OUTSIDE VASCULAR STUDY Routine 03/28/2017 documented in this encounter Results * OUTSIDE VASCULAR STUDY (03/28/2017) Provider Abstract CARDIOLOGY documented in this encounter Visit Diagnoses Not on filedocumented in this encounter Additional Health Concerns Infection Onset Date Last Indicated Resolved Time COVID-19 Comment:VNA advised Positive Covid on 02/10/22 02/10/2022 02/16/2022 documented as of this encounter Care Teams Butadiene Converter Utility Operator Relationship Specialty Start Date End Date Marcin Segura MD [address] [place] [address] PCP - General 10/12/1992 Sal Padilla MD [address] [place] [address] Nephrology 08/28/22 Kamlesh Webb [address] [place] [address] Ophthalmology 08/28/22 Chris Donaldson [address] [place] [address] Otolaryngology 08/28/22 Hannah Beckwith PA-C 300 [facility] [address] [place] [phone] Vascular Surgery 08/28/22 Mallika Soares MD [address] [place] [phone] Specialist Pulmonology 08/28/22 documented as of this encounter
--- OUTSIDE RECORDS SUMMARY | 2025-11-02 12:37 | XMS_ITS | Encounter Summary ---
Author Organization [employer] [facility] Prior to 09/12/2024 Address [address] [place] [address] Care Team Providers Care Sampler Radioactive Waste Name Role Phone Marcin Segura MD Primary Care Provider [phone] Sal Padilla MD Unavailable Unavailable Kamlesh Webb Unavailable Unavailable Chris Donaldson Unavailable Unavailable Hannah Beckwith PA-C Unavailable [phone] Mallika Soares MD Unavailable Encounter Details Date Type Department Care Team Description 12/28/2010 Mining Analyst Report Medical Records [address] [place] [address] Oli Bruno MD Social History Tobacco Use [...] How often do you attend episcopalian or temple serv ices? Never 08/28/2022 Do [...] documented as of this encounter Care Teams Sampler Radioactive Waste Relationship Specialty Start Date End Date Marcin Segura MD [address] [place] [address] PCP - General 10/12/1992 Sal Padilla MD [address] [place] [address] Nephrology 08/28/22 Kamlesh Webb [address] [place] [address] Ophthalmology 08/28/22 Chris Donaldson [address] [place] [address] Otolaryngology 08/28/22 Hannah Beckwith PA-C 300 [facility] [address] [place] [phone] Vascular Surgery 08/28/22 Mallika Soares MD [address] [place] [phone] Specialist Pulmonology 08/28/22 documented as of this encounter
--- OUTSIDE RECORDS SUMMARY | 2025-11-02 12:37 | XMS_ITS | Encounter Summary ---
Author Organization [employer] [facility] Prior to 09/12/2024 Address [address] [place] [address] Care Team Providers Care Rejector Name Role Phone Marcin Segura MD Primary Care Provider [phone] Sal Padilla MD Unavailable Unavailable Kamlesh Webb Unavailable Unavailable Chris Donaldson Unavailable Unavailable Hannah Beckwith PA-C Unavailable [phone] Mallika Soares MD Unavailable Encounter Details Date Type Department Care Team Description 05/11/2011 Baggageman Report Medical Records [address] [place] [address] Josiah Silva PA-C Social History Tobacco Use [...] How often do you attend jainism or latter-day serv ices? Never 08/28/2022 Do [...] documented as of this encounter Care Teams Rejector Relationship Specialty Start Date End Date Marcin Segura MD [address] [place] [address] PCP - General 10/12/1992 Sal Padilla MD [address] [place] [address] Nephrology 08/28/22 Kamlesh Webb [address] [place] [address] Ophthalmology 08/28/22 Chris Donaldson [address] [place] [address] Otolaryngology 08/28/22 Hannah Beckwith PA-C 300 [facility] [address] [place] [phone] Vascular Surgery 08/28/22 Mallika Soares MD [address] [place] [phone] Specialist Pulmonology 08/28/22 documented as of this encounter
--- OUTSIDE RECORDS SUMMARY | 2025-11-02 12:37 | XMS_ITS | Encounter Summary ---
Author Organization [employer] [facility] Prior to 09/12/2024 Address [address] [place] [address] Care Team Providers Care Slusher Operator Name Role Phone Marcin Segura MD Primary Care Provider [phone] Sal Padilla MD Unavailable Unavailable Kamlesh Webb Unavailable Unavailable Chris Donaldson Unavailable Unavailable Hannah Beckwith PA-C Unavailable [phone] Mallika Soares MD Unavailable Encounter Details Date Type Department Care Team Description 04/12/2011 Colors Custodian Report Medical Records [address] [place] [address] Oli Bruno MD Social History Tobacco Use [...] How often do you attend bahai or oriental orthodox serv ices? Never 08/28/2022 [...] documented as of this encounter Care Teams Slusher Operator Relationship Specialty Start Date End Date Marcin Segura MD [address] [place] [address] PCP - General 10/12/1992 Sal Padilla MD [address] [place] [address] Nephrology 08/28/22 Kamlesh Webb [address] [place] [address] Ophthalmology 08/28/22 Chris Donaldson [address] [place] [address] Otolaryngology 08/28/22 Hannah Beckwith PA-C 300 [facility] [address] [place] [phone] Vascular Surgery 08/28/22 Mallika Soares MD [address] [place] [phone] Specialist Pulmonology 08/28/22 documented as of this encounter
== END 2025-11-02 12:02 | disposition home or self-care (01) ==
LOC: HO.HSMS 10:21
PROVIDERS: PCP Internal Medicine; Visit Provider Nurse Practitioner Family
DX: G20.A2 Parkinson's disease without dyskinesia, with fluctuations (principal); G47.52 REM sleep behavior disorder; G25.81 Restless legs syndrome; F03.90 Unspecified dementia, unspecified severity, without behavioral disturbance, psychotic disturbance, mood disturbance, and anxiety
CPT/HCPCS: 99214; G2211

== ENCOUNTER → 2025-11-02 10:21 | Outpatient (BNVA) | payer MEDICARE, SELFPAY | PROVIDERS: PCP Internal Medicine; Visit Provider Nurse Practitioner Family | DX: G20.A2 Parkinson's disease without dyskinesia, with fluctuations (principal); G47.52 REM sleep behavior disorder; G25.81 Restless legs syndrome; F03.90 Unspecified dementia, unspecified severity, without behavioral disturbance, psychotic disturbance, mood disturbance, and anxiety; Z79.899 Other long term (current) drug therapy | CPT/HCPCS: 99212 ==